=== PATIENT | female | born 1995 | race Caucasian/White ===

== ENCOUNTER 2023-06-10 04:25 | Emergency (ER) | payer OTHER ==
[~2023-06-10] VITALS: Ht 157.5 cm; Wt 54.5 kg
[~2023-06-10 04:25] MED LIST: ACET-1008 PO; CIPR-259 PO; IBUP-1985 PO; METR-159 PO; PANT40TA54 PO
[2023-06-10 04:29] VITALS: TEMP 99.1
[2023-06-10 05:54] LABS: URINE HCG NEGATIVE (NEG)
[2023-06-10 06:04] LABS: INR 1.2 INR; PROTHROMBIN TIME 12.4 SECONDS (9.0-12.0)
[2023-06-10 06:29] LABS: ALANINE AMINOTRANSFERASE 36 U/L (12-78); ALBUMIN 2.6 G/DL (3.4-5.0); ALBUMIN/GLOBULIN RATIO 0.6 (1.1-1.5); ALKALINE PHOSPHATASE 212 IU/L (46-116); ASPARTATE AMINO TRANSFERASE 34 U/L (10-37); BILIRUBIN,TOTAL 0.9 MG/DL (0.1-1.0); BLOOD UREA NITROGEN 2 MG/DL (7-18); BUN/CREATININE RATIO 3.3 (10.0-20.0); CALCIUM 8.7 MG/DL (8.5-10.1); CREATININE 0.61 MG/DL (0.40-0.90); GLUCOSE 101 MG/DL (70-104); TOTAL CARBON DIOXIDE 24.9 MMOL/L (24-32); TOTAL PROTEIN 6.8 G/DL (6.4-8.2); eCRCL 108 ML/MIN; eGFR > 90 ML/MIN
[2023-06-10 06:37] LABS: HEMOGLOBIN 10.7 g/dl (12.0-16.0); MEAN PLATELET VOLUME 8.4 FL (7.4-10.4)
[2023-06-10 06:41] LABS: BASOPHILS # (AUTO) 0.1 X10'3 (0-0.2); BASOPHILS % (AUTO) 0.6 % (0-1); EOSINOPHILS # (AUTO) 0.2 X10'3 (0-0.9); EOSINOPHILS % (AUTO) 2.2 % (0-6); HEMATOCRIT 33.4 % (35.0-45.0); LYMPHOCYTES # (AUTO) 1.6 X10'3 (1.1-4.8); LYMPHOCYTES % (AUTO) 14.7 % (21-51); MEAN CORPUSCULAR HEMOGLOBIN 27.8 PG (27.0-31.0); MEAN CORPUSCULAR HGB CONC 32.1 g/dL (33.0-36.5); MEAN CORPUSCULAR VOLUME 86.7 FL (78-98); MONOCYTES # (AUTO) 0.8 X10'3 (0-0.9); MONOCYTES % (AUTO) 7.5 % (2-12); NEUTROPHILS # (AUTO) 7.9 X10'3 (1.8-7.7); PLATELET COUNT 670 X10'3 (140-440); RED BLOOD COUNT 3.86 X10'6 (4.20-5.60); WHITE BLOOD COUNT 10.6 X10'3 (4.5-11.0)
[2023-06-10 06:46] LABS: ANION GAP 14 (8-16); CHLORIDE 104 MMOL/L (99-107); POTASSIUM 3.7 MMOL/L (3.5-5.1); SODIUM 143 MMOL/L (135-145)
[2023-06-10 08:40] VITALS: BP 118/88; PULSE 88; RESP 16; O2SAT 98
== END 2023-06-10 08:42 | disposition home or self-care (01) ==
LOC: ER 04:26
DX: K62.5 Hemorrhage of anus and rectum (principal); G89.18 Other acute postprocedural pain; Z79.899 Other long term (current) drug therapy; Z88.8 Allergy status to other drugs, medicaments and biological substances; Z79.2 Long term (current) use of antibiotics
CPT/HCPCS: 36415; 74176; 80053; 81025; 85025; 85610; 86885; 86900; 86901; 99285

== ENCOUNTER 2023-07-29 08:06 | Emergency (ER) | payer OTHER ==
[~2023-07-29] VITALS: Ht 157.5 cm; Wt 47.1 kg
[~2023-07-29 08:06] MED LIST changes: -CIPR-259 PO; -METR-159 PO
[2023-07-29 08:09] VITALS: TEMP 98.6
[2023-07-29] MEDS ORDERED: HYDR-3972 PO (08:42)
[2023-07-29] MEDS ORDERED: ONDA-104 (08:42)
[2023-07-29] MEDS ORDERED: PROC10TA97 (08:42)
[2023-07-29] MEDS ORDERED: APIX5TAB3 PO (08:42)
[2023-07-29 08:52] LABS: BASOPHILS % (AUTO) 2.2 % (0-1); EOSINOPHILS % (AUTO) 2.1 % (0-6); HEMATOCRIT 34.2 % (35.0-45.0); HEMOGLOBIN 11.2 g/dl (12.0-16.0); LYMPHOCYTES # (AUTO) 1.2 X10'3 (1.1-4.8); LYMPHOCYTES % (AUTO) 61.7 % (21-51); MEAN CORPUSCULAR HEMOGLOBIN 26.5 PG (27.0-31.0); MEAN CORPUSCULAR HGB CONC 32.6 g/dL (33.0-36.5); MEAN CORPUSCULAR VOLUME 81.2 FL (78-98); MEAN PLATELET VOLUME 7.4 FL (7.4-10.4); MONOCYTES # (AUTO) 0.1 X10'3 (0-0.9); MONOCYTES % (AUTO) 5.4 % (2-12); NEUTROPHILS # (AUTO) 0.6 X10'3 (1.8-7.7); NEUTROPHILS % (AUTO) 28.6 % (42-75); PLATELET COUNT 435 X10'3 (140-440); RED BLOOD COUNT 4.22 X10'6 (4.20-5.60); RED CELL DISTRIBUTION WIDTH 15.1 % (11.5-14.5); WHITE BLOOD COUNT 1.9 X10'3 (4.5-11.0)
[2023-07-29] MEDS: normal saline 1000ml 1,000 ML IV ONE (09:01)
[2023-07-29 09:14] LABS: D-DIMER 0.54 MG/L FEU (0-0.50)
[2023-07-29 10:14] LABS: TOTAL CELLS COUNTED 100
[2023-07-29 10:16] LABS: ANISOCYTOSIS FEW; PLATELET ESTIMATE NORMAL; STOMATOCYTES FEW
[2023-07-29 10:51] VITALS: PULSE 79
[2023-07-29 10:58] LABS: ALANINE AMINOTRANSFERASE 20 U/L (12-78); ALBUMIN 2.8 G/DL (3.4-5.0); ALBUMIN/GLOBULIN RATIO 0.6 (1.1-1.5); ALKALINE PHOSPHATASE 229 IU/L (46-116); ANION GAP 9 (8-16); ASPARTATE AMINO TRANSFERASE 23 U/L (10-37); BILIRUBIN,TOTAL 0.4 MG/DL (0.1-1.0); BLOOD UREA NITROGEN 10 MG/DL (7-18); BUN/CREATININE RATIO 11.9 (10.0-20.0); CHLORIDE 98 MMOL/L (99-107); CREATININE 0.84 MG/DL (0.40-0.90); GLUCOSE 97 MG/DL (70-104); POTASSIUM 4.3 MMOL/L (3.5-5.1); SODIUM 132 MMOL/L (135-145); TOTAL CARBON DIOXIDE 24.8 MMOL/L (24-32); TOTAL PROTEIN 7.5 G/DL (6.4-8.2); eCRCL 73 ML/MIN; eGFR 80 ML/MIN
[2023-07-29 11:06] LABS: THYROID STIMULATING HORMONE 3.82 ulU/ml (0.34-4.50)
[2023-07-29 11:29] VITALS: BP 100/74; RESP 16; O2SAT 75
== END 2023-07-29 11:34 | disposition home or self-care (01) ==
LOC: ER 08:07
DX: R00.0 Tachycardia, unspecified (principal); Z85.038 Personal history of other malignant neoplasm of large intestine
CPT/HCPCS: 36415; 71045; 80053; 84443; 84484; 85007; 85025; 85379; 93005; 96360; 99285; J7030

== ENCOUNTER 2023-08-27 18:36 | Inpatient (IN) | payer MEDICAID, OTHER ==
[~2023-08-27] VITALS: Ht 157.5 cm; Wt 43.1 kg
[~2023-08-27 18:36] MED LIST changes: +APIX5TAB3 PO; +HYDR-3972 PO; +ONDA-104; +PROC10TA97
[2023-08-27] MEDS: normal saline 1000ML IV soln IVB ONE (19:25)
[2023-08-27 19:36] LABS: BASOPHILS # (AUTO) 0.1 X10'3 (0-0.2); NEUTROPHILS # (AUTO) 17.6 X10'3 (1.8-7.7)
[2023-08-27 19:38] LABS: BASOPHILS % (AUTO) 0.3 % (0-1); EOSINOPHILS % (AUTO) 0 % (0-6); HEMATOCRIT 29.7 % (35.0-45.0); HEMOGLOBIN 9.8 g/dl (12.0-16.0); LYMPHOCYTES # (AUTO) 1.2 X10'3 (1.1-4.8); MEAN CORPUSCULAR HGB CONC 32.9 g/dL (33.0-36.5); MEAN CORPUSCULAR VOLUME 75.7 FL (78-98); MONOCYTES # (AUTO) 0.8 X10'3 (0-0.9); MONOCYTES % (AUTO) 4.2 % (2-12); NEUTROPHILS % (AUTO) 89.5 % (42-75); PLATELET COUNT 868 X10'3 (140-440); RED BLOOD COUNT 3.92 X10'6 (4.20-5.60); WHITE BLOOD COUNT 19.7 X10'3 (4.5-11.0)
[2023-08-27 19:48] LABS: ALANINE AMINOTRANSFERASE 11 U/L (12-78); ALBUMIN 2.4 G/DL (3.4-5.0); ALBUMIN/GLOBULIN RATIO 0.4 (1.1-1.5); ALKALINE PHOSPHATASE 168 IU/L (46-116); ANION GAP 13 (8-16); ASPARTATE AMINO TRANSFERASE 14 U/L (10-37); BILIRUBIN,TOTAL 0.2 MG/DL (0.1-1.0); BLOOD UREA NITROGEN 12 MG/DL (7-18); BUN/CREATININE RATIO 14.3 (10.0-20.0); CHLORIDE 97 MMOL/L (99-107); CREATININE 0.84 MG/DL (0.40-0.90); GLUCOSE 134 MG/DL (70-104); POTASSIUM 4.8 MMOL/L (3.5-5.1); SODIUM 135 MMOL/L (135-145); TOTAL PROTEIN 8.2 G/DL (6.4-8.2); eCRCL 70 ML/MIN; eGFR 80 ML/MIN
[2023-08-27 19:56] LABS: BILIRUBIN,DIRECT 0.1 MG/DL (0-0.3); LIPASE 15 U/L (16-77); MAGNESIUM 2.1 MG/DL (1.5-2.4); PRO BRAIN NATRIURETIC PEPTIDE 230 PG/ML (0-125)
[2023-08-27 20:20] LABS: ANISOCYTOSIS 1+; PLATELET ESTIMATE INCREASED; TOTAL CELLS COUNTED 100
[2023-08-27 20:21] LABS: MICROCYTOSIS 1+
[2023-08-27 20:23] LABS: SCHISTOCYTES FEW; TEAR DROP CELLS FEW
[2023-08-27] MEDS: cefepime 2g/NS 100ml ADVANTAGE 100 ML IV STA (20:29)
[2023-08-27] MEDS ORDERED: iohexol 300mg/ml 100ml inj. ONE (20:32)
[2023-08-27 20:33] LABS: BILIRUBIN,URINE NEGATIVE (Neg); CLARITY,URINE CLOUDY (Clear); COLOR,URINE YELLOW (Yellow); GLUCOSE, URINE NEGATIVE (Neg); KETONES,URINE NEGATIVE (Neg); LEUKOCYTE ESTERASE ,URINE NEGATIVE (Neg); NITRITES, URINE NEGATIVE (Neg); OCCULT BLOOD,URINE NEGATIVE (Neg); PH,URINE 6.5 (4.8-8.0); PROTEIN,URINE NEGATIVE (Neg); UROBILINOGEN,URINE 0.2 E.U/dL (0.2-1.0)
[2023-08-27] MEDS: ondansetron/PF 4mg/2ml inj IV ONE (20:33)
[2023-08-27 20:34] LABS: UA COLLECTION TYPE STRAIGHT CATH
[2023-08-27 20:58] LABS: SQUAMOUS EPITHELIAL CELL,UR FEW /LPF (FEW); TRANSITIONAL EPI CELLS,URINE FEW /HPF
[2023-08-27 21:04] LABS: BACTERIA,URINE FEW /HPF (Neg); RBC,URINE 0-2 /HPF (0-2); WBC,URINE 0-4 /HPF (0-4)
[2023-08-27 21:07] LABS: AMORPHOUS PHOSPHATES 1+
[2023-08-27] MEDS: HYDROcodone/acetaminophen 10/325mg tab PO ONE (22:46)
[2023-08-27] MEDS ORDERED: magnesium 2GM in 50ml NS 50 ML IV PRN (23:25)
[2023-08-27] MEDS ORDERED: mag hydrox/Alum hydrox/simeth 30ml oral suspension PO PRN (23:25)
[2023-08-27] MEDS ORDERED: potassium Cl 40MEQ/1/2NS 520ml 520 ML IV PRN (23:25)
[2023-08-27] MEDS ORDERED: acetaminophen 325mg tablet PO PRN (23:25)
[2023-08-27] MEDS ORDERED: magnesium Cl slow-release 64mg tablet PO PRN (23:25)
[2023-08-27] MEDS ORDERED: magnesium 4gm in 100ml NS 100 ML IV PRN (23:25)
[2023-08-27] MEDS ORDERED: potassium Cl 20 mEq SR tablet PO PRN ×2 (23:25)
[2023-08-27] MEDS ORDERED: morphine 2 MG/ML inj. syringe IV PRN (23:25)
[2023-08-27] MEDS: normal saline 1000ml 1,000 ML IV SCH (23:25)
[2023-08-27 23:47] LABS: MAGNESIUM 1.9 MG/DL (1.5-2.4); PHOSPHORUS 4.8 MG/DL (2.3-4.5)
[2023-08-28] MEDS: morphine 2 MG/ML inj. syringe IV PRN ×2 (00:38→06:55)
[2023-08-28] MEDS: HYDROmorphone inj. 0.5 MG/0.5 ML DISP.SYRIN IV ONE ×2 (03:01→04:48)
[2023-08-28] MEDS ORDERED: HYDROmorphone 1 mg/ml syringe IV PRN (03:30)
[2023-08-28] MEDS: piperacillin/tazo 3.375gm/50ml 50 ML IV SCH (04:47)
[2023-08-28] MEDS: ringers solution, lacted 1,000 ML IV ONE (05:32)
[2023-08-28 08:00] VITALS: RESP 20; O2SAT 97
[2023-08-28] MEDS: K and/or MAG REPLACEMENT MC SCH (08:00)
[2023-08-28 08:16] LABS: EOSINOPHILS % (AUTO) 0 % (0-6); LYMPHOCYTES # (AUTO) 0.8 X10'3 (1.1-4.8)
[2023-08-28 08:19] LABS: BASOPHILS # (AUTO) 0.1 X10'3 (0-0.2); BASOPHILS % (AUTO) 0.3 % (0-1); HEMATOCRIT 33.3 % (35.0-45.0); HEMOGLOBIN 10.5 g/dl (12.0-16.0); LYMPHOCYTES % (AUTO) 3.1 % (21-51); MEAN CORPUSCULAR HGB CONC 31.5 g/dL (33.0-36.5); MONOCYTES % (AUTO) 3.7 % (2-12); NEUTROPHILS # (AUTO) 24.3 X10'3 (1.8-7.7); NEUTROPHILS % (AUTO) 92.9 % (42-75); PLATELET COUNT 884 X10'3 (140-440); RED BLOOD COUNT 4.38 X10'6 (4.20-5.60); RED CELL DISTRIBUTION WIDTH 17.3 % (11.5-14.5)
[2023-08-28 08:26] LABS: WHITE BLOOD COUNT 26.1 X10'3 (4.5-11.0)
[2023-08-28 08:33] VITALS: BP 136/101; PULSE 126; RESP 20; O2SAT 95
[2023-08-28 08:38] LABS: ALANINE AMINOTRANSFERASE 7 U/L (12-78); ALBUMIN/GLOBULIN RATIO 0.4 (1.1-1.5); ALKALINE PHOSPHATASE 154 IU/L (46-116); ANION GAP 10 (8-16); ASPARTATE AMINO TRANSFERASE 12 U/L (10-37); BILIRUBIN,TOTAL 0.4 MG/DL (0.1-1.0); BLOOD UREA NITROGEN 13 MG/DL (7-18); BUN/CREATININE RATIO 17.6 (10.0-20.0); CALCIUM 9.3 MG/DL (8.5-10.1); CHLORIDE 99 MMOL/L (99-107); CREATININE 0.74 MG/DL (0.40-0.90); GLUCOSE 123 MG/DL (70-104); POTASSIUM 4.4 MMOL/L (3.5-5.1); SODIUM 135 MMOL/L (135-145); TOTAL CARBON DIOXIDE 26.5 MMOL/L (24-32); TOTAL PROTEIN 7.2 G/DL (6.4-8.2); eCRCL 80 ML/MIN; eGFR > 90 ML/MIN
[2023-08-28 09:19] LABS: TOTAL CELLS COUNTED 100
[2023-08-28 09:20] LABS: ELLIPTOCYTES FEW; PLATELET ESTIMATE INCREASED; POIKILOCYTOSIS 1+; ROULEAUX 1+
[2023-08-28] MEDS: metroNIDAZOLE-Flagyl 500mg/NS 100 ML IV SCH (09:40)
[2023-08-28] MEDS: enoxaparin 40mg/0.4ml syringe SUBCUT SCH (09:43)
[2023-08-28 10:00] VITALS: BP 138/99; PULSE 110; RESP 12; TEMP 97.8; O2SAT 97
[2023-08-28] MEDS: HYDROmorphone 1 mg/ml syringe IV PRN ×2 (10:51→14:11)
[2023-08-28 18:00] VITALS: BP 143/98; PULSE 86; RESP 18; TEMP 97.4; O2SAT 96
[2023-08-28 20:00] VITALS: RESP 20; O2SAT 97
[2023-08-28 22:00] VITALS: BP 145/98; PULSE 114; RESP 17; TEMP 98.9; O2SAT 95
[2023-08-29 06:00] VITALS: BP 177/116; PULSE 103; RESP 16; TEMP 98.1; O2SAT 95
[2023-08-29 06:27] LABS: BASOPHILS % (AUTO) 0.1 % (0-1); EOSINOPHILS % (AUTO) 0 % (0-6); HEMOGLOBIN 9.6 g/dl (12.0-16.0); LYMPHOCYTES # (AUTO) 1.3 X10'3 (1.1-4.8); MEAN PLATELET VOLUME 7.1 FL (7.4-10.4); NEUTROPHILS # (AUTO) 9.7 X10'3 (1.8-7.7)
[2023-08-29 06:29] LABS: HEMATOCRIT 29.7 % (35.0-45.0); LYMPHOCYTES % (AUTO) 11.2 % (21-51); MEAN CORPUSCULAR HEMOGLOBIN 24.7 PG (27.0-31.0); MEAN CORPUSCULAR HGB CONC 32.2 g/dL (33.0-36.5); MEAN CORPUSCULAR VOLUME 76.7 FL (78-98); MONOCYTES # (AUTO) 0.9 X10'3 (0-0.9); MONOCYTES % (AUTO) 7.4 % (2-12); NEUTROPHILS % (AUTO) 81.3 % (42-75); PLATELET COUNT 729 X10'3 (140-440); RED BLOOD COUNT 3.88 X10'6 (4.20-5.60); RED CELL DISTRIBUTION WIDTH 17.5 % (11.5-14.5)
[2023-08-29 06:40] LABS: ALANINE AMINOTRANSFERASE 6 U/L (12-78); ALBUMIN 1.8 G/DL (3.4-5.0); ALBUMIN/GLOBULIN RATIO 0.4 (1.1-1.5); ALKALINE PHOSPHATASE 112 IU/L (46-116); ANION GAP 5 (8-16); ASPARTATE AMINO TRANSFERASE 8 U/L (10-37); BILIRUBIN,TOTAL 0.4 MG/DL (0.1-1.0); BLOOD UREA NITROGEN 19 MG/DL (7-18); BUN/CREATININE RATIO 22.6 (10.0-20.0); CALCIUM 8.7 MG/DL (8.5-10.1); CHLORIDE 104 MMOL/L (99-107); CREATININE 0.84 MG/DL (0.40-0.90); GLUCOSE 118 MG/DL (70-104); SODIUM 138 MMOL/L (135-145); TOTAL CARBON DIOXIDE 28.6 MMOL/L (24-32); TOTAL PROTEIN 6.4 G/DL (6.4-8.2); eCRCL 70 ML/MIN; eGFR 80 ML/MIN
[2023-08-29 10:00] VITALS: BP 129/97; PULSE 103; RESP 14; TEMP 98.6; O2SAT 95
[2023-08-29] MEDS ORDERED: HYDROmorphone 1 mg/ml syringe IV PRN (11:20)
[2023-08-29 13:30] VITALS: RESP 14; O2SAT 95
[2023-08-29 14:30] VITALS: PULSE 85; RESP 16; O2SAT 95
[2023-08-29 20:00] VITALS: RESP 15; O2SAT 95
[2023-08-30 06:00] VITALS: BP 120/79; PULSE 77; RESP 14; TEMP 98.9; O2SAT 95
[2023-08-30 07:30] VITALS: RESP 16
[2023-08-30 09:05] LABS: BASOPHILS % (AUTO) 0.1 % (0-1); MEAN CORPUSCULAR HEMOGLOBIN 24.6 PG (27.0-31.0); MEAN CORPUSCULAR VOLUME 77.6 FL (78-98); MONOCYTES # (AUTO) 0.8 X10'3 (0-0.9); NEUTROPHILS # (AUTO) 8.6 X10'3 (1.8-7.7); WHITE BLOOD COUNT 11.3 X10'3 (4.5-11.0)
[2023-08-30 09:07] LABS: EOSINOPHILS % (AUTO) 0.1 % (0-6); HEMATOCRIT 27.5 % (35.0-45.0); HEMOGLOBIN 8.7 g/dl (12.0-16.0); LYMPHOCYTES # (AUTO) 1.8 X10'3 (1.1-4.8); LYMPHOCYTES % (AUTO) 16.2 % (21-51); MEAN CORPUSCULAR HGB CONC 31.8 g/dL (33.0-36.5); MEAN PLATELET VOLUME 7.2 FL (7.4-10.4); MONOCYTES % (AUTO) 7.1 % (2-12); NEUTROPHILS % (AUTO) 76.5 % (42-75); PLATELET COUNT 599 X10'3 (140-440); RED BLOOD COUNT 3.54 X10'6 (4.20-5.60)
[2023-08-30 09:33] LABS: ALANINE AMINOTRANSFERASE 7 U/L (12-78); ALBUMIN 2.1 G/DL (3.4-5.0); ALBUMIN/GLOBULIN RATIO 0.5 (1.1-1.5); ALKALINE PHOSPHATASE 103 IU/L (46-116); ANION GAP 11 (8-16); ASPARTATE AMINO TRANSFERASE 9 U/L (10-37); BILIRUBIN,TOTAL 0.3 MG/DL (0.1-1.0); BLOOD UREA NITROGEN 20 MG/DL (7-18); BUN/CREATININE RATIO 26.7 (10.0-20.0); CALCIUM 8.6 MG/DL (8.5-10.1); CHLORIDE 106 MMOL/L (99-107); CREATININE 0.75 MG/DL (0.40-0.90); GLUCOSE 72 MG/DL (70-104); POTASSIUM 4.2 MMOL/L (3.5-5.1); SODIUM 144 MMOL/L (135-145); TOTAL CARBON DIOXIDE 26.6 MMOL/L (24-32); eCRCL 79 ML/MIN; eGFR > 90 ML/MIN
[2023-08-30 10:00] VITALS: BP 147/104; RESP 15; TEMP 97.9; O2SAT 96
[2023-08-30] MEDS: magnesium hydroxide 30ml (MOM) UD suspension PO PRN (10:28)
[2023-08-30 18:00] VITALS: BP 141/96; PULSE 80; RESP 20; TEMP 98.4; O2SAT 96
[2023-08-30 20:00] VITALS: RESP 20; O2SAT 96
[2023-08-30] MEDS: ondansetron/PF 4mg/2ml inj IV PRN (20:22)
[2023-08-30 22:00] VITALS: BP 122/95; PULSE 96; RESP 15; TEMP 97.5; O2SAT 93
[2023-08-31 06:00] VITALS: BP 125/90; PULSE 85; RESP 18; TEMP 98; O2SAT 95
[2023-08-31 07:10] LABS: BASOPHILS % (AUTO) 0.1 % (0-1); EOSINOPHILS % (AUTO) 0.1 % (0-6); HEMATOCRIT 26.7 % (35.0-45.0); HEMOGLOBIN 8.4 g/dl (12.0-16.0); LYMPHOCYTES # (AUTO) 1.6 X10'3 (1.1-4.8); MEAN CORPUSCULAR HEMOGLOBIN 24.4 PG (27.0-31.0); MEAN CORPUSCULAR HGB CONC 31.4 g/dL (33.0-36.5); MEAN CORPUSCULAR VOLUME 77.8 FL (78-98); MEAN PLATELET VOLUME 7.5 FL (7.4-10.4); MONOCYTES # (AUTO) 0.8 X10'3 (0-0.9); MONOCYTES % (AUTO) 4.9 % (2-12); NEUTROPHILS # (AUTO) 13.5 X10'3 (1.8-7.7); NEUTROPHILS % (AUTO) 84.9 % (42-75); PLATELET COUNT 517 X10'3 (140-440); RED BLOOD COUNT 3.43 X10'6 (4.20-5.60); RED CELL DISTRIBUTION WIDTH 17.4 % (11.5-14.5); WHITE BLOOD COUNT 15.9 X10'3 (4.5-11.0)
[2023-08-31 07:27] LABS: ALANINE AMINOTRANSFERASE 6 U/L (12-78); ALBUMIN 2.1 G/DL (3.4-5.0); ALBUMIN/GLOBULIN RATIO 0.5 (1.1-1.5); ALKALINE PHOSPHATASE 92 IU/L (46-116); ANION GAP 10 (8-16); ASPARTATE AMINO TRANSFERASE 13 U/L (10-37); BILIRUBIN,TOTAL 0.3 MG/DL (0.1-1.0); BLOOD UREA NITROGEN 16 MG/DL (7-18); CALCIUM 8.7 MG/DL (8.5-10.1); CHLORIDE 108 MMOL/L (99-107); CREATININE 0.64 MG/DL (0.40-0.90); GLUCOSE 69 MG/DL (70-104); POTASSIUM 3.6 MMOL/L (3.5-5.1); SODIUM 146 MMOL/L (135-145); TOTAL CARBON DIOXIDE 28.1 MMOL/L (24-32); TOTAL PROTEIN 6.4 G/DL (6.4-8.2); eCRCL 92 ML/MIN; eGFR > 90 ML/MIN
[2023-08-31 07:52] VITALS: RESP 16; O2SAT 94
[2023-08-31 10:00] VITALS: BP 151/93; PULSE 74; RESP 18; TEMP 98; O2SAT 97
[2023-08-31] MEDS: dextrose 5%-1/4 normal saline 1,000 ML IV SCH (12:46)
[2023-08-31] MEDS: methylnaltrexone br 12mg/0.6ml inj***SubQ only SQ ONE (13:05)
[2023-08-31 18:00] VITALS: BP 129/91; PULSE 70; RESP 11; TEMP 97.3; O2SAT 97
[2023-08-31 20:00] VITALS: RESP 11; O2SAT 97
[2023-08-31 22:00] VITALS: BP 151/98; PULSE 102; RESP 16; TEMP 97.7; O2SAT 96
[2023-08-31] MEDS: LORazepam 2 mg/ml vial IV PRN (22:21)
[2023-09-01 05:00] VITALS: BP 137/96; PULSE 94; RESP 15; TEMP 97.7; O2SAT 97
[2023-09-01 06:12] LABS: BASOPHILS % (AUTO) 0.3 % (0-1); EOSINOPHILS % (AUTO) 0.2 % (0-6); HEMATOCRIT 29.3 % (35.0-45.0); HEMOGLOBIN 9.3 g/dl (12.0-16.0); LYMPHOCYTES # (AUTO) 1.5 X10'3 (1.1-4.8); LYMPHOCYTES % (AUTO) 9.7 % (21-51); MEAN CORPUSCULAR HEMOGLOBIN 24.6 PG (27.0-31.0); MEAN CORPUSCULAR HGB CONC 31.8 g/dL (33.0-36.5); MEAN CORPUSCULAR VOLUME 77.4 FL (78-98); MEAN PLATELET VOLUME 7.6 FL (7.4-10.4); MONOCYTES # (AUTO) 0.7 X10'3 (0-0.9); MONOCYTES % (AUTO) 4.5 % (2-12); NEUTROPHILS # (AUTO) 13.6 X10'3 (1.8-7.7); NEUTROPHILS % (AUTO) 85.3 % (42-75); PLATELET COUNT 588 X10'3 (140-440); RED BLOOD COUNT 3.79 X10'6 (4.20-5.60); RED CELL DISTRIBUTION WIDTH 17.2 % (11.5-14.5); WHITE BLOOD COUNT 15.9 X10'3 (4.5-11.0)
[2023-09-01 06:40] LABS: ALANINE AMINOTRANSFERASE 7 U/L (12-78); ALBUMIN 2.1 G/DL (3.4-5.0); ALBUMIN/GLOBULIN RATIO 0.5 (1.1-1.5); ALKALINE PHOSPHATASE 100 IU/L (46-116); ANION GAP 7 (8-16); ASPARTATE AMINO TRANSFERASE 19 U/L (10-37); BILIRUBIN,TOTAL 0.3 MG/DL (0.1-1.0); BLOOD UREA NITROGEN 10 MG/DL (7-18); BUN/CREATININE RATIO 14.9 (10.0-20.0); CALCIUM 8.6 MG/DL (8.5-10.1); CHLORIDE 103 MMOL/L (99-107); CREATININE 0.67 MG/DL (0.40-0.90); GLUCOSE 123 MG/DL (70-104); POTASSIUM 3.1 MMOL/L (3.5-5.1); SODIUM 141 MMOL/L (135-145); TOTAL CARBON DIOXIDE 30.7 MMOL/L (24-32); TOTAL PROTEIN 6.6 G/DL (6.4-8.2); eCRCL 88 ML/MIN; eGFR > 90 ML/MIN
[2023-09-01 08:00] VITALS: RESP 16; O2SAT 95
[2023-09-01 10:00] VITALS: BP 120/87; PULSE 71; RESP 16; TEMP 97.4; O2SAT 95
[2023-09-01] MEDS ORDERED: magnesium 4gm in 100ml NS 100 ML IV PRN (11:15)
[2023-09-01] MEDS ORDERED: magnesium Cl slow-release 64mg tablet PO PRN (11:15)
[2023-09-01] MEDS ORDERED: potassium Cl 20 mEq SR tablet PO PRN ×2 (11:15)
[2023-09-01] MEDS ORDERED: magnesium 2GM in 50ml NS 50 ML IV PRN (11:15)
[2023-09-01] MEDS: potassium Cl 40MEQ/1/2NS 520ml 520 ML IV PRN (12:13)
[2023-09-01] MEDS: diatr meglu/diatrizoate 30ml oral sol.-(3 dose) bottle PO SCH (13:17)
[2023-09-01 18:00] VITALS: BP 139/96; PULSE 77; RESP 16; TEMP 97.5; O2SAT 96
[2023-09-01 20:00] VITALS: RESP 16; O2SAT 95
[2023-09-01 22:00] VITALS: BP 135/93; PULSE 78; RESP 15; TEMP 97.9; O2SAT 96
[2023-09-02 03:49] VITALS: O2SAT 96
[2023-09-02 06:00] VITALS: BP 123/88; PULSE 85; RESP 15; TEMP 97.8; O2SAT 96
[2023-09-02 08:00] VITALS: RESP 15; O2SAT 96
[2023-09-02 10:00] VITALS: BP 123/88; PULSE 52; RESP 11; TEMP 98.7; O2SAT 100
[2023-09-02] MEDS ORDERED: Dextrose 10%-water IV solution 1,000 ML IV PRN (15:15)
[2023-09-02] MEDS: HYDROmorphone 1 mg/ml syringe IV PRN (16:20)
[2023-09-02 18:00] VITALS: BP 153/99; PULSE 84; RESP 10; TEMP 97.4; O2SAT 97
[2023-09-02 20:00] VITALS: RESP 12; O2SAT 96
[2023-09-03] VITALS (23 sets, daily range): BP systolic 112–149; BP diastolic 64–108; PULSE 63–124; RESP 10–21; TEMP 98–98.7; O2SAT 94–100
[2023-09-03 07:09] LABS: ALANINE AMINOTRANSFERASE 8 U/L (12-78); ALBUMIN/GLOBULIN RATIO 0.4 (1.1-1.5); ALKALINE PHOSPHATASE 89 IU/L (46-116); ANION GAP 6 (8-16); ASPARTATE AMINO TRANSFERASE 14 U/L (10-37); BILIRUBIN,TOTAL 0.5 MG/DL (0.1-1.0); BLOOD UREA NITROGEN 5 MG/DL (7-18); BUN/CREATININE RATIO 11.6 (10.0-20.0); CALCIUM 8.8 MG/DL (8.5-10.1); CHLORIDE 99 MMOL/L (99-107); CREATININE 0.43 MG/DL (0.40-0.90); GLUCOSE 104 MG/DL (70-104); MAGNESIUM 2.2 MG/DL (1.5-2.4); PHOSPHORUS 3.2 MG/DL (2.3-4.5); POTASSIUM 3.8 MMOL/L (3.5-5.1); PREALBUMIN 13.1 MG/DL (19-36); SODIUM 135 MMOL/L (135-145); TOTAL CARBON DIOXIDE 29.7 MMOL/L (24-32); TRIGLYCERIDES 104 MG/DL (20-135); eCRCL 137 ML/MIN; eGFR > 90 ML/MIN
[2023-09-03 07:14] LABS: BASOPHILS % (AUTO) 0.3 % (0-1); EOSINOPHILS # (AUTO) 0.1 X10'3 (0-0.9); EOSINOPHILS % (AUTO) 0.6 % (0-6); HEMATOCRIT 31.9 % (35.0-45.0); HEMOGLOBIN 10.1 g/dl (12.0-16.0); LYMPHOCYTES # (AUTO) 1.9 X10'3 (1.1-4.8); LYMPHOCYTES % (AUTO) 13.9 % (21-51); MEAN CORPUSCULAR HEMOGLOBIN 24.7 PG (27.0-31.0); MEAN CORPUSCULAR HGB CONC 31.5 g/dL (33.0-36.5); MEAN CORPUSCULAR VOLUME 78.5 FL (78-98); MEAN PLATELET VOLUME 8.3 FL (7.4-10.4); MONOCYTES # (AUTO) 1.1 X10'3 (0-0.9); MONOCYTES % (AUTO) 8.2 % (2-12); NEUTROPHILS # (AUTO) 10.7 X10'3 (1.8-7.7); PLATELET COUNT 531 X10'3 (140-440); RED BLOOD COUNT 4.07 X10'6 (4.20-5.60); RED CELL DISTRIBUTION WIDTH 17.5 % (11.5-14.5); WHITE BLOOD COUNT 13.9 X10'3 (4.5-11.0)
[2023-09-03] MEDS: MVI, adult No.4 with vit. K 10 ML in dextrose 5% water 500ml 500 ML IV SCH (08:01)
[2023-09-03] MEDS: fat emulsion 20% inj. 100 ML IV SCH (08:05)
[2023-09-03] MEDS ORDERED: BUPIVAcaine/PF 2.5mg/ml (0.25%) 10ml vial ONE (13:27)
[2023-09-03] MEDS ORDERED: BUPIVACAINE liposomal/PF 13.3 MG/ML vial IM ONE (13:27)
[2023-09-03] MEDS ORDERED: sevoflurane 250ml liquid IH ONE (14:57)
[2023-09-03] MEDS ORDERED: midazolam 1 mg/ML 2ml injection ONE (15:05)
[2023-09-03] MEDS ORDERED: fentaNYL /PF 50mcg/ml 5ml ampule ONE (15:05)
[2023-09-03] MEDS ORDERED: propofol inj 20 ML IV ONE (15:28)
[2023-09-03] MEDS ORDERED: LIDOcaine 2% (20mg/ml) 5ml vial ONE (15:28)
[2023-09-03] MEDS ORDERED: rocuronium 10mg/ml inj IV ONE ×2 (15:28→16:42)
[2023-09-03] MEDS ORDERED: methylene blue (5mg/ml) 50mg/10ml ampul IV ONE (15:35)
[2023-09-03] MEDS ORDERED: protamine sulfate 10mg/ml inj. ONE (15:36)
[2023-09-03] MEDS ORDERED: labetalol 20mg/4ml (5mg/ml) syringe IV PRN (15:45)
[2023-09-03] MEDS ORDERED: ondansetron/PF 4mg/2ml inj IV PRN (15:45)
[2023-09-03] MEDS ORDERED: proCHLORperazine 10 MG/2 ml inj IV PRN (15:45)
[2023-09-03] MEDS ORDERED: enalaprilat dihydrate 2.5mg/2ml vial IV PRN (15:45)
[2023-09-03] MEDS ORDERED: morphine 4 MG/ML inj SYRINge IV PRN (15:45)
[2023-09-03] MEDS ORDERED: meperidine/PF 25mg/ml syringe IV PRN ×2 (15:45)
[2023-09-03] MEDS ORDERED: dexamethasone sod phosphate 4mg/ml inj. ONE (16:02)
[2023-09-03] MEDS ORDERED: ceFOXitin 1000 MG inj ONE ×2 (16:02)
[2023-09-03] MEDS ORDERED: ondansetron/PF 4mg/2ml inj ONE (17:08)
[2023-09-03] MEDS: meperidine/PF 25mg/ml syringe IV PRN (17:58)
[2023-09-03] MEDS: ringers solution, lacted 1,000 ML IV SCH (17:59)
[2023-09-03] MEDS: morphine 2 MG/ML inj. syringe IV PRN (18:34)
[2023-09-03] MEDS: diazepam inj 5 MG/ML inj. IV PRN (23:54)
[2023-09-04] MEDS: piperacillin/tazo 3.375gm/50ml 50 ML IV SCH (00:05)
[2023-09-04 02:00] VITALS: BP 132/100; PULSE 123; RESP 16; TEMP 97.2; O2SAT 97
[2023-09-04 06:00] VITALS: BP 140/98; PULSE 125; RESP 16; TEMP 97; O2SAT 95
[2023-09-04 08:23] LABS: ALANINE AMINOTRANSFERASE 7 U/L (12-78); ALBUMIN 1.7 G/DL (3.4-5.0); ALBUMIN/GLOBULIN RATIO 0.4 (1.1-1.5); ALKALINE PHOSPHATASE 69 IU/L (46-116); ANION GAP 6 (8-16); ASPARTATE AMINO TRANSFERASE 25 U/L (10-37); BILIRUBIN,TOTAL 0.5 MG/DL (0.1-1.0); BLOOD UREA NITROGEN 12 MG/DL (7-18); BUN/CREATININE RATIO 29.3 (10.0-20.0); CALCIUM 8.2 MG/DL (8.5-10.1); CHLORIDE 104 MMOL/L (99-107); CREATININE 0.41 MG/DL (0.40-0.90); GLUCOSE 126 MG/DL (70-104); PHOSPHORUS 2.9 MG/DL (2.3-4.5); POTASSIUM 4.9 MMOL/L (3.5-5.1); SODIUM 135 MMOL/L (135-145); TOTAL CARBON DIOXIDE 25.3 MMOL/L (24-32); TOTAL PROTEIN 6.3 G/DL (6.4-8.2); eCRCL 160 ML/MIN; eGFR > 90 ML/MIN
[2023-09-04] MEDS ORDERED: naloxone 0.4 mg/ml inj IV PRN (11:35)
[2023-09-04] MEDS ORDERED: HYDROmorph/NS 0.2 mg/ml PCA 100 ML IV SCH (11:52)
[2023-09-04 14:14] LABS: EOSINOPHILS % (AUTO) 0 % (0-6); HEMOGLOBIN 9.3 g/dl (12.0-16.0); WHITE BLOOD COUNT 18.2 X10'3 (4.5-11.0)
[2023-09-04] MEDS: HYDROmorph/NS 0.2 mg/ml PCA 100 ML IV SCH (14:14)
[2023-09-04 14:17] LABS: BASOPHILS % (AUTO) 0.2 % (0-1); LYMPHOCYTES % (AUTO) 5.5 % (21-51); MEAN CORPUSCULAR HEMOGLOBIN 24.5 PG (27.0-31.0); MEAN CORPUSCULAR HGB CONC 30.9 g/dL (33.0-36.5); MEAN CORPUSCULAR VOLUME 79.2 FL (78-98); MEAN PLATELET VOLUME 8.5 FL (7.4-10.4); MONOCYTES # (AUTO) 0.9 X10'3 (0-0.9); MONOCYTES % (AUTO) 4.8 % (2-12); NEUTROPHILS # (AUTO) 16.3 X10'3 (1.8-7.7); NEUTROPHILS % (AUTO) 89.5 % (42-75); PLATELET COUNT 626 X10'3 (140-440); RED BLOOD COUNT 3.79 X10'6 (4.20-5.60); RED CELL DISTRIBUTION WIDTH 18.3 % (11.5-14.5)
[2023-09-04 14:47] LABS: ANISOCYTOSIS 2+; LARGE PLATELETS FEW; MICROCYTOSIS 1+; PLATELET ESTIMATE INCREASED
[2023-09-04 14:48] LABS: BURR CELLS 1+; TEAR DROP CELLS FEW
[2023-09-04 14:49] LABS: POLYCHROMASIA FEW
[2023-09-04 14:50] LABS: ELLIPTOCYTES FEW
[2023-09-04 18:00] VITALS: BP 126/102; PULSE 130; RESP 18; TEMP 97.8; O2SAT 96
[2023-09-04 22:00] VITALS: BP 135/70; PULSE 130; RESP 16; TEMP 97.7; O2SAT 97
[2023-09-04 23:00] VITALS: PULSE 121
[2023-09-05] VITALS (8 sets, daily range): BP systolic 123–140; BP diastolic 85–104; PULSE 120–139; RESP 16–18; TEMP 97.4–98.3; O2SAT 97–98
[2023-09-05 07:44] LABS: BASOPHILS # (AUTO) 0.1 X10'3 (0-0.2); BASOPHILS % (AUTO) 0.3 % (0-1); EOSINOPHILS # (AUTO) 0.1 X10'3 (0-0.9); EOSINOPHILS % (AUTO) 0.4 % (0-6); HEMATOCRIT 28.9 % (35.0-45.0); HEMOGLOBIN 9.1 g/dl (12.0-16.0); LYMPHOCYTES # (AUTO) 1.6 X10'3 (1.1-4.8); LYMPHOCYTES % (AUTO) 10.1 % (21-51); MEAN CORPUSCULAR HEMOGLOBIN 24.7 PG (27.0-31.0); MEAN CORPUSCULAR HGB CONC 31.4 g/dL (33.0-36.5); MEAN CORPUSCULAR VOLUME 78.6 FL (78-98); MEAN PLATELET VOLUME 8.3 FL (7.4-10.4); MONOCYTES # (AUTO) 1.4 X10'3 (0-0.9); MONOCYTES % (AUTO) 9.1 % (2-12); NEUTROPHILS # (AUTO) 12.5 X10'3 (1.8-7.7); NEUTROPHILS % (AUTO) 80.1 % (42-75); PLATELET COUNT 563 X10'3 (140-440); RED BLOOD COUNT 3.68 X10'6 (4.20-5.60); RED CELL DISTRIBUTION WIDTH 18.8 % (11.5-14.5); WHITE BLOOD COUNT 15.7 X10'3 (4.5-11.0)
[2023-09-05 08:03] LABS: ALANINE AMINOTRANSFERASE 6 U/L (12-78); ALBUMIN 1.7 G/DL (3.4-5.0); ALBUMIN/GLOBULIN RATIO 0.3 (1.1-1.5); ALKALINE PHOSPHATASE 81 IU/L (46-116); ANION GAP 3 (8-16); ASPARTATE AMINO TRANSFERASE 23 U/L (10-37); BILIRUBIN,TOTAL 0.4 MG/DL (0.1-1.0); BLOOD UREA NITROGEN 12 MG/DL (7-18); BUN/CREATININE RATIO 27.3 (10.0-20.0); CALCIUM 8.5 MG/DL (8.5-10.1); CHLORIDE 99 MMOL/L (99-107); CREATININE 0.44 MG/DL (0.40-0.90); GLUCOSE 106 MG/DL (70-104); MAGNESIUM 1.9 MG/DL (1.5-2.4); PHOSPHORUS 3.6 MG/DL (2.3-4.5); PREALBUMIN 12.3 MG/DL (19-36); SODIUM 129 MMOL/L (135-145); TOTAL CARBON DIOXIDE 27.3 MMOL/L (24-32); TOTAL PROTEIN 6.9 G/DL (6.4-8.2); TRIGLYCERIDES 94 MG/DL (20-135); eCRCL 136 ML/MIN; eGFR > 90 ML/MIN
[2023-09-05 08:21] LABS: POTASSIUM 4.8 MMOL/L (3.5-5.1)
[2023-09-05 08:36] LABS: ANISOCYTOSIS 2+; MICROCYTOSIS 1+; PLATELET ESTIMATE INCREASED
[2023-09-05 08:37] LABS: ELLIPTOCYTES FEW; SCHISTOCYTES FEW
[2023-09-05] MEDS: metoprolol tartrate 25mg tablet PO ONE (09:19)
[2023-09-05] MEDS: normal saline 1000ml 1,000 ML IV SCH (11:55)
[2023-09-05] MEDS: ZINC/COPPER/MANGANESE/SELENIUM 1 ML, chromic chloride inj. 10 MCG in AA 5%/CALCIUM/LYTE... IV SCH (19:03)
[2023-09-05] MEDS: metoprolol tartrate 25mg tablet PO SCH (20:22)
[2023-09-05] MEDS: diazepam inj 5 MG/ML inj. IV PRN (20:23)
[2023-09-06] VITALS (10 sets, daily range): BP systolic 114–125; BP diastolic 86–97; PULSE 106–152; RESP 13–22; TEMP 98.1–99.3; O2SAT 98–99
[2023-09-06 02:33] LABS: BASOPHILS # (AUTO) 0.1 X10'3 (0-0.2); BASOPHILS % (AUTO) 0.4 % (0-1); EOSINOPHILS # (AUTO) 0.1 X10'3 (0-0.9); EOSINOPHILS % (AUTO) 0.7 % (0-6); HEMATOCRIT 26.3 % (35.0-45.0); HEMOGLOBIN 8.3 g/dl (12.0-16.0); LYMPHOCYTES # (AUTO) 1.4 X10'3 (1.1-4.8); MEAN CORPUSCULAR HEMOGLOBIN 24.5 PG (27.0-31.0); MEAN CORPUSCULAR HGB CONC 31.6 g/dL (33.0-36.5); MEAN CORPUSCULAR VOLUME 77.5 FL (78-98); MEAN PLATELET VOLUME 7.6 FL (7.4-10.4); MONOCYTES # (AUTO) 1.2 X10'3 (0-0.9); MONOCYTES % (AUTO) 8.7 % (2-12); NEUTROPHILS # (AUTO) 11.3 X10'3 (1.8-7.7); NEUTROPHILS % (AUTO) 80.2 % (42-75); PLATELET COUNT 576 X10'3 (140-440); RED BLOOD COUNT 3.39 X10'6 (4.20-5.60); RED CELL DISTRIBUTION WIDTH 18.9 % (11.5-14.5); WHITE BLOOD COUNT 14.1 X10'3 (4.5-11.0)
[2023-09-06 03:34] LABS: ANISOCYTOSIS 2+; ELLIPTOCYTES FEW; MICROCYTOSIS 1+; PLATELET ESTIMATE INCREASED; POLYCHROMASIA FEW; SCHISTOCYTES FEW; TEAR DROP CELLS FEW
[2023-09-06 11:45] LABS: ALBUMIN 1.6 G/DL (3.4-5.0); ALBUMIN/GLOBULIN RATIO 0.3 (1.1-1.5); ALKALINE PHOSPHATASE 142 IU/L (46-116); ANION GAP 7 (8-16); ASPARTATE AMINO TRANSFERASE 18 U/L (10-37); BILIRUBIN,TOTAL 0.5 MG/DL (0.1-1.0); BLOOD UREA NITROGEN 8 MG/DL (7-18); CALCIUM 8.6 MG/DL (8.5-10.1); CHLORIDE 99 MMOL/L (99-107); GLUCOSE 110 MG/DL (70-104); POTASSIUM 4.1 MMOL/L (3.5-5.1); SODIUM 132 MMOL/L (135-145); TOTAL CARBON DIOXIDE 26.3 MMOL/L (24-32); eCRCL 150 ML/MIN; eGFR > 90 ML/MIN
[2023-09-06 11:51] LABS: ALANINE AMINOTRANSFERASE 12 U/L (12-78)
[2023-09-06] MEDS: PCA WASTE DOCUMENTATION 1 MG ML MC SCH (15:04)
[2023-09-06] MEDS: sodium ferric gluc complex inj 125 MG in normal saline 100ml IV soln 100 ML IV SCH (15:34)
[2023-09-07] VITALS (16 sets, daily range): BP systolic 104–132; BP diastolic 70–92; PULSE 112–160; RESP 16–24; TEMP 97.8–99.4; O2SAT 92–98
[2023-09-07] MEDS ORDERED: metoprolol tartrate 12.5mg (1/2 tablet) PO ONE
[2023-09-07] MEDS: metoprolol tartrate 1mg/ml inj IV ONE ×2 (00:49→05:39)
[2023-09-07] MEDS: ZINC/COPPER/MANGANESE/SELENIUM 1 ML, chromic chloride inj. 10 MCG in AA 5%/CALCIUM/LYTE... IV SCH (08:00)
[2023-09-07] MEDS: HYDROmorphone 1 mg/ml syringe IV PRN (14:49)
[2023-09-07] MEDS: metoprolol tartrate 1mg/ml inj IV PRN (14:50)
[2023-09-07] MEDS: morphine 2 MG/ML inj. syringe IV PRN (16:26)
[2023-09-08] VITALS (10 sets, daily range): BP systolic 107–136; BP diastolic 65–90; PULSE 113–154; RESP 14–22; TEMP 98.4–100; O2SAT 96–100
[2023-09-08 05:20] LABS: BASOPHILS # (AUTO) 0.1 X10'3 (0-0.2); BASOPHILS % (AUTO) 0.6 % (0-1); EOSINOPHILS # (AUTO) 0.2 X10'3 (0-0.9); EOSINOPHILS % (AUTO) 1.2 % (0-6); HEMATOCRIT 25.2 % (35.0-45.0); LYMPHOCYTES # (AUTO) 2.1 X10'3 (1.1-4.8); LYMPHOCYTES % (AUTO) 11.4 % (21-51); MEAN CORPUSCULAR HEMOGLOBIN 24.4 PG (27.0-31.0); MEAN CORPUSCULAR HGB CONC 31.6 g/dL (33.0-36.5); MEAN CORPUSCULAR VOLUME 77.1 FL (78-98); MONOCYTES # (AUTO) 1.5 X10'3 (0-0.9); MONOCYTES % (AUTO) 8.3 % (2-12); NEUTROPHILS # (AUTO) 14.5 X10'3 (1.8-7.7); NEUTROPHILS % (AUTO) 78.5 % (42-75); PLATELET COUNT 588 X10'3 (140-440); RED BLOOD COUNT 3.27 X10'6 (4.20-5.60); RED CELL DISTRIBUTION WIDTH 19.1 % (11.5-14.5); WHITE BLOOD COUNT 18.5 X10'3 (4.5-11.0)
[2023-09-08 05:32] LABS: ALANINE AMINOTRANSFERASE 25 U/L (12-78); ALBUMIN 1.7 G/DL (3.4-5.0); ALBUMIN/GLOBULIN RATIO 0.3 (1.1-1.5); ALKALINE PHOSPHATASE 210 IU/L (46-116); ANION GAP 6 (8-16); ASPARTATE AMINO TRANSFERASE 24 U/L (10-37); BILIRUBIN,TOTAL 0.8 MG/DL (0.1-1.0); BLOOD UREA NITROGEN 12 MG/DL (7-18); BUN/CREATININE RATIO 29.3 (10.0-20.0); CALCIUM 8.9 MG/DL (8.5-10.1); CHLORIDE 98 MMOL/L (99-107); CREATININE 0.41 MG/DL (0.40-0.90); GLUCOSE 103 MG/DL (70-104); MAGNESIUM 1.9 MG/DL (1.5-2.4); PHOSPHORUS 3.7 MG/DL (2.3-4.5); POTASSIUM 4.2 MMOL/L (3.5-5.1); SODIUM 134 MMOL/L (135-145); TOTAL CARBON DIOXIDE 29.9 MMOL/L (24-32); TOTAL PROTEIN 7.5 G/DL (6.4-8.2); eCRCL 142 ML/MIN; eGFR > 90 ML/MIN
[2023-09-08 07:48] LABS: PLATELET ESTIMATE INCREASED
[2023-09-08 07:49] LABS: ANISOCYTOSIS 2+; HYPOCHROMASIA 1+; MICROCYTOSIS 1+; POLYCHROMASIA 1+
[2023-09-08 07:50] LABS: TEAR DROP CELLS FEW
[2023-09-08 07:51] LABS: ELLIPTOCYTES FEW; ROULEAUX 1+; SCHISTOCYTES FEW
[2023-09-08] MEDS: metoprolol tartrate 1mg/ml inj IV ONE (09:41)
[2023-09-08 12:59] LABS: PRO BRAIN NATRIURETIC PEPTIDE 46 PG/ML (0-125)
[2023-09-09] VITALS (12 sets, daily range): BP systolic 114–152; BP diastolic 64–88; PULSE 110–152; RESP 14–20; TEMP 97.2–98.5; O2SAT 98–100
[2023-09-09 02:45] LABS: BASOPHILS # (AUTO) 0.1 X10'3 (0-0.2); BASOPHILS % (AUTO) 0.7 % (0-1); EOSINOPHILS # (AUTO) 0.3 X10'3 (0-0.9); EOSINOPHILS % (AUTO) 1.5 % (0-6); HEMATOCRIT 23.1 % (35.0-45.0); HEMOGLOBIN 7.3 g/dl (12.0-16.0); LYMPHOCYTES # (AUTO) 1.7 X10'3 (1.1-4.8); LYMPHOCYTES % (AUTO) 9.5 % (21-51); MEAN CORPUSCULAR HEMOGLOBIN 24.2 PG (27.0-31.0); MEAN CORPUSCULAR HGB CONC 31.6 g/dL (33.0-36.5); MEAN CORPUSCULAR VOLUME 76.5 FL (78-98); MEAN PLATELET VOLUME 7.9 FL (7.4-10.4); MONOCYTES # (AUTO) 1.5 X10'3 (0-0.9); MONOCYTES % (AUTO) 7.9 % (2-12); NEUTROPHILS # (AUTO) 14.8 X10'3 (1.8-7.7); NEUTROPHILS % (AUTO) 80.4 % (42-75); PLATELET COUNT 487 X10'3 (140-440); RED BLOOD COUNT 3.02 X10'6 (4.20-5.60); WHITE BLOOD COUNT 18.4 X10'3 (4.5-11.0)
[2023-09-09 03:03] LABS: URINE HCG NEGATIVE (NEG)
[2023-09-09 03:13] LABS: ALANINE AMINOTRANSFERASE 39 U/L (12-78); ALBUMIN 1.6 G/DL (3.4-5.0); ALBUMIN/GLOBULIN RATIO 0.3 (1.1-1.5); ALKALINE PHOSPHATASE 241 IU/L (46-116); ANION GAP 7 (8-16); ASPARTATE AMINO TRANSFERASE 32 U/L (10-37); BILIRUBIN,TOTAL 0.6 MG/DL (0.1-1.0); BLOOD UREA NITROGEN 9 MG/DL (7-18); BUN/CREATININE RATIO 23.7 (10.0-20.0); CALCIUM 8.7 MG/DL (8.5-10.1); CHLORIDE 100 MMOL/L (99-107); CREATININE 0.38 MG/DL (0.40-0.90); GLUCOSE 110 MG/DL (70-104); MAGNESIUM 1.8 MG/DL (1.5-2.4); PHOSPHORUS 3.6 MG/DL (2.3-4.5); POTASSIUM 3.9 MMOL/L (3.5-5.1); SODIUM 133 MMOL/L (135-145); TOTAL CARBON DIOXIDE 26.5 MMOL/L (24-32); TOTAL PROTEIN 7.1 G/DL (6.4-8.2); TRIGLYCERIDES 35 MG/DL (20-135); eCRCL 153 ML/MIN; eGFR > 90 ML/MIN
[2023-09-09 03:22] LABS: ANISOCYTOSIS 2+; MICROCYTOSIS 1+; PLATELET ESTIMATE INCREASED
[2023-09-09 03:25] LABS: ELLIPTOCYTES 1+
[2023-09-09 03:27] LABS: HYPOCHROMASIA 1+
[2023-09-09] MEDS ORDERED: iohexol 350MG/ML 100ml bottle IV ONE (10:28)
[2023-09-09] MEDS: HYDROmorphone 1 mg/ml syringe IV PRN (13:45)
[2023-09-09] MEDS: methylnaltrexone br 12mg/0.6ml inj***SubQ only SQ SCH (14:59)
[2023-09-09 17:57] LABS: HEMATOCRIT 27.5 % (35.0-45.0); HEMOGLOBIN 8.9 g/dl (12.0-16.0); MEAN CORPUSCULAR HEMOGLOBIN 25.6 PG (27.0-31.0); MEAN CORPUSCULAR HGB CONC 32.2 g/dL (33.0-36.5); MEAN CORPUSCULAR VOLUME 79.5 FL (78-98); MEAN PLATELET VOLUME 8.1 FL (7.4-10.4); PLATELET COUNT 504 X10'3 (140-440); RED BLOOD COUNT 3.47 X10'6 (4.20-5.60); RED CELL DISTRIBUTION WIDTH 20.7 % (11.5-14.5); WHITE BLOOD COUNT 22.3 X10'3 (4.5-11.0)
[2023-09-09] MEDS: ZINC/COPPER/MANGANESE/SELENIUM 1 ML, chromic chloride inj. 10 MCG in AA 5%/CALCIUM/LYTE... IV SCH (22:04)
[2023-09-10] VITALS (7 sets, daily range): BP systolic 108–142; BP diastolic 75–92; PULSE 18–133; RESP 15–24; TEMP 96.4–98; O2SAT 95–99
[2023-09-10 03:09] LABS: CHLORIDE 97 MMOL/L (99-107); POTASSIUM 3.9 MMOL/L (3.5-5.1); SODIUM 131 MMOL/L (135-145)
[2023-09-10 03:29] LABS: ALANINE AMINOTRANSFERASE 56 U/L (12-78); ALBUMIN 1.7 G/DL (3.4-5.0); ALBUMIN/GLOBULIN RATIO 0.3 (1.1-1.5); ALKALINE PHOSPHATASE 295 IU/L (46-116); ANION GAP 6 (8-16); ASPARTATE AMINO TRANSFERASE 41 U/L (10-37); BILIRUBIN,TOTAL 0.6 MG/DL (0.1-1.0); BLOOD UREA NITROGEN 10 MG/DL (7-18); BUN/CREATININE RATIO 23.3 (10.0-20.0); CALCIUM 8.5 MG/DL (8.5-10.1); CREATININE 0.43 MG/DL (0.40-0.90); GLUCOSE 112 MG/DL (70-104); MAGNESIUM 1.9 MG/DL (1.5-2.4); PHOSPHORUS 3.6 MG/DL (2.3-4.5); TOTAL CARBON DIOXIDE 27.8 MMOL/L (24-32); TOTAL PROTEIN 6.9 G/DL (6.4-8.2); eCRCL 137 ML/MIN; eGFR > 90 ML/MIN
[2023-09-10 08:11] LABS: ABSOLUTE RETICS # 96400 /CUMM (23000-93000); BASOPHILS # (AUTO) 0.1 X10'3 (0-0.2); BASOPHILS % (AUTO) 0.6 % (0-1); EOSINOPHILS # (AUTO) 0.2 X10'3 (0-0.9); EOSINOPHILS % (AUTO) 1.5 % (0-6); HEMATOCRIT 27.3 % (35.0-45.0); HEMOGLOBIN 8.8 g/dl (12.0-16.0); LYMPHOCYTES # (AUTO) 1.5 X10'3 (1.1-4.8); LYMPHOCYTES % (AUTO) 9.8 % (21-51); MEAN CORPUSCULAR HEMOGLOBIN 25.9 PG (27.0-31.0); MEAN CORPUSCULAR HGB CONC 32.2 g/dL (33.0-36.5); MEAN CORPUSCULAR VOLUME 80.5 FL (78-98); MEAN PLATELET VOLUME 7.9 FL (7.4-10.4); MONOCYTES % (AUTO) 6.6 % (2-12); NEUTROPHILS # (AUTO) 12.8 X10'3 (1.8-7.7); NEUTROPHILS % (AUTO) 81.5 % (42-75); PLATELET COUNT 472 X10'3 (140-440); RED BLOOD COUNT 3.39 X10'6 (4.20-5.60); RED CELL DISTRIBUTION WIDTH 21.5 % (11.5-14.5); RETICULOCYTE % (AUTO) 2.8 % (0.5-1.5); WHITE BLOOD COUNT 15.7 X10'3 (4.5-11.0)
[2023-09-10] MEDS: HYDROcodone/acetaminophen 5mg/325mg tablet PO PRN (10:01)
[2023-09-10] MEDS: HYDROcodone/acetaminophen 10/325mg tab PO PRN (12:08)
[2023-09-11] VITALS (8 sets, daily range): BP systolic 106–127; BP diastolic 73–88; PULSE 115–134; RESP 12–16; TEMP 97.2–98.9; O2SAT 98–100
[2023-09-11 03:09] LABS: BASOPHILS % (AUTO) 0.4 % (0-1); EOSINOPHILS # (AUTO) 0.3 X10'3 (0-0.9); EOSINOPHILS % (AUTO) 2.1 % (0-6); HEMATOCRIT 26.3 % (35.0-45.0); HEMOGLOBIN 8.4 g/dl (12.0-16.0); LYMPHOCYTES # (AUTO) 1.7 X10'3 (1.1-4.8); LYMPHOCYTES % (AUTO) 12.8 % (21-51); MEAN CORPUSCULAR HEMOGLOBIN 25.9 PG (27.0-31.0); MEAN CORPUSCULAR HGB CONC 32.1 g/dL (33.0-36.5); MEAN CORPUSCULAR VOLUME 80.7 FL (78-98); MONOCYTES # (AUTO) 0.9 X10'3 (0-0.9); NEUTROPHILS # (AUTO) 10.2 X10'3 (1.8-7.7); NEUTROPHILS % (AUTO) 77.7 % (42-75); PLATELET COUNT 458 X10'3 (140-440); RED BLOOD COUNT 3.26 X10'6 (4.20-5.60); RED CELL DISTRIBUTION WIDTH 21.9 % (11.5-14.5); WHITE BLOOD COUNT 13.2 X10'3 (4.5-11.0)
[2023-09-11 03:21] LABS: ALANINE AMINOTRANSFERASE 52 U/L (12-78); ALBUMIN 1.6 G/DL (3.4-5.0); ALBUMIN/GLOBULIN RATIO 0.3 (1.1-1.5); ALKALINE PHOSPHATASE 304 IU/L (46-116); ANION GAP 3 (8-16); ASPARTATE AMINO TRANSFERASE 34 U/L (10-37); BILIRUBIN,TOTAL 0.4 MG/DL (0.1-1.0); BLOOD UREA NITROGEN 10 MG/DL (7-18); BUN/CREATININE RATIO 25.6 (10.0-20.0); CALCIUM 8.8 MG/DL (8.5-10.1); CHLORIDE 100 MMOL/L (99-107); CREATININE 0.39 MG/DL (0.40-0.90); GLUCOSE 106 MG/DL (70-104); MAGNESIUM 1.8 MG/DL (1.5-2.4); PHOSPHORUS 3.9 MG/DL (2.3-4.5); POTASSIUM 3.5 MMOL/L (3.5-5.1); SODIUM 135 MMOL/L (135-145); TOTAL CARBON DIOXIDE 32.3 MMOL/L (24-32); TOTAL PROTEIN 7.1 G/DL (6.4-8.2); eCRCL 150 ML/MIN; eGFR > 90 ML/MIN
[2023-09-11 04:25] LABS: ANISOCYTOSIS 3+; PLATELET ESTIMATE INCREASED
[2023-09-11 04:27] LABS: HYPOCHROMASIA 1+; POLYCHROMASIA FEW
[2023-09-11 04:28] LABS: ELLIPTOCYTES FEW; TEAR DROP CELLS FEW
[2023-09-11] MEDS: HYDROmorphone 2mg tablet PO PRN (11:53)
[2023-09-11 14:52] LABS: ALBUMIN 1.7 G/DL (3.4-5.0); ANION GAP 4 (8-16); BILIRUBIN,TOTAL 0.4 MG/DL (0.1-1.0); BLOOD UREA NITROGEN 10 MG/DL (7-18); BUN/CREATININE RATIO 18.2 (10.0-20.0); CALCIUM 8.9 MG/DL (8.5-10.1); CHLORIDE 98 MMOL/L (99-107); CREATININE 0.55 MG/DL (0.40-0.90); SODIUM 132 MMOL/L (135-145); TOTAL CARBON DIOXIDE 29.7 MMOL/L (24-32); TOTAL PROTEIN 7.5 G/DL (6.4-8.2); eCRCL 102 ML/MIN; eGFR > 90 ML/MIN
[2023-09-11 14:53] LABS: ALANINE AMINOTRANSFERASE 59 U/L (12-78); ALBUMIN/GLOBULIN RATIO 0.3 (1.1-1.5); ALKALINE PHOSPHATASE 334 IU/L (46-116); ASPARTATE AMINO TRANSFERASE 43 U/L (10-37)
[2023-09-11 14:55] LABS: GLUCOSE 108 MG/DL (70-104); POTASSIUM 4.2 MMOL/L (3.5-5.1)
[2023-09-11] MEDS: HYDROcodone/acetaminophen 10/325mg tab PO SCH (15:19)
[2023-09-11] MEDS: lactose-reduced food (Ensure Enlive) - 237ml bottle PO SCH (18:30)
[2023-09-11 19:12] LABS: MAGNESIUM 1.7 MG/DL (1.5-2.4); PHOSPHORUS 3.9 MG/DL (2.3-4.5)
[2023-09-12] VITALS (7 sets, daily range): BP systolic 118–141; BP diastolic 81–89; PULSE 117–124; RESP 14–18; TEMP 98–98.2; O2SAT 98–99
[2023-09-12 04:45] LABS: BASOPHILS # (AUTO) 0.1 X10'3 (0-0.2); BASOPHILS % (AUTO) 0.5 % (0-1); EOSINOPHILS # (AUTO) 0.4 X10'3 (0-0.9); EOSINOPHILS % (AUTO) 3.2 % (0-6); HEMOGLOBIN 8.8 g/dl (12.0-16.0); LYMPHOCYTES # (AUTO) 1.9 X10'3 (1.1-4.8); LYMPHOCYTES % (AUTO) 16.4 % (21-51); MEAN CORPUSCULAR HEMOGLOBIN 25.6 PG (27.0-31.0); MEAN CORPUSCULAR HGB CONC 31.5 g/dL (33.0-36.5); MEAN CORPUSCULAR VOLUME 81.4 FL (78-98); MONOCYTES # (AUTO) 0.8 X10'3 (0-0.9); MONOCYTES % (AUTO) 6.7 % (2-12); NEUTROPHILS # (AUTO) 8.3 X10'3 (1.8-7.7); NEUTROPHILS % (AUTO) 73.2 % (42-75); PLATELET COUNT 504 X10'3 (140-440); RED BLOOD COUNT 3.44 X10'6 (4.20-5.60); RED CELL DISTRIBUTION WIDTH 22.5 % (11.5-14.5); WHITE BLOOD COUNT 11.4 X10'3 (4.5-11.0)
[2023-09-12 05:02] LABS: ALANINE AMINOTRANSFERASE 53 U/L (12-78); ALBUMIN 1.8 G/DL (3.4-5.0); ALBUMIN/GLOBULIN RATIO 0.3 (1.1-1.5); ALKALINE PHOSPHATASE 347 IU/L (46-116); ANION GAP 6 (8-16); ASPARTATE AMINO TRANSFERASE 38 U/L (10-37); BILIRUBIN,TOTAL 0.3 MG/DL (0.1-1.0); BLOOD UREA NITROGEN 8 MG/DL (7-18); CALCIUM 9.6 MG/DL (8.5-10.1); CHLORIDE 98 MMOL/L (99-107); CREATININE 0.47 MG/DL (0.40-0.90); GLUCOSE 85 MG/DL (70-104); MAGNESIUM 1.9 MG/DL (1.5-2.4); PHOSPHORUS 4.7 MG/DL (2.3-4.5); POTASSIUM 4.1 MMOL/L (3.5-5.1); PREALBUMIN 15.2 MG/DL (19-36); SODIUM 132 MMOL/L (135-145); TOTAL CARBON DIOXIDE 28.4 MMOL/L (24-32); TOTAL PROTEIN 7.6 G/DL (6.4-8.2); TRIGLYCERIDES 77 MG/DL (20-135); eCRCL 120 ML/MIN; eGFR > 90 ML/MIN
[2023-09-12] MEDS ORDERED: DOCU-148 PO (09:52)
[2023-09-12] MEDS ORDERED: FERR324T4 PO (09:52)
[2023-09-12] MEDS ORDERED: HYDR-3972 PO (13:37)
[2023-09-12] MEDS ORDERED: HYDR2TAB7 PO (13:37)
== END 2023-09-12 15:14 | disposition home health service (06) | DRG 710 ==
LOC: ER 18:37 → ED HOLD 22:22 → EDBEDREQ 08-28 05:12 → ORTHO 4S 08-28 07:55 → PCU 3S 09-07 02:30
PROVIDERS: ADMIT Internal Medicine Pulmonary Disease; ATTEND Internal Medicine
PROC: BW211ZZ Computerized Tomography (CT Scan) of Abdomen and Pelvis using Low Osmolar Contrast (ICD-10-PCS; 2023-08-27)
PROC: 0DNW0ZZ Release Peritoneum, Open Approach (ICD-10-PCS; 2023-09-03)
PROC: 0DNK0ZZ Release Ascending Colon, Open Approach (ICD-10-PCS; 2023-09-03)
PROC: 0DCE0ZZ Extirpation of Matter from Large Intestine, Open Approach (ICD-10-PCS; principal; 2023-09-03 14:57)
PROC: B32T1ZZ Computerized Tomography (CT Scan) of Left Pulmonary Artery using Low Osmolar Contrast (ICD-10-PCS; 2023-09-09)
PROC: B32S1ZZ Computerized Tomography (CT Scan) of Right Pulmonary Artery using Low Osmolar Contrast (ICD-10-PCS; 2023-09-09)
DX: A41.9 Sepsis, unspecified organism (principal); K56.50 Intestinal adhesions [bands], unspecified as to partial versus complete obstruction; C18.9 Malignant neoplasm of colon, unspecified; E87.1 Hypo-osmolality and hyponatremia; D64.9 Anemia, unspecified; E16.2 Hypoglycemia, unspecified; R00.0 Tachycardia, unspecified; R25.1 Tremor, unspecified; K46.9 Unspecified abdominal hernia without obstruction or gangrene; Z93.3 Colostomy status
CPT/HCPCS: 36415; 36430; 36569; 70450; 71045; 71275; 74018; 74176; 74177; 76942; 80048; 80053; 80076; 81001; 81025; 82948; 83605; 83690; 83735; 83880; 84100; 84132; 84134; 84145; 84478; 84484; 85007; 85008; 85025; 85027; 85045; 86885; 86900; 86901; 86920; 87040; 87081; 93005; 97110; 97116; 97161; 97530; 97535; 99285; A4314; A4333; A4338; A4340; A4615; A4618; A6258; A6449; A7000; C1751; C1758; C9290; G0378; J0131; J0692; J0694; J1100; J1170; J1650; J2060; J2175; J2212; J2250; J2270; J2405; J2543; J2704; J2710; J2720; J2916; J3010; J3360; J3480; J3490; J7030; J7040; J7042; J7060; J7120; P9016; Q9963; Q9967; Q9968

== ENCOUNTER 2023-09-14 18:45 | Inpatient (IN) | payer MEDICAID ==
[~2023-09-14] VITALS: Ht 157.5 cm; Wt 45.5 kg
[~2023-09-14 18:45] MED LIST changes: +DOCU-148 PO; +FERR324T4 PO; +HYDR2TAB7 PO; -IBUP-1985 PO; -PANT40TA54 PO
[2023-09-14] MEDS: normal saline 1000ML IV soln IVB ONE (19:20)
[2023-09-14] MEDS: ondansetron/PF 4mg/2ml inj IV ONE ×2 (19:20→20:52)
[2023-09-14 19:38] LABS: MEAN PLATELET VOLUME 7.8 FL (7.4-10.4); PLATELET COUNT 778 X10'3 (140-440); WHITE BLOOD COUNT 15.5 X10'3 (4.5-11.0)
[2023-09-14 19:40] LABS: BASOPHILS # (AUTO) 0.1 X10'3 (0-0.2); BASOPHILS % (AUTO) 0.5 % (0-1); EOSINOPHILS % (AUTO) 0.1 % (0-6); HEMATOCRIT 35.3 % (35.0-45.0); HEMOGLOBIN 11.7 g/dl (12.0-16.0); LYMPHOCYTES # (AUTO) 1.8 X10'3 (1.1-4.8); LYMPHOCYTES % (AUTO) 11.8 % (21-51); MEAN CORPUSCULAR HEMOGLOBIN 26.6 PG (27.0-31.0); MEAN CORPUSCULAR HGB CONC 33.1 g/dL (33.0-36.5); MEAN CORPUSCULAR VOLUME 80.4 FL (78-98); MONOCYTES # (AUTO) 0.7 X10'3 (0-0.9); MONOCYTES % (AUTO) 4.7 % (2-12); NEUTROPHILS # (AUTO) 12.9 X10'3 (1.8-7.7); NEUTROPHILS % (AUTO) 82.9 % (42-75); RED BLOOD COUNT 4.39 X10'6 (4.20-5.60); RED CELL DISTRIBUTION WIDTH 23.9 % (11.5-14.5)
[2023-09-14 20:08] LABS: ALANINE AMINOTRANSFERASE 31 U/L (12-78); ALBUMIN 2.4 G/DL (3.4-5.0); ALBUMIN/GLOBULIN RATIO 0.4 (1.1-1.5); ALKALINE PHOSPHATASE 341 IU/L (46-116); ANION GAP 9 (8-16); ASPARTATE AMINO TRANSFERASE 20 U/L (10-37); BILIRUBIN,TOTAL 0.4 MG/DL (0.1-1.0); BLOOD UREA NITROGEN 14 MG/DL (7-18); BUN/CREATININE RATIO 19.7 (10.0-20.0); CALCIUM 10.3 MG/DL (8.5-10.1); CHLORIDE 95 MMOL/L (99-107); CREATININE 0.71 MG/DL (0.40-0.90); GLUCOSE 114 MG/DL (70-104); LIPASE 65 U/L (16-77); MAGNESIUM 1.9 MG/DL (1.5-2.4); SODIUM 135 MMOL/L (135-145); TOTAL CARBON DIOXIDE 31.1 MMOL/L (24-32); TOTAL PROTEIN 8.8 G/DL (6.4-8.2); eCRCL 84 ML/MIN; eGFR > 90 ML/MIN
[2023-09-14 20:10] LABS: ANISOCYTOSIS 3+; PLATELET ESTIMATE INCREASED
[2023-09-14] MEDS ORDERED: iohexol 300mg/ml 100ml inj. ONE (20:10)
[2023-09-14 20:12] LABS: ELLIPTOCYTES FEW; STOMATOCYTES FEW
[2023-09-14] MEDS: POTASSIUM BICARB 20meq eff tab 20 MEQ TABLET.EFF PO STA (20:30)
[2023-09-14] MEDS: BUPIVAcaine 0.5% W/EPI /PF 10ml vial IJ STA (21:18)
[2023-09-14] MEDS ORDERED: CEPH250T PO (21:33)
[2023-09-14] MEDS ORDERED: acetaminophen 325mg tablet PO PRN (21:55)
[2023-09-14] MEDS: normal saline 1000ml 1,000 ML IV ONE (21:59)
[2023-09-14 23:13] LABS: BILIRUBIN,URINE NEGATIVE (Neg); CLARITY,URINE CLOUDY (Clear); COLOR,URINE YELLOW (Yellow); GLUCOSE, URINE NEGATIVE (Neg); KETONES,URINE NEGATIVE (Neg); LEUKOCYTE ESTERASE ,URINE NEGATIVE (Neg); NITRITES, URINE NEGATIVE (Neg); OCCULT BLOOD,URINE NEGATIVE (Neg); PH,URINE 7.5 (4.8-8.0); PROTEIN,URINE 30 mg/dl (Neg); UROBILINOGEN,URINE 0.2 E.U/dL (0.2-1.0)
[2023-09-14 23:15] LABS: URINE HCG NEGATIVE (NEG)
[2023-09-14 23:18] LABS: UA COLLECTION TYPE CLN CATCH MIDSTREAM
[2023-09-14 23:19] LABS: SQUAMOUS EPITHELIAL CELL,UR MANY /LPF (FEW)
[2023-09-14 23:22] LABS: RBC,URINE 0-2 /HPF (0-2)
[2023-09-14 23:23] LABS: AMORPHOUS PHOSPHATES 3+; BACTERIA,URINE 3+ /HPF (Neg)
[2023-09-15] VITALS (7 sets, daily range): BP systolic 105–136; BP diastolic 54–98; PULSE 93–105; RESP 15–20; TEMP 97.7–98.1; O2SAT 95–100
[2023-09-15] MEDS: normal saline 1000ml 1,000 ML IV SCH (00:30)
[2023-09-15] MEDS: potassium Cl 40MEQ/1/2NS 520ml 520 ML IV PRN (01:47)
[2023-09-15] MEDS ORDERED: ondansetron/PF 4mg/2ml inj IV PRN ×2 (03:05→03:10)
[2023-09-15] MEDS: morphine 2 MG/ML inj. syringe IV PRN (04:45)
[2023-09-15 06:10] LABS: BASOPHILS # (AUTO) 0.1 X10'3 (0-0.2); BASOPHILS % (AUTO) 0.5 % (0-1); EOSINOPHILS # (AUTO) 0.1 X10'3 (0-0.9); EOSINOPHILS % (AUTO) 0.7 % (0-6); HEMATOCRIT 27.6 % (35.0-45.0); LYMPHOCYTES # (AUTO) 2.2 X10'3 (1.1-4.8); LYMPHOCYTES % (AUTO) 17.4 % (21-51); MEAN CORPUSCULAR HEMOGLOBIN 26.3 PG (27.0-31.0); MEAN CORPUSCULAR HGB CONC 32.5 g/dL (33.0-36.5); MEAN PLATELET VOLUME 7.7 FL (7.4-10.4); MONOCYTES # (AUTO) 0.9 X10'3 (0-0.9); MONOCYTES % (AUTO) 7.1 % (2-12); NEUTROPHILS # (AUTO) 9.6 X10'3 (1.8-7.7); NEUTROPHILS % (AUTO) 74.3 % (42-75); PLATELET COUNT 577 X10'3 (140-440); RED BLOOD COUNT 3.41 X10'6 (4.20-5.60); RED CELL DISTRIBUTION WIDTH 23.8 % (11.5-14.5); WHITE BLOOD COUNT 12.9 X10'3 (4.5-11.0)
[2023-09-15 06:24] LABS: ANION GAP 8 (8-16); BLOOD UREA NITROGEN 11 MG/DL (7-18); CALCIUM 9.5 MG/DL (8.5-10.1); CHLORIDE 101 MMOL/L (99-107); CREATININE 0.55 MG/DL (0.40-0.90); GLUCOSE 82 MG/DL (70-104); MAGNESIUM 1.8 MG/DL (1.5-2.4); SODIUM 135 MMOL/L (135-145); TOTAL CARBON DIOXIDE 25.6 MMOL/L (24-32); eCRCL 108 ML/MIN; eGFR > 90 ML/MIN
[2023-09-15] MEDS: metroNIDAZOLE-Flagyl 500mg/NS 100 ML IV SCH (08:44)
[2023-09-15] MEDS ORDERED: HYDROmorphone 2mg tablet PO PRN (13:30)
[2023-09-15] MEDS ORDERED: HYDROcodone/acetaminophen 10/325mg tab PO PRN (14:00)
[2023-09-15] MEDS: docusate sod 100mg capsule PO SCH (19:12)
[2023-09-16] MEDS: diazepam inj 5 MG/ML inj. IV PRN (00:49)
[2023-09-16 04:04] VITALS: BP 105/67; PULSE 103; RESP 16; TEMP 98; O2SAT 98
[2023-09-16 06:00] VITALS: BP 128/87; PULSE 89; RESP 15; TEMP 98.5; O2SAT 97
[2023-09-16 07:18] LABS: BASOPHILS % (AUTO) 0.3 % (0-1); EOSINOPHILS # (AUTO) 0.1 X10'3 (0-0.9); EOSINOPHILS % (AUTO) 0.6 % (0-6); HEMATOCRIT 27.9 % (35.0-45.0); LYMPHOCYTES # (AUTO) 1.3 X10'3 (1.1-4.8); MEAN CORPUSCULAR HEMOGLOBIN 26.3 PG (27.0-31.0); MEAN CORPUSCULAR HGB CONC 32.2 g/dL (33.0-36.5); MEAN CORPUSCULAR VOLUME 81.6 FL (78-98); MEAN PLATELET VOLUME 7.9 FL (7.4-10.4); MONOCYTES # (AUTO) 0.8 X10'3 (0-0.9); MONOCYTES % (AUTO) 6.9 % (2-12); NEUTROPHILS # (AUTO) 8.8 X10'3 (1.8-7.7); NEUTROPHILS % (AUTO) 80.2 % (42-75); PLATELET COUNT 452 X10'3 (140-440); RED BLOOD COUNT 3.42 X10'6 (4.20-5.60); RED CELL DISTRIBUTION WIDTH 23.2 % (11.5-14.5); WHITE BLOOD COUNT 10.9 X10'3 (4.5-11.0)
[2023-09-16 07:31] LABS: ANION GAP 8 (8-16); BLOOD UREA NITROGEN 4 MG/DL (7-18); BUN/CREATININE RATIO 10.5 (10.0-20.0); CALCIUM 8.7 MG/DL (8.5-10.1); CHLORIDE 102 MMOL/L (99-107); CREATININE 0.38 MG/DL (0.40-0.90); GLUCOSE 90 MG/DL (70-104); MAGNESIUM 1.9 MG/DL (1.5-2.4); POTASSIUM 3.5 MMOL/L (3.5-5.1); SODIUM 133 MMOL/L (135-145); TOTAL CARBON DIOXIDE 23.2 MMOL/L (24-32); eCRCL 157 ML/MIN; eGFR > 90 ML/MIN
[2023-09-16 08:00] VITALS: RESP 15; O2SAT 97
[2023-09-16] MEDS ORDERED: ONDA4TAB12 PO (10:19)
== END 2023-09-16 11:00 | disposition home health service (06) | DRG 247 ==
LOC: ER 18:45 → ED HOLD 22:00 → PCU 3S 09-15 00:45
PROVIDERS: ADMIT Internal Medicine; ATTEND Internal Medicine
PROC: BW211ZZ Computerized Tomography (CT Scan) of Abdomen and Pelvis using Low Osmolar Contrast (ICD-10-PCS; principal; 2023-09-14)
DX: K56.7 Ileus, unspecified (principal); C79.9 Secondary malignant neoplasm of unspecified site; C18.9 Malignant neoplasm of colon, unspecified; E87.6 Hypokalemia; K59.00 Constipation, unspecified; E86.0 Dehydration; Z20.822 Contact with and (suspected) exposure to COVID-19; Z90.49 Acquired absence of other specified parts of digestive tract; Z93.3 Colostomy status
CPT/HCPCS: 36415; 74177; 80048; 80053; 81001; 81025; 83690; 83735; 84132; 85008; 85025; 87081; 93005; 96374; 96376; 99285; G0378; J2270; J2405; J3360; J3480; J3490; J7030; Q9967

== ENCOUNTER 2023-10-18 08:49 | Emergency (ER) | payer MEDICAID ==
[~2023-10-18] VITALS: Ht 157.5 cm; Wt 37.5 kg
[~2023-10-18 08:49] MED LIST changes: +ONDA4TAB12 PO
[2023-10-18 09:53] LABS: BASOPHILS # (AUTO) 0.1 X10'3 (0-0.2); BASOPHILS % (AUTO) 1.1 % (0-1); EOSINOPHILS # (AUTO) 0.1 X10'3 (0-0.9); EOSINOPHILS % (AUTO) 0.5 % (0-6); HEMATOCRIT 35.4 % (35.0-45.0); HEMOGLOBIN 11.5 g/dl (12.0-16.0); LYMPHOCYTES # (AUTO) 1.1 X10'3 (1.1-4.8); LYMPHOCYTES % (AUTO) 9.3 % (21-51); MEAN CORPUSCULAR HEMOGLOBIN 26.5 PG (27.0-31.0); MEAN CORPUSCULAR HGB CONC 32.5 g/dL (33.0-36.5); MEAN CORPUSCULAR VOLUME 81.5 FL (78-98); MEAN PLATELET VOLUME 7.3 FL (7.4-10.4); MONOCYTES # (AUTO) 1.1 X10'3 (0-0.9); MONOCYTES % (AUTO) 8.9 % (2-12); NEUTROPHILS # (AUTO) 9.7 X10'3 (1.8-7.7); NEUTROPHILS % (AUTO) 80.2 % (42-75); PLATELET COUNT 416 X10'3 (140-440); RED BLOOD COUNT 4.34 X10'6 (4.20-5.60); RED CELL DISTRIBUTION WIDTH 20.4 % (11.5-14.5); WHITE BLOOD COUNT 12.1 X10'3 (4.5-11.0)
[2023-10-18 10:00] LABS: ALBUMIN 2.7 G/DL (3.4-5.0); ANION GAP 8 (8-16); BLOOD UREA NITROGEN 6 MG/DL (7-18); BUN/CREATININE RATIO 10.2 (10.0-20.0); CALCIUM 9.3 MG/DL (8.5-10.1); CHLORIDE 99 MMOL/L (99-107); CREATININE 0.59 MG/DL (0.40-0.90); GLUCOSE 112 MG/DL (70-104); POTASSIUM 3.9 MMOL/L (3.5-5.1); SODIUM 134 MMOL/L (135-145); TOTAL CARBON DIOXIDE 26.6 MMOL/L (24-32); eCRCL 83 ML/MIN; eGFR > 90 ML/MIN
[2023-10-18 10:23] LABS: ANISOCYTOSIS 3+; PLATELET ESTIMATE NORMAL; TOTAL CELLS COUNTED 100
[2023-10-18 10:30] LABS: BURR CELLS FEW
[2023-10-18 10:51] VITALS: BP 135/98; PULSE 130; RESP 16; TEMP 98; O2SAT 97
== END 2023-10-18 10:40 | disposition home or self-care (01) ==
LOC: ER 08:49
DX: R79.89 Other specified abnormal findings of blood chemistry (principal); Z79.899 Other long term (current) drug therapy
CPT/HCPCS: 36415; 71045; 80048; 83605; 84145; 85007; 85025; 87040; 93005; 99285

== ENCOUNTER 2023-11-13 00:31 | Emergency (ER) | payer MEDICAID ==
[~2023-11-13] VITALS: Ht 157.5 cm; Wt 38.6 kg
[~2023-11-13 00:31] MED LIST changes: -ACET-1008 PO; -DOCU-148 PO; -HYDR-3972 PO; -HYDR2TAB7 PO; -ONDA-104; +ONDA-243 PO; -ONDA4TAB12 PO; -PROC10TA97
[2023-11-13] MEDS: normal saline 1000ml 1,000 ML IV ONE ×2 (01:04→04:34)
[2023-11-13 01:28] LABS: BASOPHILS # (AUTO) 0.1 X10'3 (0-0.2); BASOPHILS % (AUTO) 0.9 % (0-1); EOSINOPHILS # (AUTO) 0.1 X10'3 (0-0.9); EOSINOPHILS % (AUTO) 0.6 % (0-6); HEMATOCRIT 38.1 % (35.0-45.0); HEMOGLOBIN 12.2 g/dl (12.0-16.0); LYMPHOCYTES # (AUTO) 2.4 X10'3 (1.1-4.8); MEAN CORPUSCULAR HEMOGLOBIN 27.1 PG (27.0-31.0); MEAN CORPUSCULAR HGB CONC 32.1 g/dL (33.0-36.5); MEAN CORPUSCULAR VOLUME 84.5 FL (78-98); MEAN PLATELET VOLUME 7.4 FL (7.4-10.4); MONOCYTES # (AUTO) 0.7 X10'3 (0-0.9); MONOCYTES % (AUTO) 6.2 % (2-12); NEUTROPHILS # (AUTO) 7.8 X10'3 (1.8-7.7); NEUTROPHILS % (AUTO) 70.3 % (42-75); PLATELET COUNT 392 X10'3 (140-440); RED BLOOD COUNT 4.51 X10'6 (4.20-5.60); RED CELL DISTRIBUTION WIDTH 20.2 % (11.5-14.5); WHITE BLOOD COUNT 11.1 X10'3 (4.5-11.0)
[2023-11-13 01:43] LABS: ALANINE AMINOTRANSFERASE 21 U/L (12-78); ALBUMIN 2.8 G/DL (3.4-5.0); ALBUMIN/GLOBULIN RATIO 0.6 (1.1-1.5); ALKALINE PHOSPHATASE 161 IU/L (46-116); ANION GAP 4 (8-16); ASPARTATE AMINO TRANSFERASE 17 U/L (10-37); BILIRUBIN,TOTAL 0.3 MG/DL (0.1-1.0); BLOOD UREA NITROGEN 12 MG/DL (7-18); CALCIUM 9.5 MG/DL (8.5-10.1); CHLORIDE 102 MMOL/L (99-107); CREATININE 0.75 MG/DL (0.40-0.90); GLUCOSE 106 MG/DL (70-104); LIPASE 26 U/L (16-77); POTASSIUM 3.8 MMOL/L (3.5-5.1); SODIUM 136 MMOL/L (135-145); TOTAL CARBON DIOXIDE 29.9 MMOL/L (24-32); TOTAL PROTEIN 7.3 G/DL (6.4-8.2); eCRCL 68 ML/MIN; eGFR > 90 ML/MIN
[2023-11-13] MEDS ORDERED: iohexol 300mg/ml 100ml inj. ONE (01:48)
[2023-11-13 06:11] LABS: BILIRUBIN,URINE NEGATIVE (Neg); CLARITY,URINE SLIGHTLY CLOUDY (Clear); COLOR,URINE YELLOW (Yellow); GLUCOSE, URINE NEGATIVE (Neg); KETONES,URINE NEGATIVE (Neg); LEUKOCYTE ESTERASE ,URINE NEGATIVE (Neg); NITRITES, URINE NEGATIVE (Neg); OCCULT BLOOD,URINE NEGATIVE (Neg); PH,URINE 7.5 (4.8-8.0); PROTEIN,URINE NEGATIVE (Neg); UROBILINOGEN,URINE 0.2 E.U/dL (0.2-1.0)
[2023-11-13 06:36] LABS: UA COLLECTION TYPE NON-SPECIFIED
[2023-11-13 06:38] LABS: AMORPHOUS PHOSPHATES 2+
[2023-11-13 06:39] LABS: RBC,URINE 0-2 /HPF (0-2); SQUAMOUS EPITHELIAL CELL,UR FEW /LPF (FEW); WBC,URINE 0-4 /HPF (0-4)
[2023-11-13 06:40] LABS: BACTERIA,URINE FEW /HPF (Neg)
[2023-11-13 07:35] VITALS: BP 122/84; PULSE 95; RESP 16; TEMP 97.8; O2SAT 97
== END 2023-11-13 07:20 | disposition home or self-care (01) ==
LOC: ER 00:32
DX: E86.0 Dehydration (principal); Z20.822 Contact with and (suspected) exposure to COVID-19; Z79.899 Other long term (current) drug therapy; Z85.038 Personal history of other malignant neoplasm of large intestine; Z98.890 Other specified postprocedural states
CPT/HCPCS: 36415; 74177; 80053; 81001; 83605; 83690; 85025; 87811; 96360; 96361; 99285; J7030; Q9967; A4353

== ENCOUNTER 2024-05-01 06:22 | Inpatient (IN) | payer MEDICAID ==
[~2024-05-01] VITALS: Ht 157.5 cm; Wt 45.6 kg
[2024-05-01 06:51] LABS: BILIRUBIN,URINE NEGATIVE (Neg); CLARITY,URINE CLEAR (Clear); COLOR,URINE YELLOW (Yellow); GLUCOSE, URINE NEGATIVE (Neg); KETONES,URINE TRACE mg/dl (Neg); LEUKOCYTE ESTERASE ,URINE NEGATIVE (Neg); NITRITES, URINE NEGATIVE (Neg); OCCULT BLOOD,URINE TRACE-INTACT (Neg); PH,URINE 5.5 (4.8-8.0); PROTEIN,URINE TRACE mg/dl (Neg); UROBILINOGEN,URINE 0.2 E.U/dL (0.2-1.0)
[2024-05-01 06:53] LABS: URINE HCG NEGATIVE (NEG)
[2024-05-01 06:54] LABS: UA COLLECTION TYPE CLN CATCH MIDSTREAM
[2024-05-01 06:57] LABS: BACTERIA,URINE FEW /HPF (Neg); MUCUS STRANDS FEW /LPF (Neg); RBC,URINE 0-2 /HPF (0-2); SQUAMOUS EPITHELIAL CELL,UR MODERATE /LPF (FEW); WBC,URINE 0-4 /HPF (0-4)
[2024-05-01] MEDS: ondansetron/PF 4mg/2ml inj IV ONE (07:15)
[2024-05-01] MEDS: HYDROmorphone 1 mg/ml syringe IV ONE ×4 (07:15→12:05)
[2024-05-01] MEDS: normal saline 1000ml 1,000 ML IV ONE (07:15)
[2024-05-01 08:21] LABS: BASOPHILS % (AUTO) 0.4 % (0-1); EOSINOPHILS % (AUTO) 0.2 % (0-6); HEMATOCRIT 41.7 % (35.0-45.0); HEMOGLOBIN 14.2 g/dl (12.0-16.0); LYMPHOCYTES # (AUTO) 2.2 X10'3 (1.1-4.8); LYMPHOCYTES % (AUTO) 17.3 % (21-51); MEAN CORPUSCULAR HEMOGLOBIN 30.8 PG (27.0-31.0); MEAN CORPUSCULAR HGB CONC 33.9 g/dL (33.0-36.5); MEAN CORPUSCULAR VOLUME 90.9 FL (78-98); MEAN PLATELET VOLUME 7.5 FL (7.4-10.4); MONOCYTES # (AUTO) 0.9 X10'3 (0-0.9); MONOCYTES % (AUTO) 6.9 % (2-12); NEUTROPHILS # (AUTO) 9.7 X10'3 (1.8-7.7); NEUTROPHILS % (AUTO) 75.2 % (42-75); PLATELET COUNT 381 X10'3 (140-440); RED BLOOD COUNT 4.59 X10'6 (4.20-5.60); RED CELL DISTRIBUTION WIDTH 17.4 % (11.5-14.5); WHITE BLOOD COUNT 12.9 X10'3 (4.5-11.0)
[2024-05-01 08:38] LABS: ALANINE AMINOTRANSFERASE 29 U/L (12-78); ALBUMIN 3.7 G/DL (3.4-5.0); ALBUMIN/GLOBULIN RATIO 0.9 (1.1-1.5); ALKALINE PHOSPHATASE 121 IU/L (46-116); ANION GAP 16 (8-16); ASPARTATE AMINO TRANSFERASE 31 U/L (10-37); BILIRUBIN,TOTAL 0.7 MG/DL (0.1-1.0); BLOOD UREA NITROGEN 10 MG/DL (7-18); BUN/CREATININE RATIO 11.9 (10.0-20.0); CALCIUM 9.4 MG/DL (8.5-10.1); CHLORIDE 102 MMOL/L (99-107); CREATININE 0.84 MG/DL (0.40-0.90); GLUCOSE 126 MG/DL (70-104); LIPASE 33 U/L (16-77); POTASSIUM 3.1 MMOL/L (3.5-5.1); SODIUM 138 MMOL/L (135-145); TOTAL CARBON DIOXIDE 20.2 MMOL/L (24-32); TOTAL PROTEIN 7.7 G/DL (6.4-8.2); eCRCL 71 ML/MIN; eGFR 80 ML/MIN
[2024-05-01] MEDS ORDERED: acetaminophen 325mg tablet PO PRN (12:00)
[2024-05-01] MEDS ORDERED: HYDROmorphone/PF 0.2 MG/ML SYRINGE IV PRN (12:00)
[2024-05-01] MEDS ORDERED: magnesium sulf-water 4G/100mL 100 ML IV PRN (12:00)
[2024-05-01] MEDS ORDERED: potassium Cl 40MEQ/1/2NS 520ml 520 ML IV PRN (12:00)
[2024-05-01] MEDS ORDERED: bisacodyl 10mg suppository rectal RC PRN (12:00)
[2024-05-01] MEDS ORDERED: magnesium hydroxide 30ml (MOM) UD suspension PO PRN (12:00)
[2024-05-01] MEDS ORDERED: magnesium Cl slow-release 64mg tablet PO PRN (12:00)
[2024-05-01] MEDS ORDERED: magnesium sulf-water 2g/50mL 50 ML IV PRN (12:00)
[2024-05-01] MEDS ORDERED: potassium Cl 20 mEq SR tablet PO PRN (12:00)
[2024-05-01] MEDS ORDERED: HYDROmorphone 1mg tablet (1/2 of 2mg tablet) PO PRN (12:05)
[2024-05-01] MEDS: normal saline 1000ml 1,000 ML IV SCH (12:08)
[2024-05-01] MEDS: CefTRIAXone 2gm/D5W 50ml BAG 50 ML IV ONE (13:29)
[2024-05-01] MEDS: ondansetron/PF 4mg/2ml inj IV PRN (16:48)
[2024-05-01] MEDS: acetaminophen 325mg tablet PO SCH (16:49)
[2024-05-01] MEDS: HYDROmorphone inj. 0.5 MG/0.5 ML DISP.SYRIN IV PRN (16:50)
[2024-05-01 17:45] VITALS: BP 128/92; PULSE 88; RESP 18; TEMP 97.9; O2SAT 98
[2024-05-01 18:00] VITALS: BP 144/97; PULSE 86; RESP 16; TEMP 99.4; O2SAT 100
[2024-05-01] MEDS ORDERED: GADOTERATE MEGLUMINE 7.5 MMOL/15 ML VIAL IV ONE (18:33)
[2024-05-01] MEDS: heparin, porcine 5000 units/ml vial SQ SCH (20:41)
[2024-05-01] MEDS: potassium Cl 20 mEq SR tablet PO PRN (20:41)
[2024-05-01 22:00] VITALS: BP 127/77; PULSE 66; RESP 14; TEMP 97.8; O2SAT 95
[2024-05-02 05:56] LABS: BASOPHILS % (AUTO) 0.3 % (0-1); EOSINOPHILS # (AUTO) 0.1 X10'3 (0-0.9); EOSINOPHILS % (AUTO) 0.6 % (0-6); HEMATOCRIT 40.6 % (35.0-45.0); HEMOGLOBIN 13.6 g/dl (12.0-16.0); LYMPHOCYTES # (AUTO) 1.6 X10'3 (1.1-4.8); MEAN CORPUSCULAR HEMOGLOBIN 30.8 PG (27.0-31.0); MEAN CORPUSCULAR HGB CONC 33.4 g/dL (33.0-36.5); MEAN CORPUSCULAR VOLUME 92.2 FL (78-98); MEAN PLATELET VOLUME 7.6 FL (7.4-10.4); MONOCYTES # (AUTO) 0.6 X10'3 (0-0.9); MONOCYTES % (AUTO) 5.5 % (2-12); NEUTROPHILS # (AUTO) 8.5 X10'3 (1.8-7.7); NEUTROPHILS % (AUTO) 78.6 % (42-75); PLATELET COUNT 312 X10'3 (140-440); RED CELL DISTRIBUTION WIDTH 17.4 % (11.5-14.5); WHITE BLOOD COUNT 10.8 X10'3 (4.5-11.0)
[2024-05-02 06:00] VITALS: BP 131/95; PULSE 110; RESP 14; TEMP 98.5; O2SAT 98
[2024-05-02 06:20] LABS: ALANINE AMINOTRANSFERASE 28 U/L (12-78); ALBUMIN 2.9 G/DL (3.4-5.0); ALBUMIN/GLOBULIN RATIO 0.8 (1.1-1.5); ALKALINE PHOSPHATASE 124 IU/L (46-116); ANION GAP 9 (8-16); ASPARTATE AMINO TRANSFERASE 31 U/L (10-37); BILIRUBIN,TOTAL 0.8 MG/DL (0.1-1.0); BLOOD UREA NITROGEN 9 MG/DL (7-18); CALCIUM 8.6 MG/DL (8.5-10.1); CHLORIDE 104 MMOL/L (99-107); CREATININE 0.53 MG/DL (0.40-0.90); GLUCOSE 63 MG/DL (70-104); POTASSIUM 4.4 MMOL/L (3.5-5.1); SODIUM 136 MMOL/L (135-145); TOTAL CARBON DIOXIDE 22.6 MMOL/L (24-32); TOTAL PROTEIN 6.5 G/DL (6.4-8.2); eCRCL 112 ML/MIN; eGFR > 90 ML/MIN
[2024-05-02] MEDS: HYDROmorphone inj. 0.5 MG/0.5 ML DISP.SYRIN IV ONE (07:06)
[2024-05-02] MEDS: pantoprazole 40mg Tablet.DR PO SCH (07:30)
[2024-05-02] MEDS ORDERED: guaiFENesin ER 600mg tablet PO SCH (08:45)
[2024-05-02] MEDS ORDERED: PRED5TAB PO (09:49)
[2024-05-02] MEDS ORDERED: IVAB5TAB PO (09:49)
[2024-05-02 10:00] VITALS: BP 141/92; PULSE 109; RESP 16; TEMP 98.7; O2SAT 99
[2024-05-02] MEDS: morphine 2 MG/ML inj. syringe IV PRN (13:07)
[2024-05-02] MEDS ORDERED: bisacodyl 5mg tablet.DR PO PRN (16:15)
[2024-05-02 18:00] VITALS: BP 117/68; PULSE 111; RESP 18; TEMP 99; O2SAT 96
[2024-05-02 20:00] VITALS: RESP 16; O2SAT 98
[2024-05-02] MEDS: IVABRADINE HCL 5 MG PO SCH (20:00)
[2024-05-02] MEDS: apixaban 5mg tablet PO SCH (20:29)
[2024-05-02 22:00] VITALS: BP 114/73; PULSE 114; RESP 16; TEMP 97.6; O2SAT 98
[2024-05-02] MEDS ORDERED: HYDROmorphone 1 mg/ml syringe IV PRN (23:10)
[2024-05-02] MEDS: dextrose 5%-normal saline 1,000 ML IV SCH (23:23)
[2024-05-03] MEDS: HYDROmorphone inj. 0.5 MG/0.5 ML DISP.SYRIN IV PRN (00:28)
[2024-05-03 06:12] LABS: BASOPHILS % (AUTO) 0.3 % (0-1); EOSINOPHILS # (AUTO) 0.1 X10'3 (0-0.9); EOSINOPHILS % (AUTO) 0.9 % (0-6); HEMATOCRIT 37.9 % (35.0-45.0); LYMPHOCYTES # (AUTO) 1.5 X10'3 (1.1-4.8); LYMPHOCYTES % (AUTO) 15.5 % (21-51); MEAN CORPUSCULAR HEMOGLOBIN 31.5 PG (27.0-31.0); MEAN CORPUSCULAR HGB CONC 34.2 g/dL (33.0-36.5); MEAN CORPUSCULAR VOLUME 92.1 FL (78-98); MEAN PLATELET VOLUME 7.5 FL (7.4-10.4); MONOCYTES # (AUTO) 0.9 X10'3 (0-0.9); MONOCYTES % (AUTO) 8.7 % (2-12); NEUTROPHILS # (AUTO) 7.4 X10'3 (1.8-7.7); NEUTROPHILS % (AUTO) 74.6 % (42-75); PLATELET COUNT 285 X10'3 (140-440); RED BLOOD COUNT 4.11 X10'6 (4.20-5.60); RED CELL DISTRIBUTION WIDTH 17.4 % (11.5-14.5); WHITE BLOOD COUNT 9.9 X10'3 (4.5-11.0)
[2024-05-03 06:37] LABS: ALANINE AMINOTRANSFERASE 23 U/L (12-78); ALBUMIN 2.9 G/DL (3.4-5.0); ALBUMIN/GLOBULIN RATIO 0.8 (1.1-1.5); ALKALINE PHOSPHATASE 124 IU/L (46-116); ANION GAP 9 (8-16); ASPARTATE AMINO TRANSFERASE 21 U/L (10-37); BILIRUBIN,TOTAL 0.6 MG/DL (0.1-1.0); BLOOD UREA NITROGEN 7 MG/DL (7-18); BUN/CREATININE RATIO 15.2 (10.0-20.0); CALCIUM 9.1 MG/DL (8.5-10.1); CHLORIDE 104 MMOL/L (99-107); CREATININE 0.46 MG/DL (0.40-0.90); GLUCOSE 97 MG/DL (70-104); POTASSIUM 3.9 MMOL/L (3.5-5.1); SODIUM 139 MMOL/L (135-145); TOTAL CARBON DIOXIDE 25.6 MMOL/L (24-32); TOTAL PROTEIN 6.6 G/DL (6.4-8.2); eCRCL 129 ML/MIN; eGFR > 90 ML/MIN
[2024-05-03 06:53] VITALS: BP 105/69; PULSE 93; RESP 16; TEMP 98.3; O2SAT 98
[2024-05-03] MEDS: ferrous gluconate 324mg tablet PO SCH (08:29)
[2024-05-03] MEDS: predniSONE 5mg tablet PO SCH (08:29)
[2024-05-03 08:33] VITALS: RESP 20
[2024-05-03 11:00] VITALS: BP 101/76; PULSE 99; RESP 16; TEMP 98.9; O2SAT 99
[2024-05-03] MEDS ORDERED: ACET-1008 PO ×2 (12:33→12:34)
[2024-05-03] MEDS ORDERED: ACET-75 PO ×2 (12:41→14:51)
[2024-05-03] MEDS ORDERED: CYCL-1 PO (12:45)
[2024-05-03 14:42] VITALS: RESP 16
== END 2024-05-03 16:55 | disposition home or self-care (01) | DRG 347 ==
LOC: ER 06:23 → SUR 3N 12:04
PROVIDERS: ADMIT Internal Medicine; ATTEND Internal Medicine
DX: M54.6 Pain in thoracic spine (principal); C78.7 Secondary malignant neoplasm of liver and intrahepatic bile duct; Z85.038 Personal history of other malignant neoplasm of large intestine
CPT/HCPCS: 36415; 71046; 72157; 72158; 74176; 80053; 81001; 81025; 82948; 83605; 83690; 84145; 85025; 87040; 97110; 97161; 97530; 99285; A9575; G0378; J0696; J1171; J1644; J2270; J2405; J7030; J7042; J7512

== ENCOUNTER 2024-09-13 07:14 | Emergency (ER) | payer MEDICAID ==
[~2024-09-13] VITALS: Ht 157.5 cm; Wt 43.0 kg
[~2024-09-13 07:14] MED LIST changes: +ACET-1008 PO; +ACET-75 PO; +CYCL-1 PO; +IVAB5TAB PO; +PRED5TAB PO
[2024-09-13 07:18] VITALS: TEMP 97.6
--- NOTE | 2024-09-13 09:01 | Physician Documentation ---
History of Present Illness ~ Chief Complaint: Back Pain Stated Complaint: BACK PAIN Time Seen by MD: 08:51 Primary Medical Doctor: [facility] 29-year-old female presents to the ED with a complaint of chronic back pain. She states she has a multitude of medications that she takes to help alleviate pain including oxycodone hydromorphone cyclobenzaprine.. Denies any acute injury.. Denies any red flag symptoms including numbness tingling incontinence or fever Medication Reconciliation Allergies: Coded Allergies: walnut (Unverified Allergy, Unknown, 05/02/24) prochlorperazine (Unverified Adverse Reaction, Mild, tremors, 05/01/24) Scheduled Acetaminophen (Tylenol), 650 MG PO Q6H PRN PAIN, (Reported) Acetaminophen (Tylenol), 650 MG PO Q6H PRN PAIN, (Reported) Acetaminophen (Tylenol), 650 MG PO Q6H PRN PAIN, (Reported) Apixaban (Eliquis), 1 TAB PO BID, (Reported) Ferrous Sulfate (Ferrous Sulfate), 1 TAB PO DAILY Ivabradine HCl (Corlanor), 1 TAB PO Q12H, (Reported) Prednisone* (Prednisone*), 2 TAB PO DAILY, (Reported) Scheduled PRN Acetaminophen (Acetaminophen), 1 TAB PO Q8H PRN for pain Cyclobenzaprine* (Cyclobenzaprine*), 1 TABLET PO Q8H PRN for muscle spasms ONDANSETRON ODT 4mg tablet (Ondansetron Odt), 1 TAB PO Q6H PRN PRN for nausea/vomiting Past Medical History Past Medical History: *CARDIOVASCULAR*, *CANCER*, Colon Cancer Other Past Surgical History: endoscopy, colonoscopy Patient History: Patient reports no known family medical history. Alcohol Use: None Drug Use: none Lives In: Home Review of Systems All Other Systems at this time: Reviewed and Negative ROS As stated above in the HPI, otherwise all systems are reviewed and negative. Physical Exam Physical Exam Vital Signs: Temperature: 97.6, Source: Oral, Heart Rate: 102, Respiratory Rate: 18, BP: 116/88, Pulse Oximetry: 96, Weight: 43.000 Oxygen Flow Rate: 0 Physical Exam General: Alert, no apparent distress. Back: Tender to the left lumbar region via palpation. Respiratory: Lungs clear, no respiratory distress. Neurologic: Oriented x4. Psychiatric: Normal mood and affect. Skin: Normal color, warm and dry. No edema, no ecchymosis. Progress Results/Orders Results/Orders Completed Orders - JOSR CID NP Ketorolac Trometh 30mg/Ml Vial (Toradol (09/13/24 08:55) Medications Received in ER Medications (Trade) Dose Ordered Sig/Andra Route PRN Reason Start Time Stop Time Status Last Admin Dose Admin (Toradol inj. 30mg/ml) 30 mg ONCE ONCE IM 09/13/24 08:55 09/13/24 08:58 DC 09/13/24 09:11 30 MG Vital Signs 09/13/24 09/13/24 09/13/24 07:18 09:11 09:13 Temp 97.6 Pulse 102 95 Resp 18 16 18 B/P (MAP) 116/88 114/87 Pulse Ox 96 100 O2 Flow Rate 0 Medical Decision Making Findings Patient was treated with Toradol in-house. Patient advised to follow up in the outpatient setting for further evaluation. She is clearly being managed for pain in the outpatient setting. I do not see that it is imperative to increase or change narcotic prescription at this time. She has no red flag symptoms in his cleared for discharge Differential Dx:Considerations: Include: AAA, Aortic dissection, , Appendicitis, Bowel obstruction, Cholelithiasis, Cholangitis, DJD, Ectopic , Fracture, Hepatitis, HNP, Musculoskeletal pain, Pancreatitis, Pyelonephritis, Strain, Urinary obstruction, Urolithiasis, Ovarian torsion, Other Departure Disposition: 01 HOME / SELF CARE / HOMELESS Impression: Primary Impression: Back problem Condition: Stable Discharge Instructions: Chronic Back Pain Additional Instructions: Follow up with your doctor in the outpatient setting. Return for any worsening symptoms Referrals: NO PRIMARY CARE PROVIDER (PCP) Signature Scribe Signature: U Attestation: The note accurately reflects work and decisions made by me.Josr Cid - LORY 09/13/24 15:25 JOSR CID NP September 13, 2024 09:01
[2024-09-13] MEDS: ketorolac trometh 30MG/ML vial 30 MG/ML VIAL IM ONE (09:11)
[2024-09-13 09:13] VITALS: BP 114/87; PULSE 95; RESP 18; O2SAT 100
== END 2024-09-13 09:14 | disposition home or self-care (01) ==
LOC: ER 07:15
DX: M54.9 Dorsalgia, unspecified (principal); Z85.038 Personal history of other malignant neoplasm of large intestine; Z88.8 Allergy status to other drugs, medicaments and biological substances
CPT/HCPCS: 96372; 99283; J1885

== ENCOUNTER 2024-10-24 01:59 | Emergency (ER) | payer MEDICAID ==
[~2024-10-24] VITALS: Ht 157.5 cm; Wt 43.2 kg
--- NOTE | 2024-10-24 03:17 | Physician Documentation ---
History of Present Illness ~ Chief Complaint: Back Pain Stated Complaint: BACK PAIN Time Seen by MD: 03:14 OK to notify your PCP?: Yes Primary Medical Doctor: [facility] Source: patient, RN/, RN notes reviewed, old records Mode of Arrival: POV Exam Limitations: no limitations HPI 29 year old female with a history of stage four colon cancer seen in bed 19 presents to the emergency department for complaints of back pain. She states that her pain feels like a muscle spasm. She states its located in her mid back and radiates to her ribs making it difficult to breathe and that it does not radiate down her legs. She states that she is prescribed pain medication by her oncologist due to her cancer and she is doing chemo. She was prescribe a muscle relaxant but does not take it out of fear that it will interact with her other medications. Patient denies any other associated symptoms at this time. Patient denies any other alleviating or exacerbating factors. Medication Reconciliation Allergies: Coded Allergies: walnut (Unverified Allergy, Unknown, 10/24/24) prochlorperazine (Unverified Adverse Reaction, Mild, tremors, 10/24/24) Scheduled Acetaminophen (Tylenol), 650 MG PO Q6H PRN PAIN, (Reported) Acetaminophen (Tylenol), 650 MG PO Q6H PRN PAIN, (Reported) Acetaminophen (Tylenol), 650 MG PO Q6H PRN PAIN, (Reported) Apixaban (Eliquis), 1 TAB PO BID, (Reported) Ferrous Sulfate (Ferrous Sulfate), 1 TAB PO DAILY Ivabradine HCl (Corlanor), 1 TAB PO Q12H, (Reported) Prednisone* (Prednisone*), 2 TAB PO DAILY, (Reported) Scheduled PRN Acetaminophen (Acetaminophen), 1 TAB PO Q8H PRN for pain Cyclobenzaprine* (Cyclobenzaprine*), 1 TABLET PO Q8H PRN for muscle spasms ONDANSETRON ODT 4mg tablet (Ondansetron Odt), 1 TAB PO Q6H PRN PRN for nausea/vomiting Past Medical History Past Medical History: *CARDIOVASCULAR*, *CANCER*, Colon Cancer Other Past Surgical History: endoscopy, colonoscopy Last Menstrual Period: Oct 17, 2024 Patient History: Patient reports no known family medical history. Alcohol Use: None Drug Use: none Lives In: Home Review of Systems All Other Systems at this time: Reviewed and Negative ROS As stated above in the HPI, otherwise all systems are reviewed and negative. Physical Exam Physical Exam Vital Signs: RN Vital Signs have been reviewed: Yes, Temperature: 98.0, Heart Rate: 101, Respiratory Rate: 20, BP: 136/84, Pulse Oximetry: 96, Weight: 43.180 Pulse Oximetry Reflects: adequate oxygenation Physical Exam General: The patient is writhing in pain, she is thin, frail, and in distress. Skin: Dows, warm and dry with no rashes. HEENT: Head was normocephalic and atraumatic. Eyes - pupils equal, round, reactive to light and accommodation. Extraocular movements were intact. Conjunctivae were nonicteric. Ears - bilateral tympanic membranes were normal. The mouth and oropharynx were clear with moist mucous membranes. There were no pharyngeal exudates or erythema. Neck: Supple and nontender. There was no jugular venous distention, lymphadenopathy, thyromegaly or masses. Chest: Clear to auscultation bilaterally without wheezes, rales or rhonchi. No accessory muscle use. No dullness to percussion. Heart: Rate regular and rhythmic. S1, S2. No murmurs. Palpation of the chest wall was normal. No rubs or thrills. Abdomen: Soft, nontender and nondistended. Positive bowel sounds. No guarding or rebound. No hepatosplenomegaly or palpable masses. Extremities: No cyanosis, clubbing or edema. The patient moves all extremities. Pulses were equal and symmetric. Neurologic: Cranial nerves II-XII were intact. Sensation was intact to light touch throughout. Motor strength was 5/5 in all four extremities. Deep tendon reflexes were intact in both upper and lower extremities. Psychologic: The patient was oriented to person, place and time. The patient demonstrated appropriate judgement and insight. Progress Results/Orders Results/Orders Medications Received in ER Medications (Trade) Dose Ordered Sig/Andra Route PRN Reason Start Time Stop Time Status Last Admin Dose Admin (Valium tablet) 10 mg ONCE ONCE PO 10/24/24 03:25 10/24/24 03:26 DC 10/24/24 03:36 10 MG (Dilaudid inj.) 1 mg ONCE ONCE IM 10/24/24 03:25 10/24/24 03:26 DC 10/24/24 03:36 1 MG (Kenalog-40 inj) 40 mg ONCE ONCE IM 10/24/24 03:25 10/24/24 03:26 DC 10/24/24 03:36 40 MG Vital Signs 10/24/24 10/24/24 10/24/24 10/24/24 02:00 03:36 05:25 05:26 Temp 98.0 Pulse 101 91 Resp 20 22 16 16 B/P (MAP) 136/84 164/108 (126) Pulse Ox 96 99 Re-Evaluation Re-Evaluation : Re-Evaluation Time: 05:36 Re-Evaluation: Improved Progress Still having some back pain at this time but it has greatly improved. EKG/XRAY/CT/US/VASC/MRI Bone/Soft Tissue X-Ray (Spine) : Additional Comment INDICATION: thorasic pain history of colon cancerVERY LIMITED STUDY DUE TO PT IN PAIN TECHNIQUE: 4 views of the thoracic spine were obtained. COMPARISON: MR MRI THORACIC SPINE on DOS: 05/01/24 FINDINGS: There is no evidence of fracture, subluxation and/or dislocation. The alignment is anatomical. The paravertebral soft tissues were unremarkable. Right mediPort with tip overlying the cavoatrial junction. Incompletely visualized common bile duct stent within the right upper quadrant. IMPRESSION: 1. Of the visualized spine, there is no evidence for fracture or subluxation. Electronically Signed by:DAX WILCOX MD Date & Time: 10/24/24 0511 Departure Time of Disposition: 05:35 Disposition: 01 HOME / SELF CARE / HOMELESS Impression: Primary Impression: Acute on chronic back pain Additional Impression: Cancer Condition: Stable Discharge Instructions: Chronic Back Pain Referrals: NO PRIMARY CARE PROVIDER (PCP) Signature Scribe Signature: Scribed for Vasiliy Dorado MD by Ramos Manzanares . 10/24/24 04:30 Attestation: The note accurately reflects work and decisions made by me.Vasiliy Dorado MD 10/24/24 03:17 VASILIY DORADO MD Oct 24, 2024 03:17 RAMOS FUNG Oct 24, 2024 04:30
[2024-10-24] MEDS: triamcinolone acetonide 40mg/ml inj IM ONE (03:36)
[2024-10-24] MEDS: HYDROmorphone 1 mg/ml syringe IM ONE (03:36)
[2024-10-24] MEDS: diazepam 5mg tablet PO ONE (03:36)
--- NOTE | 2024-10-24 05:14 | RADIOLOGY REPORT ---
INDICATION: thorasic pain history of colon cancerVERY LIMITED STUDY DUE TO PT IN PAIN TECHNIQUE: 4 views of the thoracic spine were obtained. COMPARISON: MR MRI THORACIC SPINE on DOS: 05/01/24 FINDINGS: There is no evidence of fracture, subluxation and/or dislocation. The alignment is anatomical. The paravertebral soft tissues were unremarkable. Right mediPort with tip overlying the cavoatrial junction. Incompletely visualized common bile duct s tent within the right upper quadrant. IMPRESSION: 1. Of the visualized spine, there is no evidence for fracture or subluxation.
[2024-10-24] MEDS ORDERED: DIAZ5TAB22 PO (05:40)
[2024-10-24 06:03] VITALS: BP 126/80; PULSE 74; RESP 16; TEMP 98.1; O2SAT 99
== END 2024-10-24 06:05 | disposition home or self-care (01) ==
LOC: ER 02:00
DX: G89.29 Other chronic pain (principal); M54.9 Dorsalgia, unspecified; Z85.038 Personal history of other malignant neoplasm of large intestine; Z88.8 Allergy status to other drugs, medicaments and biological substances
CPT/HCPCS: 72070; 96372; 99284; J1171; J3301

== ENCOUNTER 2025-01-15 07:28 | Inpatient (IN) | payer MEDICAID ==
[~2025-01-15] VITALS: Ht 157.5 cm; Wt 40.3 kg
--- NOTE | 2025-01-15 08:07 | Physician Documentation ---
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 Patient has her chemotherapy pump running at this time. She took 4 mg of Dilaudid orally prior to coming here and this has not relieved her pain. Medication Reconciliation Allergies: Coded Allergies: walnut (Unverified Allergy, Unknown, 10/24/24) prochlorperazine (Unverified Adverse Reaction, Mild, tremors, 10/24/24) Scheduled Acetaminophen (Tylenol), 650 MG PO Q6H PRN PAIN, (Reported) Acetaminophen (Tylenol), 650 MG PO Q6H PRN PAIN, (Reported) Acetaminophen (Tylenol), 650 MG PO Q6H PRN PAIN, (Reported) Apixaban (Eliquis), 1 TAB PO BID, (Reported) Ferrous Sulfate (Ferrous Sulfate), 1 TAB PO DAILY Ivabradine HCl (Corlanor), 1 TAB PO Q12H, (Reported) Prednisone* (Prednisone*), 2 TAB PO DAILY, (Reported) Scheduled PRN Acetaminophen (Acetaminophen), 1 TAB PO Q8H PRN for pain Cyclobenzaprine* (Cyclobenzaprine*), 1 TABLET PO Q8H PRN for muscle spasms ONDANSETRON ODT 4mg tablet (Ondansetron Odt), 1 TAB PO Q6H PRN PRN for nausea/vomiting Past Medical History Past Medical History: *CARDIOVASCULAR*, *CANCER*, Colon Cancer Other Past Surgical History: endoscopy, colonoscopy Smoking: Non-Smoker Alcohol Use: None Drug Use: none Lives In: Home Review of Systems ROS Constitutional: Denies chills, fatigue, fever, weight gain or weight loss. HEENT: Denies hearing loss, sinus pressure or visual changes. Respiratory: Denies cough, shortness of breath or wheezing. Cardiovascular: Denies chest pain, pain while walking (claudication), edema or palpitations. Gastrointestinal: Nausea without vomiting Genitourinary: Denies painful urination (dysuria), excessive amount of urine (polyuria) or urinary frequency. Metabolic/Endocrine: Denies cold intolerance, heat intolerance, excessive thirst (polydipsia) or excessive hunger (polyphagia). Neurological: Denies dizziness, extremity numbness, extremity weakness, headaches, seizures or tremors. Psychiatric: Denies anxiety or depression. Integumentary: Denies breast discharge, breast lump, hives, mole change(s), rash or skin lesion. Musculoskeletal: Upper back pain Hematologic: Denies easily bleeding, easily bruises, lymphedema or issues with blood clots. Immunologic: Denies food allergies or seasonal allergies. Physical Exam Physical Exam Vital Signs: Temperature: 97.9, Source: Temporal, Heart Rate: 81, Respiratory Rate: 18, BP: 140/93, Pulse Oximetry: 100, Weight: 40.300 Oxygen Flow Rate: 0 Physical Exam Physical Exam Vitals and nursing note reviewed. Constitutional: General: Patient is awake, alert, oriented x 4 in severe upper thoracic pain. Speech is clear and lucid. Appearance: Patient complaining of severe upper thoracic pain. HENT: Head: Normocephalic and atraumatic. Mouth/Throat: Mouth: Mucous membranes are moist. Pharynx: Oropharynx is clear. Eyes: General: No scleral icterus. Extraocular Movements: Extraocular movements intact. Pupils: Pupils are equal, round, and reactive to light. Neck: Supple, no Kernig or Brudzinski sign. Cardiovascular: Rate and Rhythm: Normal rate and regular rhythm. Heart sounds: No murmur heard. Pulmonary: Effort: No respiratory distress. Breath sounds: No wheezing, rhonchi or rales. Abdominal: General: There is no distension. Colostomy in place. Palpations: There is no fluid wave, hepatomegaly or mass. Tenderness: There is no abdominal tenderness. There is no guarding. Musculoskeletal: General: No swelling or deformity. Skin: Coloration: Skin is not jaundiced. Findings: No erythema or rash. Neurological: Mental Status: Patient is alert. Progress Results/Orders Results/Orders Orders - JEAN CARLOS BECKER MD Covid19 Binax Poc Result Entry (01/15/25 08:10) Cta Chest Pe (01/15/25 10:26) Page Hospitalist (01/15/25 11:59) Completed Orders - JEAN CARLOS BECKER MD Cbc/Diff (01/15/25 08:10) CMP (01/15/25 08:10) MG (01/15/25 08:10) Procalcitonin (01/15/25 08:10) Lipase (01/15/25 08:10) LA (01/15/25 08:10) Hs Troponin I W Calculations (01/15/25 08:10) Hcg Serum Qt (01/15/25 08:10) Pt Inr (01/15/25 08:10) Morphine 4mg/Ml Inj. (Morphine Inj.) (01/15/25 08:10) Ondansetron Inj. (Zofran 4mg/2ml Vial) (01/15/25 08:10) Normal Saline 1000ml (0.9% Sodium Chlori (01/15/25 08:15) Man Diff (01/15/25 08:43) Cta Chest Pe (01/15/25 10:26) Ketamine 10mg/Ml 20ml Inj (Ketamine 10mg (01/15/25 09:15) Ketamine 10mg/Ml 20ml Inj (Ketamine 10mg (01/15/25 09:25) Ketamine 10mg/Ml 20ml Inj (Ketamine 10mg (01/15/25 10:00) Iohexol 350mg/Ml 100ml (Omnipaque 350mg/ (01/15/25 10:12) Lactic,2hr (01/15/25 10:20) Ua W/Microscopic, Cult If Ind (01/15/25 10:17) Morphine 4mg/Ml Inj. (Morphine Inj.) (01/15/25 11:35) Cyclobenzaprine Tablet (Flexeril Tablet) (01/15/25 11:45) Medications Received in ER Medications (Trade) Dose Ordered Sig/Andra Route PRN Reason Start Time Stop Time Status Last Admin Dose Admin (morphine inj.) 4 mg ONCE ONCE IV 01/15/25 08:10 01/15/25 08:13 DC 01/15/25 08:51 4 MG (Zofran 4mg/2ml vial) 4 mg ONCE ONCE IV 01/15/25 08:10 01/15/25 08:13 DC 01/15/25 08:50 4 MG Sodium Chloride 1,000 ml @ 1,000 mls/hr ONCE ONCE IV 01/15/25 08:15 01/15/25 09:14 DC 01/15/25 08:50 1,000 MLS/HR (ketamine 10mg/ ml 20ml inj) 14 mg ONCE ONCE IV 01/15/25 09:25 01/15/25 09:26 DC 01/15/25 09:29 14 MG (ketamine 10mg/ ml 20ml inj) 20 mg ONCE ONCE IV 01/15/25 10:00 01/15/25 10:02 DC 01/15/25 10:17 20 MG (morphine inj.) 4 mg ONCE ONCE IV 01/15/25 11:35 01/15/25 11:36 DC 01/15/25 11:41 4 MG (Flexeril tablet) 10 mg ONCE ONCE PO 01/15/25 11:45 01/15/25 11:46 DC 01/15/25 11:50 10 MG Vital Signs 01/15/25 01/15/25 01/15/25 01/15/25 07:42 08:06 08:51 08:55 Temp 97.9 Pulse 81 82 71 Resp 18 10 15 16 B/P (MAP) 140/93 136/77 (96) 138/95 (109) Pulse Ox 100 95 98 O2 Flow Rate 0 01/15/25 01/15/25 01/15/25 01/15/25 09:29 09:31 09:39 10:17 Pulse 90 69 Resp 12 30 19 15 B/P (MAP) 130/90 (103) 130/90 (103) Pulse Ox 100 100 01/15/25 01/15/25 11:41 11:41 Pulse 83 Resp 13 17 B/P (MAP) 137/98 (111) Pulse Ox 100 Laboratory Tests Test 01/15/25 08:43 01/15/25 08:58 01/15/25 09:39 01/15/25 10:17 White Blood Count 1.9 L Red Blood Count 3.98 L Hemoglobin 10.8 L Hematocrit 33.5 L Mean Corpuscular Volume 84.1 Mean Corpuscular Hemoglobin 27.2 Mean Corpuscular Hemoglobin Concent 32.3 L Red Cell Distribution Width 19.1 H Platelet Count 253 Mean Platelet Volume 7.5 Neutrophils (%) (Auto) 52.2 Lymphocytes (%) (Auto) 39.6 Monocytes (%) (Auto) 7.2 Eosinophils (%) (Auto) 0.6 Basophils (%) (Auto) 0.4 Neutrophils # (Auto) 1.0 L Lymphocytes # (Auto) 0.8 L Monocytes # (Auto) 0.1 Eosinophils # (Auto) 0.0 Basophils # (Auto) 0.0 CBC Comment Differential Total Cells Counted 100 Neutrophils % (Manual) 53.0 Lymphocytes % (Manual) 39.0 Monocytes % (Manual) 7.0 Eosinophils % (Manual) 1.0 Platelet Estimate Normal Red Blood Cell Morphology Perf Basophilic Stippling Anisocytosis 2+ Tear Drop Cells Sodium Level 137 Potassium Level 3.4 L Chloride Level 103 Carbon Dioxide Level 23.6 L Anion Gap 10 Blood Urea Nitrogen 14 Creatinine 0.54 Estimated GFR/1.73 m2 > 90 BUN/Creatinine Ratio 25.9 H Glucose Level 98 Lactic Acid Level 2.1 H Calcium Level 8.8 Magnesium Level 2.0 Total Bilirubin 0.3 Aspartate Amino Transf (AST/SGOT) 83 H Alanine Aminotransferase (ALT/SGPT) 79 H Alkaline Phosphatase 159 H Troponin I High Sensitivity 6 Total Protein 6.9 Albumin 2.7 L Globulin 4.2 Albumin/Globulin Ratio 0.6 L Lipase 22 Procalcitonin 0.07 HCG Beta Subunit < 1.0 Chemistry Comments SARS-CoV-2 Antigen (Rapid) Negative Prothrombin Time 10.4 INR International Normalized Ratio 1.0 Coagulation Comments Urine Specimen Description Urinal Urine Color Yellow Urine Clarity Clear Urine pH 6.0 Urine Specific [place] 1.010 Urine Protein Negative Urine Glucose (UA) Negative Urine Ketones Negative Urine Occult Blood Moderate H Urine Nitrite Negative Urine Bilirubin Negative Urine Urobilinogen 0.2 Urine Leukocyte Esterase Negative Urine RBC 10-20 Urine WBC 0-4 Urine Squamous Epithelial Cells Moderate Urine Bacteria None seen Urine Mucus Few Urine Culture Indicated Not ind Volume Urine Centrifuged 10 ml Urine Comment Test 01/15/25 11:25 Lactic Acid Level 3.2 H Medical Decision Making Findings This unfortunate 29-year-old female with invasive adenocarcinoma of the colon metastases to the liver and lung status post partial colonic resection with colostomy presents with intractable upper back pain. CTA of the chest is negative for PE. I have been treating her with morphine and ketamine. She will require admission for further treatment. Departure Disposition: ADMITTED INPATIENT Impression: Primary Impression: Intractable back pain Condition: Fair Referrals: NO PRIMARY CARE PROVIDER (PCP) Signature Scribe Signature: . Attestation: . JEAN CARLOS BECKER MD Jan 15, 2025 08:07
[2025-01-15] MEDS: normal saline 1000ml 1,000 ML IV ONE ×3 (08:50→14:27)
[2025-01-15] MEDS: ondansetron/PF 4mg/2ml inj IV ONE (08:50)
[2025-01-15] MEDS: morphine 4 MG/ML inj SYRINge IV ONE ×2 (08:51→11:41)
[2025-01-15 08:55] LABS: MEAN PLATELET VOLUME 7.5 FL (7.4-10.4); RED CELL DISTRIBUTION WIDTH 19.1 % (11.5-14.5)
[2025-01-15] MEDS ORDERED: ketamine 10mg/ml 20ml inj 0 MG in normal saline 100ml IV soln 100 ML IV ONE (09:15)
[2025-01-15 09:16] LABS: CREATININE 0.54 MG/DL (0.40-0.90); TOTAL CARBON DIOXIDE 23.6 MMOL/L (24-32); eCRCL 97 ML/MIN; eGFR > 90 ML/MIN
[2025-01-15] MEDS: ketamine 10mg/ml 20ml inj vial IV ONE ×2 (09:29→10:17)
[2025-01-15 09:51] LABS: EOSINOPHILS % (MANUAL) 1.0 % (0-6); LYMPHOCYTES % (MANUAL) 39.0 % (21-51); MONOCYTES % (MANUAL) 7.0 % (2-12); NEUTROPHILS % (MANUAL) 53.0 % (42-75); PLATELET ESTIMATE NORMAL
[2025-01-15 09:59] LABS: INR 1.0 INR
[2025-01-15 10:29] LABS: LEUKOCYTE ESTERASE ,URINE NEGATIVE (Neg); NITRITES, URINE NEGATIVE (Neg); OCCULT BLOOD,URINE MODERATE (Neg)
[2025-01-15 10:39] LABS: UA COLLECTION TYPE URINAL
[2025-01-15 10:40] LABS: MUCUS STRANDS FEW /LPF (Neg); SQUAMOUS EPITHELIAL CELL,UR MODERATE /LPF (FEW)
--- NOTE | 2025-01-15 11:24 | RADIOLOGY REPORT ---
EXAM: CT CTA CHEST PE W/ IV CONTRAST HISTORY: Upper thoracic pain COMPARISON: CT CTA CHEST PE on DOS: 09/09/23, upper images of CT scan of the abdomen dated 11/13/2023, chest x-ray dated 05/01/2024. TECHNIQUE: Helical CT images of the chest were performed with 100 mL omnipaque 350 IV contrast using pulmonary CTA protocol. Sagittal and coronal reformatted images and 3D MIP images were obtained. This CT exam was performed using 1 or more of the following dose reduction techniques: Automated exposure control, adjustment of the mA and/or kv according to patient size, or the use of iterative reconstruction techniques. Radiation Dose: Chest: CTDI volume is 4.98 mGy. Dose-length product is 187.77 mGy*cm. FINDINGS: No pulmonary arterial filling defects are identified. The lungs are hyperexpanded. There is mild central peribronchial thickening. There is a 10 mm mixed solid and ground-glass nodule in the right lower lobe adjacent to the posterior pleura (image 40, series 3). There is a left lower lobe 8 mm noncalcified pulmonary nodule (image 54, series 3). There is a 4 mm left lower lobe noncalcified pulmonary nodule (image 50, series 2) immediately adjacent to a 10 mm cavitary lesion (image 52, series 2). There is 2.2 cm cavitary mass in the left lower lobe (image 45, series 3). There is a 13 mm cavitary nodule in the right lower lobe (images 50 4-57, series 3). There is a right lower lobe 7 mm noncalcified pulmonary nodule (image 50, series 3). There is a lobulated mass in the right lower lobe centrally measuring 2.8 cm axially (image 43, series 3). There is 6.5 mm right upper lobe ground-glass nodule (image 30, series 2). No pneumothorax, consolidative infiltrates, pleural effusions, or pulmonary edema are identified. No suspicious mediastinal or axillary adenopathy. The heart is not enlarged. No thoracic aortic aneurysm or dissection. There is a right chest Port-A-Cath with its tip at the SVC -RA junction. There are multiple metastatic lesions in the right lobe of the liver. There is a common bile duct stent, not fully imaged here. IMPRESSION: 1. No evidence of pulmonary embolism. 2. Multiple bilateral noncalcified pulmonary nodules, masses, and cavitary lesions as detailed above. This appearance may be due to metastatic neoplasm and/or septic embolism. As there is extensive tumor infiltration throughout the right lobe of the liver, these findings are presumed to represent metastatic neoplasm. 3. Pulmonary hyperexpansion and mild reactive airways disease. 4. Postoperative changes of right chest port-A-Cath and CBD stent.
[2025-01-15] MEDS ORDERED: HYDROcodone/acetaminophen 5mg/325mg tablet PO PRN (12:20)
[2025-01-15] MEDS ORDERED: potassium Cl 20 mEq SR tablet PO PRN (12:20)
[2025-01-15] MEDS ORDERED: HYDROmorphone inj. 0.5 MG/0.5 ML DISP.SYRIN IV PRN ×2 (12:20→15:00)
[2025-01-15] MEDS ORDERED: magnesium hydroxide 30ml (MOM) UD suspension PO PRN (12:20)
[2025-01-15] MEDS ORDERED: magnesium sulf-water 4G/100mL 100 ML IV PRN (12:20)
[2025-01-15] MEDS ORDERED: ondansetron 4mg rapidly disintigrating tab PO PRN (12:20)
[2025-01-15] MEDS ORDERED: magnesium sulf-water 2g/50mL 50 ML IV PRN (12:20)
[2025-01-15] MEDS ORDERED: potassium Cl 40MEQ/1/2NS 520ml 520 ML IV PRN (12:20)
[2025-01-15] MEDS ORDERED: mag hydrox/Alum hydrox/simeth 30ml oral suspension PO PRN (12:20)
[2025-01-15] MEDS: HYDROcodone/acetaminophen 10/325mg tab PO PRN (13:38)
[2025-01-15] MEDS: normal saline 1000ml 1,000 ML IV SCH (14:41)
--- NOTE | 2025-01-15 15:06 | HISTORY AND PHYSICAL ---
History & Physical Providers to ~ History of Present Illness Reason for Admit\Complaint: Intractable back pain, metastatic cancer, immunocompromise, on chemo History of Present Illness Leda Rosenbaum is a 29-year-old female with a past medical history significant for chronic back pain, colon cancer with metastasis s/p colectomy in 2023 currently on chemotherapy with pump who presented to the ED with chief complaint of intractable upper medial paraspinal back pain which did not alleviate with home Dilaudid. Patient denies prior SC/CAD, CVA, cardiac arrhythmia, DVT/PE, or GIB. Patient denies chest pain, palpitations, shortness of breath, abdominal pain, n/v/d, fever, chills, dysuria. Patient is to be admitted for further workups and treatment. Allergies: Coded Allergies: walnut (Unverified Allergy, Unknown, 10/24/24) prochlorperazine (Unverified Adverse Reaction, Mild, tremors, 10/24/24) Home Medications Home Medications Active Acetaminophen 500 Mg Tablet 1 Tab PO Q8H PRN 15 Days Cyclobenzaprine* (Cyclobenzaprine HCl) 10 Mg Tablet 1 Tablet PO Q8H PRN 10 Days Ondansetron Odt (Ondansetron HCl) 4 Mg Tab.rapdis 1 Tab PO Q6H PRN PRN 30 Days Ferrous Sulfate 324 Mg (65 Mg Iron) Tablet.dr 1 Tab PO DAILY 30 Days Take 1 tablet every alternate day Reported Tylenol (Acetaminophen) 325 Mg Tablet 650 Mg PO Q6H PRN PAIN 10 Days Tylenol (Acetaminophen) 325 Mg Tablet 650 Mg PO Q6H PRN PAIN 10 Days Tylenol (Acetaminophen) 325 Mg Tablet 650 Mg PO Q6H PRN PAIN 10 Days Corlanor (Ivabradine HCl) 5 Mg Tablet 1 Tab PO Q12H 30 Days Prednisone* (Prednisone) 5 Mg Tablet 2 Tab PO DAILY Eliquis (Apixaban) 5 Mg Tablet 1 Tab PO BID Past Medical History Past Medical History Colon cancer with metastasis to lungs s/p colectomy, on chemotherapy Chronic back pain Past Surgical History Surgical History Comment Colectomy (2023) Family History Family History: Patient reports no known family medical history. Past Social History Social History Comment Alcohol: Denies Tobacco: Denies Illicit drug use: Denies Living situation: Lives at home with spouse ROS ROS Other than positives in HPI, all 14 review of systems are negative Exam Vitals: Vital Signs Date Time Temp Pulse Resp B/P (MAP) Pulse Ox O2 Delivery O2 Flow Rate FiO2 01/15/25 14:44 68 16 144/91 (108) 100 01/15/25 13:30 0 01/15/25 07:42 97.9 General: Generalized weakness, A&Ox 3, in acute distress HEENT: Normocephalic, PERRLA Neck: Supple, trachea midline, no JVD Chest: Clear to auscultation bilaterally Cardiovascular: RRR, S1&S2 Abdomen: Soft and nontender, colostomy in LLQ abdomen Extremities: No cyanosis/clubbing/or edema Central Nervous System: CN II-XII intact, no focal deficits Musculoskeletal: No paraspinal muscle tenderness, no muscle spasm Skin: Warm and intact Diagnostic Data Last Recorded Lab Results: 01/15/25 0843 01/15/25 0843 Diagnostic Data: Laboratory Tests Test 01/15/25 09:39 Prothrombin Time 10.4 SECONDS (9.0-12.0) INR International Normalized Ratio 1.0 INR Coagulation Comments Additional Plan Assessment & Plan Intractable back pain Dehydration Colon cancer with lung metastasis s/p colectomy, on chemotherapy (oncologist Dr. Martinez) Immunocompromise status Lung metastasis Liver metastasis Malnutrition, severe FTT -UA negative UTI, neg ketouria, lactic acid 2.1-3.2 -IVF, supportive care, neutropenic precaution DVT/VTE prophylaxis: Heparin Code status: Full Code I spent a total of 35 minutes discussing Advanced Care Planning measures with the patient. Advance care planning: Discussed with patient the importance of advance care planning in case of emergent situation. We discussed various resuscitative measures/ ACP with the patient at the time of admission. Patient voiced understanding and patient has decided on a full code status. Date of Service: Jan 15, 2025 Billing Provider: RODRIGO RAJPUT Common Visit Codes: 85007-[id number] INP/OBS CARE (HIGH) Secondary Visit Codes: 59874-[id number] CARE PLAN 30 MINUTES RODRIGO RAJPUT Jan 15, 2025 15:06
[2025-01-15] MEDS: HYDROmorphone/PF 0.2 MG/ML SYRINGE IV PRN (17:49)
[2025-01-15 17:51] VITALS: BP 134/87; PULSE 73; RESP 16; TEMP 97.9; O2SAT 100
[2025-01-15] MEDS: JUVEN Shake w/Arg/Glut/Ca2+Bmb (Juven 19.3gm) pkt 240ml PO SCH (19:05)
[2025-01-15] MEDS: docusate sod 100mg capsule PO SCH (19:20)
[2025-01-15] MEDS: heparin, porcine 5000 units/ml vial SQ SCH (19:20)
[2025-01-15] MEDS: ondansetron/PF 4mg/2ml inj IV PRN (19:21)
[2025-01-15] MEDS: potassium Cl 20 mEq SR tablet PO PRN (19:47)
[2025-01-15] MEDS ORDERED: heparin, porcine 5000 units/ml vial SQ SCH (20:00)
[2025-01-15] MEDS ORDERED: FENT1PAT8 TOP (20:07)
[2025-01-15] MEDS ORDERED: FENT1PAT5 TOP (20:07)
[2025-01-15] MEDS: K and/or MAG REPLACEMENT MC SCH (20:50)
[2025-01-15] MEDS ORDERED: CETI10TA15 PO (22:33)
[2025-01-15] MEDS ORDERED: LACT-373 PO (22:33)
[2025-01-16] MEDS ORDERED: non-formulary drug (Acetaminophen 1 TAB) PO PRN (00:10)
[2025-01-16] MEDS ORDERED: ondansetron 4mg rapidly disintigrating tab PO PRN (00:10)
[2025-01-16] MEDS: ibuprofen tablet 400 MG TABLET PO SCH (02:00)
[2025-01-16 06:00] VITALS: BP 123/96; PULSE 69; RESP 14; TEMP 98.7; O2SAT 99
[2025-01-16 06:48] LABS: MEAN PLATELET VOLUME 7.9 FL (7.4-10.4); RED CELL DISTRIBUTION WIDTH 19.3 % (11.5-14.5)
[2025-01-16 07:07] LABS: CREATININE 0.45 MG/DL (0.40-0.90); TOTAL CARBON DIOXIDE 26.2 MMOL/L (24-32); eCRCL 116 ML/MIN; eGFR > 90 ML/MIN
[2025-01-16 07:39] LABS: BANDS% (MANUAL) 2.0 % (0-10); LYMPHOCYTES % (MANUAL) 40.0 % (21-51); MONOCYTES % (MANUAL) 6.0 % (2-12); NEUTROPHILS % (MANUAL) 52.0 % (42-75); PLATELET ESTIMATE NORMAL
[2025-01-16] MEDS: lactulose 20gm/30ml cup PO SCH (07:55)
[2025-01-16] MEDS: fentaNYL 12 MCG/hour patch.TD72 TD SCH (07:57)
[2025-01-16] MEDS: fentaNYL 25MCG/hour patch.TD72 TD SCH (07:58)
[2025-01-16] MEDS ORDERED: FERROUS SULFATE PO SCH (08:00)
[2025-01-16] MEDS: IVABRADINE HCL 5 MG PO SCH (08:00)
[2025-01-16 10:00] VITALS: BP 120/89; PULSE 78; RESP 16; TEMP 98.7; O2SAT 99
--- NOTE | 2025-01-16 10:51 | DISCHARGE SUMMARY ---
Discharge Summary Providers to CC ~ Discharge Summary Admission Diagnosis: lactic acidosis, immunocompromised Hospital Course DATE OF ADMISSION: 01/15/25 DATE OF DISCHARGE: 01/16/25 Discharge Diagnosis\Comment: Intractable back pain Dehydration Colon cancer with lung metastasis s/p colectomy, on chemotherapy (oncologist Dr. Martinez) Immunocompromise status Lung metastasis Liver metastasis Malnutrition, severe FTT Operations\Procedures: None Consultants: None Complications: None Condition on DC: Stable Continued Medications: Acetaminophen (Tylenol) 325 Mg Tablet 650 MG PO Q6H PRN PAIN for 10 Days, #40 TAB Apixaban (Eliquis) 5 Mg Tablet 1 TAB PO BID Cetirizine HCl (Cetirizine HCl) 10 Mg Tablet 1 TAB PO DAILY Cyclobenzaprine* (Cyclobenzaprine*) 10 Mg Tablet 1 TABLET PO Q8H PRN for muscle spasms for 10 Days, #30 TABLET Fentanyl (Fentanyl) 12 Mcg/Hour Patch.td72 1 PATCH TOP Q72H Fentanyl (Fentanyl) 25 Mcg/Hour Patch.td72 1 PATCH TOP Q72H Ferrous Sulfate (Ferrous Sulfate) 324 Mg (65 Mg Iron) Tablet.dr 1 TAB PO DAILY for 30 Days, #30 TAB 0 Refills Take 1 tablet every alternate day Ivabradine HCl (Corlanor) 5 Mg Tablet 1 TAB PO Q12H for 30 Days, #60 TAB 0 Refills Lactulose (Lactulose) 10 Gram/15 Ml Solution 30 ML PO BID ONDANSETRON ODT 4mg tablet (Ondansetron Odt) 4 Mg Tab.rapdis 1 TAB PO Q6H PRN PRN for nausea/vomiting for 30 Days, #30 TAB 0 Refills Prednisone* (Prednisone*) 5 Mg Tablet 2 TAB PO DAILY, TAB Discontinued Medications: Acetaminophen (Tylenol) 325 Mg Tablet 650 MG PO Q6H PRN PAIN for 10 Days, #40 TAB Acetaminophen (Tylenol) 325 Mg Tablet 650 MG PO Q6H PRN PAIN for 10 Days, TAB Acetaminophen (Acetaminophen) 500 Mg Tablet 1 TAB PO Q8H PRN for pain for 15 Days, #45 TAB Discharge Summary: History of Present Illness Leda Rosenbaum is a 29-year-old female with a past medical history significant for chronic back pain, colon cancer with metastasis s/p colectomy in 2023 currently on chemotherapy with pump who presented to the ED with chief complaint of intractable upper medial paraspinal back pain which did not alleviate with h ome Dilaudid. Patient denies prior IN/CAD, CVA, cardiac arrhythmia, DVT/PE, or GIB. Patient denies chest pain, palpitations, shortness of breath, abdominal pain, n/v/d, fever, chills, dysuria. Patient is to be admitted for further workups and treatment. Hospital Course Initial diagnostic findings were notable for elevated lactic acid with mild acidosis and pancytopenia consistent with history. CT abdomen/pelvis showed no evidence of pulmonary embolism but metastatic appearing multiple bilateral pulmonary masses, lesions, infiltration throughout the right lobe of the liver consistent with history. Pertinent negative findings were urinalysis negative for urinary tract infection, negative procal, unlikely findings of pneumonia other than known history of metastatic neoplasm. Patient was treated with bolus intravenous fluids followed by continuous fluids and supportive care. Patient did not experience further complications throughout the entire hospital stay made a good recovery earlier than expected. Patient no longer reports back pain and verbalizes willingness for discharge. Patient was seen and examined on the d ay of discharge. On day of discharge, vss, on room air, and labs unremarkable. Lactic acid normalized. All labs, diagnostic workups, discharge plan discussed with patient in details during visit before discharge. All questions and concerns answered to the best of my professional knowledge. Patient is to be discharged to home to self and to follow-up with PCP and her oncologist within 2 weeks. Physical Exam General: A&Ox 3, NAD HEENT: Normocephalic, PERRLA Neck: Supple, trachea midline, no JVD Chest: Clear to auscultation bilaterally Cardiovascular: RRR, S1&S2 Abdomen: Soft and nontender, colostomy in LLQ abdomen Extremities: No cyanosis/clubbing/or edema Central Nervous System: CN II-XII intact, no focal deficits Musculoskeletal: No paraspinal muscle tenderness, no muscle spasm Skin: Warm and intact *Problems/Diagnosis: (1) Acute back pain Status: Acute (2) Back problem Status: Chronic (3) Cancer Status: Chronic (4) Acute on chronic back pain Status: Acute Total Time Spent on D/C: > 30 Minutes Date of Service: Jan 16, 2025 Billing Provider: RODRIGO RAJPUT Common Visit Codes: 80709-IDE/OBS DISCH DAY >30min RODRIGO RAJPUT Jan 16, 2025 10:47
[2025-01-19] MEDS ORDERED: [UNRECOGNIZED DRUG - REMARK] TD SCH (06:35)
== END 2025-01-16 13:10 | disposition home or self-care (01) | DRG 347 ==
LOC: ER 07:28 → ED HOLD 12:26 → ORTHO 4S 17:45
PROVIDERS: ADMIT Nurse Practitioner Family; ATTEND Nurse Practitioner Family
PROC: B32T1ZZ Computerized Tomography (CT Scan) of Left Pulmonary Artery using Low Osmolar Contrast (ICD-10-PCS; principal; 2025-01-15)
PROC: B32S1ZZ Computerized Tomography (CT Scan) of Right Pulmonary Artery using Low Osmolar Contrast (ICD-10-PCS; 2025-01-15)
DX: M54.9 Dorsalgia, unspecified (principal); C78.02 Secondary malignant neoplasm of left lung; C78.01 Secondary malignant neoplasm of right lung; E87.20 Acidosis, unspecified; C78.7 Secondary malignant neoplasm of liver and intrahepatic bile duct; E43 Unspecified severe protein-calorie malnutrition; D61.818 Other pancytopenia; R62.7 Adult failure to thrive; E86.0 Dehydration; D84.9 Immunodeficiency, unspecified; G89.29 Other chronic pain; Z90.49 Acquired absence of other specified parts of digestive tract; Z93.3 Colostomy status; Z85.038 Personal history of other malignant neoplasm of large intestine; Z79.01 Long term (current) use of anticoagulants; Z68.1 Body mass index [BMI] 19.9 or less, adult
CPT/HCPCS: 36415; 71275; 80053; 81001; 83605; 83690; 83735; 84145; 84484; 84702; 85007; 85025; 85610; 87040; 87081; 87811; 96374; 96375; 99285; G0378; J1171; J2270; J2405; J3490; J7030; J7512; Q9967

== ENCOUNTER 2025-01-30 09:36 | Inpatient (IN) | payer MEDICAID ==
[~2025-01-30] VITALS: Ht 157.5 cm; Wt 38.4 kg
[~2025-01-30 09:36] MED LIST changes: -ACET-75 PO; +CETI10TA15 PO; +FENT1PAT5 TOP; +FENT1PAT8 TOP; +LACT-373 PO
--- NOTE | 2025-01-30 10:20 | ELECTROCARDIOGRAPH REPORT ---
[facility] Test Date: 2025-01-30 Test Time: 10:17:25 Pat Name: CHUCK HARMON Department: [facility]- Patient ID: [facility]-[id number] Room: Gender: F Rn New Graduate: : 1995 Requested By: VENKATA ESTRELLA Order Number: [id number] Reading MD: Dr. Vasiliy Dorado Measurements Intervals [place] Rate: 168 P: 84 SC: 97 QRS: -47 QRSD: 95 T: 0 QT: 286 QTc: 479 Interpretive Statements Sinus tachycardia Consider right atrial enlargement Left axis deviation Borderline T wave abnormalities Borderline prolonged QT interval Artifact in lead(s) II,III,aVR,aVL,aVF,V5,V6 and baseline wander in lead(s) I,III,aVL,aVF,V1,V2,V3,V4 Electronically Signed On 01-30-2025 18:50:[address] Vasiliy Dorado Please click the below link to view image of tracing.
--- NOTE | 2025-01-30 10:26 | Physician Documentation ---
History of Present Illness ~ Chief Complaint: Back Pain Stated Complaint: VOMITING AND FEVER/CANCER Time Seen by MD: 10:13 Primary Medical Doctor: [facility] Source: patient, family Mode of Arrival: POV Exam Limitations: no limitations HPI Chief Complaint: Back pain, fever Caveat: None Independent Historians: Mother History of Present Illness: Patient is a 29-year-old woman this started to have severe back pain earlier this morning. She had associated nausea and vomiting. After that her back pain got worse. Pain is constant. She describes as cramping. Patient states that she has had this before. She believes they are muscle cramps. Patient also developed some abdominal cramping after the vomiting. Patient states that she started to have a fever in the middle of the night. No dysuria urgency or frequency. Patient denies any cough or difficulties breathing. Patient denies any sore throat. Review of systems: All systems were reviewed and are negative except for what is indicated in the history of present illness. Past Medical History: Stage IV colon cancer Past Surgical History: Colostomy, partial colectomy Social History: Medications: Reviewed as documented Nursing Notes Allergies: Reviewed as documented in Nursing Notes Medication Reconciliation Allergies: Coded Allergies: walnut (Unverified Allergy, Unknown, 10/24/24) prochlorperazine (Unverified Adverse Reaction, Mild, tremors, 10/24/24) Scheduled Acetaminophen (Tylenol), 650 MG PO Q6H PRN PAIN, (Reported) Apixaban (Eliquis), 1 TAB PO BID, (Reported) Cetirizine HCl (Cetirizine HCl), 1 TAB PO DAILY, (Reported) Fentanyl (Fentanyl), 1 PATCH TOP Q72H, (Reported) Fentanyl (Fentanyl), 1 PATCH TOP Q72H, (Reported) Ferrous Sulfate (Ferrous Sulfate), 1 TAB PO DAILY Ivabradine HCl (Corlanor), 1 TAB PO Q12H, (Reported) Lactulose (Lactulose), 30 ML PO BID, (Reported) Prednisone* (Prednisone*), 2 TAB PO DAILY, (Reported) Scheduled PRN Cyclobenzaprine* (Cyclobenzaprine*), 1 TABLET PO Q8H PRN for muscle spasms ONDANSETRON ODT 4mg tablet (Ondansetron Odt), 1 TAB PO Q6H PRN PRN for naus ea/vomiting Past Medical History Past Medical History: *CARDIOVASCULAR*, *CANCER*, Colon Cancer Other Past Surgical History: endoscopy, colonoscopy Patient History: Patient reports no known family medical history. Alcohol Use: None Drug Use: none Lives In: Home Review of Systems All Other Systems at this time: Reviewed and Negative ROS Patient denies any other acute symptoms other than above. All other systems are negative Physical Exam Physical Exam Vital Signs: RN Vital Signs have been reviewed: Yes, Temperature: 100.1, Source: Oral, Heart Rate: 180, Respiratory Rate: 20, BP: 121/79, Pulse Oximetry: 96, Weight: 38.400 Pulse Oximetry Reflects: adequate oxygenation Physical Exam General Appearance: Severe distress, acutely and chronically ill-appearing, cachectic HEENT: Normal OP, moist oral mucosa, PERRL, EOMI Neck: supple, normal ROM, trachea midline Pulmonary: No respiratory distress, CTA, BS equal Cardiac: RRR, no murmur, rub or gallop, GI: nondistended, soft, nontender, normal bowel sounds, no guarding, no rebound, colostomy bag Back: Extremities: normal ROM, no swelling, non-tender Skin: intact, dry, warm, no rashes Neuro: AAOx3, speech is clear, no focal motor weakness Psych: normal affect, good eye contact, no apparent hallucination, normal speech Progress Results/Orders Results/Orders Orders - VENKATA ESTRELLA MD Chest,Single View (01/30/25 09:58) Monitor (01/30/25 09:58) Saline Lock (01/30/25 09:58) Oxygen (01/30/25 09:58) Culture Blood (01/30/25 09:58) CMP (01/30/25 10:20) Ct Abdomen Pelvis (01/30/25 10:20) Nothing By Mouth (01/30/25 Dinner) Straight Cath For Urine Sample (01/30/25 10:20) Completed Orders - VENKATA ESTRELLA MD Chest,Single View (01/30/25 09:58) Cbc/Diff (01/30/25 09:58) PBNP (01/30/25 09:58) Electrocardiogram (01/30/25 09:58) Procalcitonin (01/30/25 09:58) Lacticsepsis (01/30/25 09:58) Urinalysis, Cult If Indicated (01/30/25 10:20) Hcg, Ur Ql (01/30/25 10:20) Ondansetron Inj. (Zofran 4mg/2ml Vial) (01/30/25 10:20) Normal Saline 1000ml (0.9% Sodium Chlori (01/30/25 10:20) Ct Abdomen Pelvis (01/30/25 10:20) Diazepam Inj (Valium Inj) (01/30/25 10:25) Ketorolac Trometh 15mg/Ml Vial (Toradol (01/30/25 10:25) CMP (01/30/25 10:14) Lipase (01/30/25 10:14) Man Diff (01/30/25 10:14) Diazepam Inj (Valium Inj) (01/30/25 10:45) Morphine 4mg/Ml Inj. (Morphine Inj.) (01/30/25 10:45) Diazepam Inj (Valium Inj) (01/30/25 11:00) Lactic,2hr (01/30/25 11:42) Hydromorphone 1 Mg/Ml/Pf (Dilaudid Inj.) (01/30/25 12:00) Ringers Solution, Lacted (Lactated Ringe (01/30/25 13:35) Piperacillin/Tazo 3.375gm/50ml (Zosyn 3. (01/30/25 13:35) Hydromorphone 1 Mg/Ml/Pf (Dilaudid Inj.) (01/30/25 13:40) Medications Received in ER Medications (Trade) Dose Ordered Sig/Andra Route PRN Reason Start Time Stop Time Status Last Admin Dose Admin (Zofran 4mg/2ml vial) 4 mg ONCE ONCE IV 01/30/25 10:20 01/30/25 10:22 DC 01/30/25 10:29 4 MG (0.9% sodium chloride (NS) 1000ml IV soln) 1,000 ml ONCE ONCE IVB 01/30/25 10:20 01/30/25 10:22 DC 01/30/25 10:30 1,000 ML (Valium inj) 5 mg ONCE ONCE IV 01/30/25 10:25 01/30/25 10:26 DC 01/30/25 10:28 5 MG (Toradol injection) 15 mg ONCE ONCE IV 01/30/25 10:25 01/30/25 10:27 DC 01/30/25 10:38 15 MG (morphine inj.) 4 mg ONCE ONCE IV 01/30/25 10:45 01/30/25 10:46 DC 01/30/25 10:57 4 MG (Valium inj) 10 mg ONCE ONCE IV 01/30/25 11:00 01/30/25 11:09 DC 01/30/25 11:16 10 MG (Dilaudid inj.) 1 mg ONCE ONCE IV 01/30/25 12:00 01/30/25 12:09 DC 01/30/25 12:26 1 MG (lactated ringers solution) 1,000 ml ONCE ONCE IV 01/30/25 13:35 01/30/25 13:36 DC 01/30/25 14:44 1,000 ML Piperacillin/ Tazobactam/ Dextrose 50 ml @ 100 mls/hr ONCE ONCE IV 01/30/25 13:35 01/30/25 14:04 DC 01/30/25 15:22 100 MLS/HR (Dilaudid inj.) 1 mg ONCE ONCE IV 01/30/25 13:40 01/30/25 13:49 DC 01/30/25 14:43 1 MG Vital Signs 01/30/25 01/30/25 01/30/25 01/30/25 09:49 10:53 11:01 11:15 Temp 100.1 Pulse 180 157 142 Resp 20 22 20 B/P (MAP) 121/79 125/89 (101) 138/94 (109) Pulse Ox 96 97 99 O2 Flow Rate 0 0 01/30/25 01/30/25 01/30/25 01/30/25 11:26 12:00 12:08 13:14 Temp 98.9 Pulse 138 142 128 Resp 20 16 20 B/P (MAP) 130/100 (110) 136/101 (113) 129/102 (111) Pulse Ox 96 99 98 O2 Flow Rate 0 0 0 01/30/25 01/30/25 01/30/25 01/30/25 14:00 14:15 15:15 15:22 Pulse 125 124 127 112 Resp 12 16 20 16 B/P (MAP) 131/93 (106) 134/89 (104) 129/102 (111) 123/99 (107) Pulse Ox 100 100 99 99 O2 Flow Rate 0 0 0 0 01/30/25 01/30/25 16:20 17:20 Pulse 106 102 Resp 18 18 B/P (MAP) 131/98 (109) 119/94 (102) Pulse Ox 99 100 O2 Flow Rate 0 0 Laboratory Tests Test 01/30/25 10:14 01/30/25 11:04 01/30/25 12:23 White Blood Count 1.2 L Red Blood Count 4.02 L Hemoglobin 10.9 L Hematocrit 33.3 L Mean Corpuscular Volume 82.9 Mean Corpuscular Hemoglobin 27.1 Mean Corpuscular Hemoglobin Concent 32.7 L Red Cell Distribution Width 19.3 H Platelet Count 302 Mean Platelet Volume 7.3 L Neutrophils (%) (Auto) 38.4 L Lymphocytes (%) (Auto) 54.2 H Monocytes (%) (Auto) 3.8 Eosinophils (%) (Auto) 3.2 Basophils (%) (Auto) 0.4 Neutrophils # (Auto) 0.4 L Lymphocytes # (Auto) 0.6 L Monocytes # (Auto) 0.0 Eosinophils # (Auto) 0.0 Basophils # (Auto) 0.0 CBC Comment Differential Total Cells Counted 100 Neutrophils % (Manual) 11.0 L Band Neutrophils % 59.0 H Lymphocytes % (Manual) 17.0 L Monocytes % (Manual) 11.0 Eosinophils % (Manual) 1.0 Metamyelocytes % 1.0 H Platelet Estimate Normal Red Blood Cell Morphology Perf Poikilocytosis 2+ Basophilic Stippling Anisocytosis 2+ Microcytosis Few Tear Drop Cells Few Sodium Level 136 Potassium Level 4.0 Chloride Level 104 Carbon Dioxide Level 23.5 L Anion Gap 9 Blood Urea Nitrogen 8 Creatinine 0.94 H Estimated GFR/1.73 m2 70 BUN/Creatinine Ratio 8.5 L Glucose Level 108 H Lactic Acid Level 3.0 H 3.4 H Calcium Level 9.0 Total Bilirubin 0.7 Aspartate Amino Transf (AST/SGOT) 47 H Alanine Aminotransferase (ALT/SGPT) 20 Alkaline Phosphatase 217 H Pro-B-Type Natriuretic Peptide 289 H Total Protein 7.2 Albumin 2.6 L Globulin 4.6 H Albumin/Globulin Ratio 0.6 L Lipase 19 Procalcitonin 1.20 H Chemistry Comments Urine Specimen Description Cln catch midstream Urine Color Yellow Urine Clarity Clear Urine pH 6.0 Urine Specific [place] 1.020 Urine Protein Negative Urine Glucose (UA) Negative Urine Ketones Negative Urine Occult Blood Negative Urine Nitrite Negative Urine Bilirubin Negative Urine Urobilinogen 0.2 Urine Leukocyte Esterase Negative Urine Culture Indicated Not ind Volume Urine Centrifuged 10 ml Urine HCG, Qualitative Negative Urine Comment Microbiology Date/Time Source Procedure Growth Status 01/30/25 10:18 Blood Blood Culture - Preliminary NEGATIVE (LESS THAN 24 HOURS) Resulted Medical Decision Making Findings Differential diagnosis includes but is not limited to: Electrolyte abnormalitie s, muscle spasms, pneumonia, intra-abdominal infection, urinary tract infection, viral illness EKG independent interpretation: Performed at 10:17 a.m.. Sinus tachycardia, heart rate 168, left axis deviation Chest x-ray, single view, indication: Back pain, abdominal pain, metastatic cancer Independent interpretation: Lungs are clear, normal mediastinum, normal cardiac silhouette. No acute cardiopulmonary process. Infusion catheter in superior vena cava. CTA abdomen and pelvis without IV contrast, indication: Abdominal pain, history of metastatic colon cancer Impression: 1. Innumerable hepatic masses with interval development of hyperdensities which may reflect posttreatment changes. Masses appear slightly larger since the prior CT from 05/01/2024 concerning for disease progression. 2. Common bile duct stent containing soft tissue density suggesting occluded st ent. 3. Postsurgical changes from partial colectomy. Left lower quadrant colostomy. 4. Constipation. Laboratory data independent interpretation: CBC: Leukopenia WBC 1.2, mild anemia hemoglobin 10.9, normal platelets 302, 59% bands CMP: Alk-phos elevated to 17, AST elevated 47, total bilirubin normal 0.7, ALT normal 20 Lactic acid: 3 Repeat lactic acid 3.4 Procalcitonin: Elevated at 1.20 Urinalysis: Unremarkable Urine : Negative Emergency department course/medical decision-making: Patient is a 29-year-old woman with metastatic colon cancer to the liver and lungs. Patient presents with severe diffuse back pain. She has some abdominal pain also. Patient has had similar back pain in the past. Patient was thinking that this may be muscle spasms. Patient was given multiple doses of the IV Valium and then morphine. This helped some and patient's pain improved to a 7/10. However patient's pain continued and she is given Dilaudid. This seems to have helped. Patient does not have any peritoneal signs. CT scan of the abdomen and pelvis was performed to help try and elucidate the source and cause of the pain. However there does not appear to be any explanation. Of concern is the patient's bandemia. Patient has bandemia 59% but is leukopenic with a white blood cell count and 1.2. Patient's last chemotherapy was two weeks ago. Patient's antibiotic coverage will be brought in and IV vanco we will be ordered. Patient understands that I am recommending admission. Test results and treatment plan and all of the above discussed with the patient and the mother. 5:50 p.m.: Patient's heart rate is improved. Consultation/communications: 1:50 p.m.: [facility] transfer prospect called to initiate transfer to [facility]. 4:22 p.m.: Case discussed with [facility] transfer center. We will await for a call back. 5:50 P.M.: [facility] CALL BACK IN DENIED TRANSFER BECAUSE OF BED AVAILABILITY. 5:50 p.m.: Still have not received another call back from [facility]. Departure Time of Disposition: 13:34 Disposition: 09 ADMITTED INPATIENT Admitted to Inpatient Unit: to hospitalist Admission Level of Care: Med/Surg Impression: Primary Impression: Intractable back pain Additional Impressions: Leukopenia Qualified Codes: D70.1 - Agranulocytosis secondary to cancer chemotherapy; T45.1X5A - Adverse effect of antineoplastic and immunosuppressive drugs, initial encounter Bandemia Condition: Fair Education Educated: Patient, Family Educated regarding: diagnosis Signature Scribe Signature: No scribe Attestation: No scribe VENKATA ESTRELLA MD Jan 30, 2025 10:26
[2025-01-30 10:28] LABS: MEAN PLATELET VOLUME 7.3 FL (7.4-10.4); RED CELL DISTRIBUTION WIDTH 19.3 % (11.5-14.5)
[2025-01-30] MEDS: diazepam inj 5 MG/ML inj. IV ONE ×2 (10:28→11:16)
[2025-01-30] MEDS: ondansetron/PF 4mg/2ml inj IV ONE ×2 (10:29→19:02)
[2025-01-30] MEDS: normal saline 1000ML IV soln IVB ONE (10:30)
[2025-01-30] MEDS: ketorolac trometh 15mg/ml vial 15 MG/ML ML IV ONE (10:38)
[2025-01-30 10:39] LABS: CREATININE 0.94 MG/DL (0.40-0.90); TOTAL CARBON DIOXIDE 23.5 MMOL/L (24-32); eCRCL 53 ML/MIN; eGFR 70 ML/MIN
[2025-01-30] MEDS ORDERED: diazepam inj 5 MG/ML inj. IV PRN (10:45)
[2025-01-30 10:47] LABS: PRO BRAIN NATRIURETIC PEPTIDE 289 PG/ML (0-125)
[2025-01-30] MEDS: morphine 4 MG/ML inj SYRINge IV ONE (10:57)
--- NOTE | 2025-01-30 10:58 | RADIOLOGY REPORT ---
AP portable chest Comparison: 05/01/2024 CLINICAL INDICATION: CP FINDINGS: Chemo infusion catheter tip in the low superior vena cava. Heart size is normal. No infiltrates or effusions. No bony thoracic abnormalities. IMPRESSION: 1. No acute disease
[2025-01-30 11:22] LABS: BANDS% (MANUAL) 59.0 % (0-10); EOSINOPHILS % (MANUAL) 1.0 % (0-6); LYMPHOCYTES % (MANUAL) 17.0 % (21-51); METAMYLEOCYTES% (MANUAL) 1.0 % (0-0); MONOCYTES % (MANUAL) 11.0 % (2-12); NEUTROPHILS % (MANUAL) 11.0 % (42-75)
[2025-01-30 11:25] LABS: PLATELET ESTIMATE NORMAL
[2025-01-30 11:49] LABS: URINE HCG NEGATIVE (NEG)
[2025-01-30 11:50] LABS: LEUKOCYTE ESTERASE ,URINE NEGATIVE (Neg); NITRITES, URINE NEGATIVE (Neg); OCCULT BLOOD,URINE NEGATIVE (Neg)
[2025-01-30 11:59] LABS: UA COLLECTION TYPE CLN CATCH MIDSTREAM
--- NOTE | 2025-01-30 12:46 | RADIOLOGY REPORT ---
Exam: CT CT ABDOMEN PELVIS History: Abdominal Pain Comparison Study: CT CT ABDOMEN PELVIS on DOS: 05/01/24, CT CT ABDOMEN PELVIS on DOS: 11/13/23, CT CT ABDOMEN PELVIS on DOS: 09/14/23 TECHNIQUE: Multidetector CT of the abdomen and pelvis was performed from lung bases to ischial tuberosities. Imaging was performed without IV contrast using axial images. Coronal and sagittal reformats were obtained from the axial data set by the technologist. Radiation Dose Information: CT Dose: CTDI volume is 4.0 mGy. Dose-length product is 198.2 mGy*cm FINDINGS: Evaluation of solid organs is limited due to lack of intravenous contrast use. Findings: Lung Bases: No acute or significant lung base finding. Normal heart size. No pleural or pericardial effusion. Liver: The liver has a nodular contour. Innumerable hepatic lesions are again identified with interval development of hyperdensities throughout the masses which may reflect treatment changes. Masses appear increased in size but difficult to further evaluate without the benefit of intravenous contrast. Gallbladder and Biliary Tree: The gallbladder is contracted. There is a common bile duct stent containing soft tissue density. Intrahepatic biliary ductal dilatation is noted. Spleen: The spleen is normal in size. Pancreas: The pancreas is grossly normal in appearance. Adrenal Glands: Unremarkable Kidneys: Kidneys are grossly normal without calculi or hydronephrosis. GI Tract: The stomach is grossly normal in appearance. Small bowel is grossly unremarkable. Postsurgical changes from partial colectomy. Diffuse stool is present throughout the colon. There is a left lower quadrant colostomy. No findings to suggest acute appendicitis. Peritoneal cavity: No pneumoperitoneum. No ascites. Lymphadenopathy: No mesenteric, retroperitoneal or periportal lymphadenopathy. Abdominal Wall and Mesentery: Unremarkable. Vasculature: The visualized abdominal aorta is normal in size and caliber. Evaluation of abdominal and pelvic vessels is limited due to lack of intravenous contrast. Pelvic Organs: Unremarkable Urinary Bladder: Grossly unremarkable for degree of distention. Musculoskeletal: No aggressive focal bony lesions, acute fractures or dislocation. Soft tissues: Unremarkable IMPRESSION: 1. Innumerable hepatic masses with interval development of hyperdensities which may reflect posttreatment changes. Masses appear slightly larger since the prior CT from 05/01/2024 concerning for disease progression. 2. Common bile duct stent containing soft tissue density suggesting occluded stent. 3. Postsurgical changes from partial colectomy. Left lower quadrant colostomy. 4. Constipation. Radiation optimization: All CT scans at this facility use at least one of these dose optimization techniques: automated exposure control mA and/or kV adjustment per patient size (includes targeted exams where dose is matched to clinical indication) or iterative reconstruction.
[2025-01-30] MEDS: ringers solution, lactated 1000ml IV soln IV ONE (14:44)
[2025-01-30] MEDS: piperacillin/tazo 3.375gm/50ml 50 ML IV ONE (15:22)
[2025-01-30] MEDS: VANCOmycin 1250MG/NS 250ml Bag 250 ML IV STA (19:02)
[2025-01-30] MEDS ORDERED: CYCL-394 PO (19:20)
[2025-01-30] MEDS ORDERED: PANT40TA54 PO (19:25)
[2025-01-30] MEDS ORDERED: ONDA-245 PO (19:27)
[2025-01-30] MEDS ORDERED: LORA-268 PO (19:29)
[2025-01-30] MEDS ORDERED: HYDR4TAB55 PO (19:30)
[2025-01-30] MEDS ORDERED: magnesium sulf-water 4G/100mL 100 ML IV PRN (20:25)
[2025-01-30] MEDS ORDERED: mag hydrox/Alum hydrox/simeth 30ml oral suspension PO PRN (20:25)
[2025-01-30] MEDS ORDERED: magnesium sulf-water 2g/50mL 50 ML IV PRN (20:25)
[2025-01-30] MEDS ORDERED: potassium Cl 20 mEq SR tablet PO PRN (20:25)
[2025-01-30] MEDS ORDERED: magnesium Cl slow-release 64mg tablet PO PRN (20:25)
[2025-01-30] MEDS ORDERED: magnesium hydroxide 30ml (MOM) UD suspension PO PRN (20:25)
[2025-01-30] MEDS ORDERED: ondansetron/PF 4mg/2ml inj IV PRN (20:25)
[2025-01-30] MEDS ORDERED: potassium Cl 40MEQ/1/2NS 520ml 520 ML IV PRN (20:25)
[2025-01-30 20:48] LABS: MEAN PLATELET VOLUME 7.5 FL (7.4-10.4); RED CELL DISTRIBUTION WIDTH 18.9 % (11.5-14.5)
[2025-01-30 21:13] LABS: CREATININE 0.65 MG/DL (0.40-0.90); PHOSPHORUS 3.6 MG/DL (2.3-4.5); PRO BRAIN NATRIURETIC PEPTIDE 2436 PG/ML (0-125); TOTAL CARBON DIOXIDE 26.5 MMOL/L (24-32); eCRCL 77 ML/MIN; eGFR > 90 ML/MIN
--- NOTE | 2025-01-30 21:23 | HISTORY AND PHYSICAL-Residence ---
History & Physical Providers to CC Resident Creating Document: GUSTABOCARLY VALERIANO ~ History of Present Illness Primary Medical Doctor: [facility] Reason for Admit\Complaint: Back pain, fever History of Present Illness 29-year-old female with history of colon cancer with liver and lung metastasis s/p sigmoid colectomy with colostomy, currently on chemotherapy presented to the ED with chief complaint of back pain and fever. She states that she has been having chronic back pain for the past few months and uses cyclobenzaprine and fentanyl patches at home. She states that last night, she was feeling feverish, and having chills and gradually the back pain started. She states that the back pain started at the center of her lower back and became diffuse with a severity of 5/10. She had mild nausea today morning and vomited the water she drank. The patient called her oncologist, and was recommended to come to the ED. She states that her last chemotherapy was on January 13. She was supposed to get another session last Saturday but due to her low neutrophil count, she did not get one. She states that she got mild walton on her right hand last week but it has been healing. She denies cough, burning micturition, frequency, urgency, recent infections, sick contacts, recent travel. She states that she has decreased appetite and has lost weight after her diagnosis of colon cancer. She denies chest pain, shortness of breath, palpitations, abdominal pain, dizziness, syncope, swelling or pain in legs, constipation, diarrhea. Allergies: Coded Allergies: walnut (Unverified Allergy, Unknown, 10/24/24) prochlorperazine (Unverified Adverse Reaction, Mild, tremors, 10/24/24) Home Medications Home Medications Active Ferrous Sulfate 324 Mg (65 Mg Iron) Tablet.dr 1 Tab PO DAILY 30 Days Take 1 tablet every alternate day Reported Hydromorphone HCl 4 Mg Tablet 0.5 Tab PO Q4H PRN Ativan (Lorazepam) 0.5 Mg Tablet 1 Tab PO Q6H PRN Ondansetron Odt (Ondansetron HCl) 8 Mg Tab.rapdis 1 Tab PO Q6H 3 Days Pantoprazole Sodium 40 Mg Tablet.dr 1 Tab PO QAM Cyclobenzaprine HCl 10 Mg Tablet 5 Mg PO HS Lactulose 10 Gram/15 Ml Solution 30 Ml PO BID PRN Cetirizine HCl 10 Mg Tablet 1 Tab PO DAILY Fentanyl 25 Mcg/Hour Patch.td72 1 Patch TOP Q72H Fentanyl 12 Mcg/Hour Patch.td72 1 Patch TOP Q72H Tylenol (Acetaminophen) 325 Mg Tablet 650 Mg PO Q6H PRN PAIN 10 Days Corlanor (Ivabradine HCl) 5 Mg Tablet 1 Tab PO DAILY 30 Days Prednisone* (Prednisone) 5 Mg Tablet 1 Tab PO DAILY Eliquis (Apixaban) 5 Mg Tablet 2.5 Tab PO BID Past Medical History Past Medical History Colon cancer with lung and liver metastasis s/p colectomy, on chemotherapy Chronic back pain Past Surgical History Surgical History Comment Sigmoid Colectomy and colostomy CBD stent placement Family History Family History: Patient reports no known family medical history. Past Social History Social History Comment She is a nonsmoker and denies recreational drug use She drinks alcohol rarely Smoking: Non-Smoker Alcohol Use: None Drug Use: None Lives In: Home ROS All Other Systems: Reviewed and Negative ROS Constitutional: Reports fever, chills, weight loss. No dizziness, weight gain Eyes: No pain, erythema, discharge, blurring of vision ENT: No sore throat, epistaxis, tinnitus Cardiovascular:No chest pain, palpitations, syncope, lower extremity edema, paroxysmal nocturnal dyspnea Respiratory: No Shortness of breath and cough, No hemoptysis. Gastrointestinal: Reports nausea and vomiting, No Abdominal pain, constipation,diarrhea. Normal appetite. No hematemesis or melena. Musculoskeletal: Reports back pain, No Swelling, pain in bilateral lower legs. Integumentary: No change in skin, hair, nails. No swelling, bruising, abrasions Neurologic: Reports mild headache, No weakness, neck pain, numbness or tingling of the extremities, Psychiatric: No delusions, depression, loss of interest in normal activity or change in sleep pattern, hallucinations, suicidal ideations Endocrine: Reports weakness. No polydipsia, polyuria, change in appetite, heat or cold intolerance, sweating, dry skin Hematological: No bleeding, petechiae, bruising Allergies: No asthma or urticaria Exam Vitals: Vital Signs Date Time Temp Pulse Resp B/P (MAP) Pulse Ox O2 Delivery O2 Flow Rate FiO2 01/30/25 18:18 97 16 123/100 (108) 100 0 01/30/25 12:08 98.9 General: Awake , alert, and oriented x4, resting comfortably in the bed, in no acute distress HEENT: Atraumatic, normocephalic, EOMI, anicteric sclera ; pink conjunctiva Neck: Trachea midline. Supple, full range of motion, no JVD Cardiac: Tachycardic, Regular rhythm, with no murmurs all over the precordium. Respiratory: Equal breath sounds bilaterally, no tachypnea, no wheezing ,rub or rales, Chest wall is symmetric and without deformity. Gastrointestinal: Abdomen symmetric, non-distended, soft, non-tender, normal bowel sounds x4 quadrant, normoactive, no hepatosplenomegaly, colostomy bag present Musculoskeletal: No pedal edema, no cyanosis Neurological: Speech is clear, alert, and oriented x 4. No motor or sensory deficit, Cranial nerves II-XII intact. Skin: Small healing burn scars present on right hand with normal skin, Warm and dry Diagnostic Data Last Recorded Lab Results: 01/30/25 1014 01/30/25 1014 Diagnostic Data: Laboratory Tests Test 01/30/25 20:20 Coagulation Comments Advance Care Planning Advanced Care plannin - 30 Minutes (Full code) Additional Plan 29-year-old female with history of colon cancer with lung and liver metastasis status post colectomy currently undergoing chemotherapy came to the ED with complaints of fever and back pain. Colon cancer with liver and lung metastasis s/p colectomy, on chemotherapy (oncologist Dr. Martinez) Immunocompromised status Moderate Neutropenia Normocytic normochromic anemia Temperature was 100.1 F on admission, and downtrended to 98.9 F Tachycardic with normal blood pressure WBC is 1.2 on admission, neutrophils-11 %, absolute neutrophil count- 840 Lymphocytes-17 % SIRS criteria present, no source of infection H&H-10.9/33.3, normal MCV and MCHC, RDW is high-19.3 Platelet count is normal Procalcitonin is 1.2, lactic acid is elevated-3 Coagulation profile is normal, electrolytes are normal Total bilirubin is normal, lipase normal, alkaline phosphatase slightly elevated-217 Urinalysis is normal BNP is mildly elevated-289 EKG shows sinus tachycardia, rate 168, with left axis deviation with no ischemic changes or arrhythmia Chest x-ray shows no abnormality Abdomen/pelvis CT shows innumerable hepatic masses, common bile duct stent containing soft tissue density suggesting occluded stent and postsurgical changes from partial colectomy and constipation. Plan: 1 bolus of NS was given in the ED Started NS at 100 mL/hour Started IV vancomycin pharmacy to dose and IV Zosyn 3.375 g q.8h Follow up blood cultures Held her home medication prednisone 5 mg Patient takes Eliquis at home after the CBD stent, continued Eliquis 2.5 mg b.i.d. Continued her home medication ivabradine, monitor vitals Continue telemetry monitoring Follow up repeat procalcitonin Will plan to consult ID in the a.m. Chronic back pain Patient uses cyclobenzaprine 5 mg p.o. h.s. and fentanyl patches at home Started on Blanchard 5 mg/10 mg p.r.n. for moderate/severe pain respectively Severe protein calorie malnutrition Hypoalbuminemia BMI 15.5 Kg/m2 Follow up outpatient I spent a total of 18 minutes reviewing various resuscitative measures/ACP with the patient. The patient decided to be full code. Code status: Full code DVT prophylaxis: Eliquis 0.5 mg b.i.d. GI prophylaxis: Pantoprazole 40 mg p.o. Pain management: Blanchard 5 mg/10 mg Diet/nutrition: Neutropenic diet Prognosis: Guarded Disposition: Continue medical management, PT eval and DC plan Resident MD attestation: The patient note has been reviewed and supervised by senior residents PGY-2/ PGY-3. Patient was seen, examined and discussed with attending physician. Carly Mora MD Internal Medicine resident, PGY-1 I saw and discussed the case with the resident I agree with assessment and plan Date of Service: Jan 30, 2025 Billing Provider: GERRI REYNOSO MD, PREETHI, RES Jan 30, 2025 21:22 GERRI REYNOSO MD Jan 31, 2025 08:43
[2025-01-30 21:28] LABS: BANDS% (MANUAL) 2.0 % (0-10); LARGE PLATELETS FEW; LYMPHOCYTES % (MANUAL) 20.0 % (21-51); MONOCYTES % (MANUAL) 19.0 % (2-12); NEUTROPHILS % (MANUAL) 59.0 % (42-75); PLATELET ESTIMATE NORMAL
[2025-01-30 21:39] LABS: APTT 23 SECONDS (22-32); INR 1.3 INR
[2025-01-30 23:00] VITALS: BP 145/101; PULSE 96; RESP 18; TEMP 98; O2SAT 100
[2025-01-30] MEDS: morphine 4 MG/ML inj SYRINge IV PRN (23:22)
[2025-01-30] MEDS: normal saline 1000ml 1,000 ML IV SCH (23:49)
[2025-01-30] MEDS: piperacillin/tazo 3.375gm/50ml 50 ML IV SCH (23:50)
[2025-01-31] VITALS (8 sets, daily range): BP systolic 116–138; BP diastolic 77–90; PULSE 77–114; RESP 12–16; TEMP 98–98.3; O2SAT 96–100
[2025-01-31] MEDS: ondansetron 4mg rapidly disintigrating tab PO SCH (02:00)
[2025-01-31] MEDS: vancomycin/NS 1 GM ADD-VANTAGE 250 ML IV SCH (07:11)
[2025-01-31] MEDS: docusate sod 100mg capsule PO SCH (07:21)
[2025-01-31] MEDS: pantoprazole 40mg Tablet.DR PO SCH (07:21)
[2025-01-31] MEDS: lactobacillus rhamnosus 10,000 MMU CELLS/CAPSULE PO SCH (07:21)
[2025-01-31 07:51] LABS: RED CELL DISTRIBUTION WIDTH 19.5 % (11.5-14.5)
[2025-01-31 07:53] LABS: MEAN PLATELET VOLUME 7.7 FL (7.4-10.4)
[2025-01-31] MEDS: K and/or MAG REPLACEMENT MC SCH (08:00)
[2025-01-31 08:55] LABS: CHOL/HDL RATIO 2.5 (0.00-4.99); CREATININE 0.80 MG/DL (0.40-0.90); LDL CHOLESTEROL 53 MG/DL (50-100); TOTAL CARBON DIOXIDE 25.4 MMOL/L (24-32); eCRCL 62 ML/MIN; eGFR 84 ML/MIN
[2025-01-31] MEDS: [UNRECOGNIZED DRUG - REMARK] TD SCH ×2 (09:59→10:01)
[2025-01-31 10:00] LABS: BANDS% (MANUAL) 2.0 % (0-10); EOSINOPHILS % (MANUAL) 1.0 % (0-6); LYMPHOCYTES % (MANUAL) 15.0 % (21-51); MONOCYTES % (MANUAL) 20.0 % (2-12); NEUTROPHILS % (MANUAL) 62.0 % (42-75); PLATELET ESTIMATE NORMAL
[2025-01-31 10:01] LABS: ELLIPTOCYTES FEW
[2025-01-31] MEDS: fentaNYL 25MCG/hour patch.TD72 TD SCH (11:23)
--- NOTE | 2025-01-31 11:59 | RADIOLOGY REPORT ---
CLINICAL INFORMATION: Occluded common bile duct stent. TECHNIQUE: There is a common bile duct stent in place. COMPARISON: CT CT ABDOMEN PELVIS on DOS: 01/30/25, CT CT ABDOMEN PELVIS on DOS: 05/01/24, CT CT ABDOMEN PELVIS on DOS: 11/13/23 FINDINGS: Again noted are multiple lesions in the liver, not optimally evaluated on noncontrast enhanced MRI. Common bile duct stent in place. There is filling defect at the proximal aspect of the stent, may be due to tumor from adjacent hepatic mass when correlated with recent CT images. There is T2 hyperintense signal throughout most of the course of the stent presumably due to bile flowing in the stent. There are areas of linear hypointense signal within the common bile duct at the level of the stent, which may be due to debris within the common bile duct at the level of the stent. There is mild dilation of the left hepatic duct with narrowing more centrally near the level of the common bile du ct stent. There are prominent peripheral right hepatic duct branches with nonvisualized more central right hepatic duct, likely due to tumor. There is possible filling defect at the distal aspect of the common bile duct stent. Pancreatic duct appears unremarkable. IMPRESSION: 1. Multiple liver lesions again noted, not well evaluated on noncontrast enhanced exam. 2. Common bile duct stent in place. There is T2 hyperintense signal throughout most of the common bile duct at the level of the stent, with filling defects at the proximal aspect of the stent and at the distal aspect of the stent. The filling defect of the proximal aspect of the stent may be due to tumor given the adjacent liver lesions. Probable debris in the common bile duct. Can not exclude obstruction of the distal common bile duct given the filling defect in this location. Correlate with clinical findings. If clinically indicated, ERCP could be considered. 3. Dilation of the left hepatic duct and peripheral aspects of the right hepatic duct with nonvisualized central intrahepatic ducts, likely due to obstruction associated with tumor. 4. Additional findings as described above.
[2025-01-31] MEDS: fentaNYL 12 MCG/hour patch.TD72 TD SCH (12:38)
[2025-01-31] MEDS: IVABRADINE HCL 5 MG PO SCH (13:11)
--- NOTE | 2025-01-31 14:36 | PROGRESS NOTE- Residence ---
Progress Note - Resident Providers to CC Resident Creating Document: NICHOLE TRIPP RES ~ Antibiotic Timeout Antibiotic Ordered?: Yes Subjective Seen the patient and examined the patient at bedside with full neutropenic precautions wearing a gown, glove, mask . Patient reports that improvement in the fever and denied any abdominal pain but still have the back pain Objective Vital Signs Date Time Temp Pulse Resp B/P (MAP) Pulse Ox O2 Delivery O2 Flow Rate FiO2 01/31/25 12:53 16 01/31/25 08:00 99 Room Air 0.0 01/31/25 07:00 98.0 114 123/90 (101) Result Diagram: 01/31/25 0645 01/31/25 0645 Awake , alert, and oriented x4, resting comfortably in the bed, in no acute distress HEENT: Atraumatic, normocephalic, EOMI, anicteric sclera ; pink conjunctiva Neck: Trachea midline. Supple, full range of motion, no JVD Cardiac: Tachycardic, Regular rhythm, with no murmurs all over the precordium. Respiratory: Equal breath sounds bilaterally, no tachypnea, no wheezing ,rub or rales, Chest wall is symmetric and without deformity. Gastrointestinal: Abdomen symmetric, non-distended, soft, non-tender, normal bowel sounds x4 quadrant, normoactive, no hepatosplenomegaly, colostomy bag present left side Musculoskeletal: No pedal edema, no cyanosis Neurological: Speech is clear, alert, and oriented x 4. No motor or sensory deficit, Cranial nerves II-XII intact. Skin: Small healing burn scars present on right hand with normal skin, Warm and dry Coagulation Studies Laboratory Tests Test 01/30/25 21:21 Prothrombin Time 12.8 SECONDS (9.0-12.0) H INR International Normalized Ratio 1.3 INR Activated Partial Thromboplast Time 23 SECONDS (22-32) Coagulation Comments Advance Care Planning Advanced Care plannin - 30 Minutes Plan Plan 29-year-old female with history of colon cancer with lung and liver metastasis status post colectomy currently undergoing chemotherapy came to the ED with complaints of fever and back pain. Moderate neutropenia likely secondary to chemotherapeutic immunosuppression Sepsis on POA Metastatic colon cancer with liver and lung Mets Status post colectomy White counts are improved from 1.2-5.3. CMP is okay with elevated ALP of 205, CRP of 17.38, procalcitonin 76.p. We will continue vancomycin and Zosyn. Patient is improving with the current management . We will continue the normal saline at the rate of 100 mL/hour Elevated ALP Possible CBD stent occlusion The night residents consulted Dr. Dhillon and she evaluated the patient and she thinks that patient needs eventually CBD stent removal but not as an emergency. However we started the transfer after talking with catalytic case operator Ms. Mckeon and she informed us that it is not possible to transferr to [facility] on today in view of ERCP and stent removal. MRCP showed possible filling defects in the proximal aspect of the stent into the distal aspect of the CBD stent. Dr. Dhillon thinks that it is not a CBD occlusion considering LFTs and serum ALP pattern. Normocytic normochromic anemia H&H is 10/31.5 with the increase in RDW of 20 Procalcitonin is elevated 76.92 and CRP is elevated EKG shows sinus tachycardia, rate 168, with left axis deviation with no ischemic changes or arrhythmia Continue to monitor H&H if less than 7 transfuse. Continue home medications of Eliquis and a vibrating Chronic back pain Patient uses cyclobenzaprine 5 mg p.o. h.s. and fentanyl patches at home Started on Dane 5 mg/10 mg p.r.n. for moderate/severe pain respectively Severe protein calorie malnutrition Hypoalbuminemia BMI 15.5 Kg/m2 Follow up outpatient I spent total of more than 35 minutes of critical care time. Code status: Full code DVT prophylaxis: Eliquis 2.5 mg b.i.d. GI prophylaxis: Pantoprazole 40 mg p.o. Pain management: Dane 5 mg/10 mg Diet/nutrition: Neutropenic diet Prognosis: Guarded Disposition: Patient may not need the acute transfer and we are treating immunosuppression related neutropenia with antibiotics and patient may need elective removal of CBD stent. Nichole Tripp MD IM resident, PGY 2 Date of Service: Jan 31, 2025 Billing Provider: PUMA MATHIAS MD,NICHOLE, RES Jan 31, 2025 14:36
[2025-01-31 16:43] LABS: MEAN PLATELET VOLUME 7.4 FL (7.4-10.4); RED CELL DISTRIBUTION WIDTH 20.0 % (11.5-14.5)
--- NOTE | 2025-01-31 18:20 | RADIOLOGY REPORT ---
INDICATION: CBD STENT OCCLUSION WITH ELEVATED ALP TECHNIQUE: Multiple real-time sonographic images of the abdomen were obtained. COMPARISON: CT CT ABDOMEN PELVIS on DOS: 01/30/25, CT CT ABDOMEN PELVIS on DOS: 05/01/24, CT CT ABDOMEN PELVIS on DOS: 11/13/23, CT CT ABDOMEN PELVIS on DOS: 09/14/23, DI ABDOMEN,SINGLE VIEW(KUB) on DOS: 09/10/23 FINDINGS: Liver is heterogeneous in echogenicity. Heterogeneous mass is seen in the right hepatic lobe which measures 5 x 4 x 3.2 cm Mild intrahepatic biliary dilatation. The gallbladder wall measures 0.1 cm and is unremarkable. No gallstones or gallbladder sludge. No pericholecystic fluid or edema. The common bile duct is dilated up to 0.6 cm The right kidney measures 9.7 cm. No hydronephrosis. The left kidney measures 10.8 cm. No hydronephrosis. The spleen measures 10.6 cm, within normal limits. The echogenicity is within normal limits. The pancreas is not well visualized due to obscuration from bowel gas. The visualized portions of the IVC and aorta are grossly unremarkable. IMPRESSION: 1. Heterogeneous mass in the right hepatic lobe measuring 5 x 4 x 3.2 cm. Recommend further evaluation with CT or MRI liver mass protocol. 2. Dilated common bile duct up to 0.6 cm.
--- NOTE | 2025-01-31 18:44 | CARDIOLOGY REPORT ---
APPROVED REPORT EXAM: Comprehensive 2D, Doppler, and color-flow Echocardiogram. Patient Location: 3010 Heart Rate: 103 bpm Rhythm: SINUS Indications ABNORMAL EKG COLON CANCER CHEMOTHERAPY LUNG METASTASIS Ed Manager: NONE Previous echo: NONE 2D Dimensions RVDd 1.8 cm IVSd 0.7 (0.7-1.1cm) LVDd 3.7 cm PWd 0.7 (0.7-1.1cm) IVSs 0.9 (0.8-1.2cm) LVDs 2.6 (2.5-4.0cm) PWs 1.0 (0.8-1.2cm) LVOT Diameter 1.94 (1.8-2.4cm) LVEF(%) 57.6 (>50%) FS (%) 29.7 % SV 32.7 ml CO 3.6 L/min M-Mode Dimensions Left Atrium(MM) 2.30 (2.5-4.0cm) Aortic Root 2.80 (2.2-3.7cm) Aortic Valve AoV Peak Arnold. 109.9 cm/s AoV VTI 17.8 cm AO Peak GR. 4.8 mmHg AO Mean GR. 3 mmHg LVOT VTI 13.77 cm LVOT Peak Arnold. 95.8 cm/s JAMILAH(VTI)/BSA 2.28 cm2/m2 JAMILAH (VTI) 2.28 cm2 AV DI 0.77 % Mitral Valve MV Peak Gr. 2 mmHg MV PHT 64 ms MVA (PHT) 3.44 cm2 MV VMax 76.3 cm/s TDI Lateral E' P. V 11.04 cm/s Pulmonary Vein S1 Velocity 52.0 cm/s D2 Velocity 52.9 cm/s PVa Velocity 42.2 cm/s PVa Duration 172 msec LEFT VENTRICLE Small LV size and wall thickness. Overall systolic function is normal. LVEF is 55-60%. RIGHT VENTRICLE RV is small in size with normal function. ATRIA The left atrium size is small. AORTIC VALVE Probable trileaflet AV appears normal without stenosis. No insufficiency. MITRAL VALVE Mild MV annular calcification without stenosis. Trace regurgitation. TRICUSPID VALVE TV appears structurally normal with trivial regurgitation. PULMONIC VALVE Normal PV without stenosis, physiologic insufficiency. GREAT VESSELS The aortic root is normal in size. PERICARDIUM Normal pericardium. No effusion. Pleural effusion is present. Other Information Study Quality: Adequate but tds/low plax/psax window due to body habitus Conclusion Small LV size and wall thickness. Overall systolic function is normal. LVEF is 55-60%. RV is small in size with normal function. The left atrium size is small. Probable trileaflet AV appears normal without stenosis. No insufficiency. Mild MV annular calcification without stenosis. Trace regurgitation. TV appears structurally normal with trivial regurgitation. Normal pericardium. No effusion.
[2025-01-31 19:04] LABS: CREATININE 1.13 MG/DL (0.40-0.90); TOTAL CARBON DIOXIDE 24.3 MMOL/L (24-32); eCRCL 44 ML/MIN; eGFR 57 ML/MIN
[2025-02-01] VITALS (8 sets, daily range): BP systolic 101–113; BP diastolic 67–82; PULSE 80–96; RESP 13–23; TEMP 97.2–98.8; O2SAT 95–100
--- NOTE | 2025-02-01 00:27 | CONSULTATION ---
DATE OF CONSULTATION: 01/31/2025 DICTATING PHYSICIAN: Bina Rehman MD REASON FOR CONSULTATION: History of metastatic colon cancer admitted with back pain and what appears like possible bile duct stent occlusion. HISTORY OF PRESENT ILLNESS: The patient is 29 years old, has a very complicated history for the past year and a half. She was diagnosed with sigmoid cancer. She underwent sigmoid resection and colostomy. Subsequently, apparently, she came back with bowel obstruction, was diagnosed with small bowel strangulation and had another operation for correction of the strangulation and ended up having an ileostomy. I do not have the operative report to review, but this was all from the history given by the parents. She was diagnosed to have metastatic colon cancer metastases to the lungs and to the liver. She apparently has had multiple liver metastases. She apparently had bile duct obstruction for which ERCP and stent was placed at [facility]. Subsequently, she also is receiving chemotherapy locally. She has lost about 40 pounds in the diagnosis of colon cancer. She has poor appetite. She is significantly ill and she came in this time due to severe back pain. Currently, her back pain has improved and she says her back pain is around at 1/10 now. The laboratory values do not show evidence of biliary obstruction. Bilirubin is normal. Alkaline phosphatase is moderately elevated understandably from the metastatic liver disease. PAST MEDICAL HISTORY: Negative. FAMILY HISTORY: Noncontributory. PERSONAL HISTORY: Noncontributory. REVIEW OF SYSTEMS: A 12-point review of systems essentially same as history of present illness. PHYSICAL EXAMINATION: GENERAL: On physical exam, she is awake, alert, appears cachectic, appears depressed. VITAL SIGNS: Normal. HEENT AND NECK: Supple. No thyromegaly. No JVD. No significant lymphadenopathy. Oral cavity within normal limits. ABDOMEN: Soft. Ileostomy is present. Bowel sounds are present. EXTREMITIES: Reveal no clubbing, cyanosis or edema. DIAGNOSTIC DATA: Laboratory values were reviewed. CT scan report was reviewed. Laboratory values as mentioned above is evident for mild elevation of alkaline phosphatase and mild elevation of AST. Normal bilirubin. There is no white count. She was neutropenic when she came in, but her leukocyte count has increased since she has come in. It was 1.2 when she came in with absolute neutrophil count being very low on reverse isolation and subsequently this morning the total white count is 4.9. IMPRESSION: A 29-year-old lady with metastatic colon cancer with multiple surgeries with biliary obstruction due to hepatic metastasis and on chemotherapy admitted with severe back pain. She has received symptomatic relief as it is apparent by the patient's history. As far as the bile duct stent occlusion reported on the CT scan, this should be a soft tissue occlusion and she might need stent revision electively. Currently, she does not seem to be obstructed clinically or from the laboratory values. In view of that, I recommend for no further recommendations. MRCP has been ordered and is awaited. We will simply follow the results of MRCP, give her symptomatic therapy for back pain and refer her to Dr. Miller who did the ERCP and bile duct placement initially. Discussed in detail with the patient and the parents. Bina Rehman MD TID: [id number] RECEIPT: [id number] VIJI/ODILIA
[2025-02-01 07:56] LABS: MEAN PLATELET VOLUME 7.8 FL (7.4-10.4); RED CELL DISTRIBUTION WIDTH 19.2 % (11.5-14.5)
[2025-02-01 08:21] LABS: CREATININE 1.37 MG/DL (0.40-0.90); TOTAL CARBON DIOXIDE 26.5 MMOL/L (24-32); eCRCL 36 ML/MIN; eGFR 45 ML/MIN
[2025-02-01] MEDS: VANCOMYCIN LEVEL IV ONE (08:28)
[2025-02-01] MEDS: potassium Cl 20 mEq SR tablet PO PRN (08:35)
[2025-02-01] MEDS: vancomycin inj 500 MG in normal saline 100ml IV soln 100 ML IV SCH (10:22)
--- NOTE | 2025-02-01 13:04 | PROGRESS NOTE- Residence ---
Progress Note - Resident Providers to CC Resident Creating Document: FABRICIOFABRICIO ORTIZEDDY, RES ~ Antibiotic Timeout Antibiotic Ordered?: Yes Subjective The patient has been evaluated at bedside. WBC trended up. The patient states that she is feeling better, tolerating liquid diet. Objective Vital Signs Date Time Temp Pulse Resp B/P (MAP) Pulse Ox O2 Delivery O2 Flow Rate FiO2 02/01/25 11:00 97.3 87 13 109/75 (86) 95 Room Air 02/01/25 08:00 0.0 Physical exam: General: Awake, alert, oriented. No acute distress. Thin patient. No anemia, Jaundice or clubbing. HEENT: Conjunctive are pink, sclerae clear, no icterus, pupil is equal in both sides, reactive to light, no ear discharge, no pharyngeal erythema or an edema. Neck: Supple, no adenopathy, thyromegaly. Trachea is midline. No JVD. Chest: Respiratory: Vesicular breath sounds. No ronchi, crepitus or wheezing. Resonance is normal upon percussion of all lung boyer. Cardiovascular: S1-S2 regular sinus rhythm and, regular rate, no gallops, no rubs, no murmurs Abdomen: No visible distention, Bowel sounds present on auscultation, on palpation: soft, nontender, no guarding, no rigidity. Presence of colostomy bag at the level of the left side of the abdomen. Extremities: No obvious deformities, no pitting edema bilaterally, capillary refill intact, peripheral pulsations are intact on both sides Neurologic: Mental status: alert and conscious, oriented to place, person and time, preserved memory, normal speech. Cranial nerves I-XII: Normal. Motor system: Preserved power, coordination, no evidenced involuntary movements, strength 5/5 in four extremities. Sensory system: Preserved temperature, pain and vibration sensation. 2+ deep tendon reflexes in biceps, triceps, quadriceps. Negative Babinski. Cerebellar: No nystagmus, dysdiadochokinesia, normal [id number] testing. Skin: Warm and dry. Result Diagram: 02/01/25 0704 02/01/25 0704 Coagulation Studies Laboratory Tests Test 01/30/25 21:21 Prothrombin Time 12.8 SECONDS (9.0-12.0) H INR International Normalized Ratio 1.3 INR Activated Partial Thromboplast Time 23 SECONDS (22-32) Coagulation Comments Assessment Assessment 29 years old female patient with past medical history of colon cancer, lung and liver metastasis status post colectomy currently undergoing chemotherapy came to the hospital with chief complaint of fever and back pain. Plan Plan CBD stent occlusion-ruled out: A: ALP levels around 200s.MRCP showed possible filling defects in the proximal aspect of the stent into the distal aspect of the CBD stent. The patient is stable, asymptomatic, liver function tests within reference range, ALP stable around 200s. Due to the clinical correlation CBD occlusion is not considered. Plan: Needs stent revision which can be done as an outpatient, Dr. Miller did ERCP and bile duct placement initially. Recommended close attention to this stent given to the patient. Moderate neutropenia likely secondary to chemotherapeutic immunosuppression: W BC improving. Was treated with vancomycin and Zosyn. Sepsis on POA Metastatic colon cancer with liver and lung Mets: AST and ALT within reference range, ALP around 200s. Status post colectomy Normocytic normochromic anemia Chronic back pain: On cyclobenzaprine 5 mg HS. [place] 5 mg/10 mg p.r.n. for moderate/severe pain respectively Severe protein calorie malnutrition Hypoalbuminemia I spent total of more than 35 minutes of critical care time. Code status: Full code DVT prophylaxis: On Eliquis 5 mg b.i.d. GI prophylaxis: Pantoprazole 40 mg p.o. Pain management: [place] 5 mg/10 mg Diet/nutrition: Tolerating liquid diet, advance as tolerated. Prognosis: Guarded Disposition: Needs stent revision which can be done as an outpatient, Dr. Miller did ERCP and bile duct placement initially. Recommended close attention to this stent given to the patient. Eddy Ortiz Internal Medicine Resident [facility] Date of Service: Feb 01, 2025 Billing Provider: HARRIET COY MD,EDDY MICHELLE, RES Feb 01, 2025 13:04
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
[2025-02-02 02:00] VITALS: BP 115/79; PULSE 111; RESP 11; TEMP 97.9; O2SAT 99
[2025-02-02] MEDS: morphine 4 MG/ML inj SYRINge IV PRN (02:19)
--- NOTE | 2025-02-02 04:57 | CONSULTATION ---
DATE OF CONSULTATION: 02/01/2025 DICTATING PHYSICIAN: Aristeo Miller MD REASON FOR CONSULTATION: I am seeing the patient at the request of Dr. Maki for evaluation of febrile neutropenia. HISTORY OF PRESENT ILLNESS: The patient is a 29-year-old female with known metastatic colon cancer who was admitted to this facility a couple of days ago with fever and neutropenia. She was diagnosed with colon cancer about a year and a half ago. She did undergo resection of a colon mass and she was found to have evidence of metastatic disease predominantly involving the liver. She does receive chemotherapy through [facility]. She believes that she is on FOLFOX and she is followed by Dr. Negro. She is also followed by Dr. Mason in [place] from [facility]. She has also been seen by Dr. Miller in the past and she did have a biliary stent placed for obstructive reasons. She initially had a plastic stent that was later replaced by a metal stent. When she came into the hospital, she was complaining of back pain along with her fever. She states that her back pain is not new. She states that her pain episodically flares. She was neutropenic when she first presented but that has resolved. She also had a fever when she first came in but that has also resolved. She denies any breathing trouble or cough. She does not have abdominal pain. She denies jaundice. She does have a port that has been functioning normally. Blood cultures have been negative. She was apparently supposed to receive chemotherapy last week but this was held up due to her low blood counts. She normally receives chemotherapy every 2 weeks. She has been trying to work on her weight and she is currently around 85 pounds. She does work with physical therapy at baseline. She states that her back has been settling down and she feels close to her baseline. Her is at the bedside. PAST MEDICAL HISTORY: Metastatic colon cancer with involvement at the liver. She has had obstruction in the past requiring biliary stent placement. She has chronic episodic back pain. There is also mention in the chart that she has metastases involving the lungs. PAST SURGICAL HISTORY: Colon surgery per Dr. Junior for initial resection of a colon mass. I believe she had a second procedure to deal with bowel obstruction related to adhesions. ALLERGIES: PROCHLORPERAZINE. MEDICATIONS: 1. Vancomycin. 2. Zosyn. 3. Cyclobenzaprine. 4. Corlanor. 5. Ferrous sulfate 6. Fentanyl patch. 7. Cetirizine. 8. Apixaban. 9. Lactobacillus. 10. Colace. 11. Pantoprazole. 12. Ondansetron. FAMILY HISTORY: Noncontributory. Interestingly, she does not have a family history of colon cancer and she did undergo genetic testing that was apparently negative. SOCIAL HISTORY: She is . She lives locally in [place]. She does not smoke. PHYSICAL EXAMINATION: VITAL SIGNS: She is now afebrile with stable vital signs. GENERAL: She is a very pleasant young female, sitting up in bed in no acute distress. HEENT: Sclerae anicteric. Mouth is clear. NECK: She has a right-sided port in place that is not accessed. LUNGS: Clear to auscultation bilaterally. HEART: Regular rate and rhythm. ABDOMEN: Soft without significant distention. EXTREMITIES: No edema. LABORATORY DATA: Her white blood cell count is 5700, hemoglobin 9.4, platelets 250,000. Her creatinine is 1.37. Her procalcitonin was 77. Her bilirubin is normal. Her ALT is normal. Her AST is in the 40s and her alkaline phosphatase is in the low 200s. INR 1.3. On imaging, she did have an MRCP performed that shows a common bile duct stent in place. She does have some filling defects at the proximal aspect as well as the distal aspect, likely representing tumor. There maybe some debris present as well. Echocardiogram demonstrates a normal ejection fraction. CT of the abdomen/pelvis demonstrates innumerable hepatic masses. IMPRESSION: 1. Febrile neutropenia on presentation that has since resolved. The most likely mechanism would be translocation from the gastrointestinal tract. She does not have another obvious source of infection at this time. There has been some concern for occlusion of her biliary stent with cholangitis but her liver function tests actually look fairly good. She has been evaluated by gastroenterology and no intervention is planned. She may need something done electively down the line. 2. Metastatic colon cancer, currently on chemotherapy that has been held due to low blood counts. Neutropenia has resolved. She does have some persisting anemia. 3. Chronic episodic back pain, currently at baseline. 4. Acute kidney injury that may be related to vancomycin and Zosyn. She does have a very low weight and it is unclear if her creatinine is actually reflective of her true renal function. RECOMMENDATIONS: Given that her neutropenia and fever have resolved, I would recommend discontinuing vancomycin and Zosyn. Hopefully, her renal function will stabilize and we will see how she does in the next day or two. LFTs will be followed. She will need to follow up with either her surgeon in [place] or GI regarding the biliary system. She will also need to follow up with Dr. Negro regarding resumption of her chemotherapy. I will continue to follow her while she is here and I thank you for allowing me to participate in her care. Aristeo Miller MD TID: [id number] RECEIPT: [id number] RONEY/KARON
[2025-02-02 06:46] LABS: MEAN PLATELET VOLUME 7.6 FL (7.4-10.4); RED CELL DISTRIBUTION WIDTH 19.1 % (11.5-14.5)
[2025-02-02 06:53] LABS: CREATININE 1.00 MG/DL (0.40-0.90); TOTAL CARBON DIOXIDE 24.5 MMOL/L (24-32); eCRCL 50 ML/MIN; eGFR 65 ML/MIN
[2025-02-02 07:00] VITALS: BP 122/88; PULSE 107; RESP 17; TEMP 98; O2SAT 98
[2025-02-02] MEDS: HYDROmorphone inj. 0.5 MG/0.5 ML DISP.SYRIN IV PRN (07:06)
[2025-02-02 08:00] VITALS: RESP 17; O2SAT 98
[2025-02-02] MEDS: HYDROcodone/acetaminophen 5mg/325mg tablet PO PRN (09:18)
[2025-02-02 11:00] VITALS: BP 123/87; PULSE 69; RESP 13; TEMP 97.4; O2SAT 98
[2025-02-02] MEDS: HYDROcodone/acetaminophen 10/325mg tab PO PRN (14:18)
[2025-02-02 15:00] VITALS: BP 135/81; PULSE 79; RESP 11; TEMP 98.5; O2SAT 92
[2025-02-02 17:24] VITALS: RESP 16
--- NOTE | 2025-02-02 18:45 | DISCHARGE SUMMARY-Residence ---
Discharge Summary Providers to CC ~ Discharge Summary Admission Diagnosis: Neutropenic fever Hospital Course DATE OF ADMISSION: DATE OF DISCHARGE: Date of Service: Feb 02, 2025 Billing Provider: PUMA MATHIAS MD, VENKATESH, [facility] Feb 02, 2025 18:45
[2025-02-02] MEDS ORDERED: VANCOMYCIN LEVEL IV ONE (20:30)
== END 2025-02-02 17:45 | disposition home or self-care (01) | DRG 720 ==
LOC: ER 09:37 → ED HOLD 19:52 → EDBEDREQ 22:19 → PCU 3S 23:04
PROVIDERS: ADMIT Internal Medicine; ATTEND Family Medicine
DX: A41.9 Sepsis, unspecified organism (principal); C78.00 Secondary malignant neoplasm of unspecified lung; C78.7 Secondary malignant neoplasm of liver and intrahepatic bile duct; E43 Unspecified severe protein-calorie malnutrition; D70.1 Agranulocytosis secondary to cancer chemotherapy; C18.7 Malignant neoplasm of sigmoid colon; D84.9 Immunodeficiency, unspecified; D64.9 Anemia, unspecified; N17.9 Acute kidney failure, unspecified; M54.9 Dorsalgia, unspecified; G89.29 Other chronic pain; Z68.1 Body mass index [BMI] 19.9 or less, adult; T45.1X5A Adverse effect of antineoplastic and immunosuppressive drugs, initial encounter; Y92.89 Other specified places as the place of occurrence of the external cause; Z93.3 Colostomy status; Z79.899 Other long term (current) drug therapy; Z88.8 Allergy status to other drugs, medicaments and biological substances
CPT/HCPCS: 36415; 71045; 74176; 74181; 76700; 80048; 80053; 80061; 80076; 80202; 81003; 81025; 83036; 83605; 83690; 83735; 83880; 84100; 84132; 84145; 85007; 85025; 85610; 85651; 85730; 86140; 87040; 87081; 93005; 93306; 96365; 96367; 96375; 96376; 99285; A6258; G0378; J1171; J1885; J2270; J2405; J2543; J3360; J3373; J3374; J7030; J7040; J7120